=== PATIENT | male | born 1965 | race Caucasian/White ===

== ENCOUNTER 2016-09-14 13:31 | Observation (INO) | payer MEDICARE ==
[2016-09-14] MEDS ORDERED: Nitrostat 0.4 MG (ED) SL ONE ×2 (13:40→13:49)
[2016-09-14] MEDS ORDERED: Sodium Chloride 0.9% 1000 ML 1,000 ML ONE (13:49)
--- NOTE | 2016-09-14 13:57 | ERPHSYRPT ---
- History of Present Illness Historian: patient Exam Limitations: no limitations Patient Subjective Stated Complaint: PT REPORTS CHEST PAIN RADIATING TO LEFT SIDE ET ARM BEGINNING 3 DAYS AGO-DENIES INCREASED WORK OF BREATHING BUT REPORTS PAIN INCREASES WITH DEEP BREATHING-INTERMITTANT COUGH-DENIES N/V/D Triage Nursing Assessment: PT FLUSHED PALE ET DRY UPON ARRIVAL-RESP NONLABORED- RIGHT RADIAL PULSE REGULAR ET STRONG-LUNGS DIMINISHED-REPORTS NUMBNESS TO LEFT FACE-LIGHTHEADEDNESS Physician History: Patient with history of cardiac stent 2 years ago for apparent myocardial infarction with chest pain left-sided for the past 3 days worse today. Also feels a little lightheaded today with some pain in the left upper chest left arm and neck and also some pain in the left lateral chest area. No nausea or vomiting. No fever or chills. Patient did take a full aspirin and Plavix at home already today. Patient does not have nitroglycerin at home. 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 Timing/Duration: today, day(s) (3), worse Activities at Onset: none Quality: aching, cramping, fullness, pressure, throbbing, tightness Location: other (left) Chest Pain Radiation: jaw, neck, arm Severity of Pain-Max: severe Severity of Pain-Current: severe Modifying Factors: Improves With: nothing Associated Symptoms: shortness of breath, dizziness, No nausea, No vomiting, No heartburn, No hurts to breathe Prior Chest Pain/Cardiac Workup: cardiac cath Nitro Today/Relief: 0.4 mg x 1, provided by ED Aspirin Treatment Today: 325 mg x 1, provided at home (and plavix) Allergies/Adverse Reactions: No Known Drug Allergies Allergy (Verified 09/14/16 17:50) Home Medications: Aspirin 81 gm Chew [Baby Aspirin 81 mg Chew] 80 tab PO DAILY 12/16/15 [ History] Clopidogrel Bisulfate 75 mg [PLAVIX 75 MG Tablet] 75 tab PO DAILY [History] Hx Tetanus, Diphtheria Vaccination/Date Given: Yes Hx Influenza Vaccination/Date Given: No Hx Pneumococcal Vaccination/Date Given: No Immunizations Up to Date: Yes - Review of Systems Constitutional: No Symptoms Eyes: No Symptoms Ears, Nose, & Throat: No Symptoms Respiratory: No Symptoms Cardiac: Chest Pain Abdominal/Gastrointestinal: No Symptoms Genitourinary Symptoms: No Symptoms Musculoskeletal: No Symptoms Skin: No Symptoms Neurological: No Symptoms Psychological: No Symptoms Endocrine: No Symptoms Hematologic/Lymphatic: No Symptoms, Easy Bruising - Past Medical History Pertinent Past Medical History: Yes Neurological History: No Pertinent History ENT History: No Pertinent History Cardiac History: Coronary Artery Disease, Hypertension Respiratory History: No Pertinent History Endocrine Medical History: No Pertinent History Musculoskeletal History: No Pertinent History GI Medical History: No Pertinent History History: No Pertinent History Psycho-Social History: No Pertinent History Male Reproductive Disorders: No Pertinent History Other Medical History: BLOOD CLOT LEFT LEG, stent placed in past - Past Surgical History Past Surgical History: Yes Neuro Surgical History: No Pertinent History Cardiac: Cardiac Catheterization, Cardiac Stent Respiratory: No Pertinent History Gastrointestinal: No Pertinent History Genitourinary: No Pertinent History Musculoskeletal: No Pertinent History Male Surgical History: No Pertinent History Other Surgical History: stent in left leg - Social History Smoking Status: Current every day smoker How long have you smoked: 40 Exposure to second hand smoke: Yes Drug Use: none Patient Lives Alone: No - Nursing Vital Signs Temperature: 98.4 F Temperature Source: Oral Pulse Rate: 76 Respiratory Rate: 22 Pain Intensity: 7 - Physical Exam General Appearance: moderate distress, alert, anxiety Eye Exam: PERRL/EOMI Ears, Nose, Throat Exam: normal ENT inspection Neck Exam: normal inspection, non-tender, supple, full range of motion Respiratory Exam: normal breath sounds, lungs clear Cardiovascular Exam: regular rate/rhythm, normal heart sounds, normal peripheral pulses Gastrointestinal/Abdomen Exam: soft, normal bowel sounds, No tenderness, No distention, No mass, No guarding, No rebound Rectal Exam: deferred Back Exam: normal inspection, normal range of motion, No CVA tenderness Extremity Exam: normal inspection, normal range of motion, No calf tenderness, No sonia's sign Neurologic Exam: alert, oriented x 3, cooperative Skin Exam: normal color, warm, dry, No rash Lymphatic Exam: No adenopathy SpO2 Interpretation: normal SpO2: 100 Oxygen Delivery: Room Air - Course Nursing assessment & vital signs reviewed: Yes EKG Interpreted by Me: RATE (75), Sinus Rhythm, NORMAL AXIS, NORMAL INTERVALS, NORMAL QRS, Non-specific ST Changes, Other (no acute changes and no previous EKG available for comparison) - Radiology Exams Chest X-ray Interpretation: Reviewed by me, Discussed w/ radiologist, Negative Ordered Tests: Active Orders 24 hr Category Date Time Status Bedrest with BRP/BSC ROUTINE Activity 09/14/16 17:07 Active Admission/Status Order ROUTINE Care 09/14/16 17:07 Active Code Status Order ROUTINE Care 09/14/16 17:07 Active IV Care Q6H Care 09/14/16 17:07 Active Implement Chest Pain Pathway ROUTINE Care 09/14/16 17:07 Active Miscellaneous Nursing Order ROUTINE Care 09/14/16 17:07 Active Lopez Bertrand, Apply ROUTINE Care 09/14/16 17:07 Active Telemetry ROUTINE Care 09/14/16 17:07 Active Weight,Daily 0600 Care 09/14/16 17:07 Active Cardiac Diet Diet 09/14/16 Dinner Completed LIPID PROFILE AM.LAB Lab 09/15/16 05:08 Completed TROPONIN Q3H Lab 09/14/16 16:45 Completed TROPONIN Q3H Lab 09/14/16 19:50 Completed TROPONIN Q3H Lab 09/14/16 23:00 Completed TROPONIN Q3H Lab 09/15/16 02:00 Completed EKG Q8HX2,QAMX3,PRN RT 09/14/16 17:07 Completed Transfer Order Routine Transfer 09/14/16 16:39 Completed Medication Summary Discontinued Medications Generic Name Dose Route Start Last Admin Trade Name Freq PRN Reason Stop Dose Admin Acetaminophen 650 mg 09/14/16 17:07 09/15/16 05:36 Tylenol 325 Mg PO 10/14/16 17:06 650 mg Q4H PRN PRN Administration PAIN AND/OR FEVER Al Hydrox/Mg Hydrox/Simethicone 30 ml 09/14/16 17:07 Maalox Es 30 Ml Unit Dose PO 10/14/16 17:06 Q4H PRN PRN INDIGESTION Aspirin 325 mg 09/15/16 10:00 Ecotrin 325 Mg PO 10/15/16 09:59 DAILY LESLI Aspirin 81 mg 09/15/16 10:00 09/15/16 09:58 Ecotrin 81 Mg PO 10/15/16 09:59 81 mg DAILY LESLI Administration Clopidogrel Bisulfate 75 mg 09/15/16 10:00 09/15/16 09:58 Plavix 75 Mg Tablet PO 10/15/16 09:59 75 mg DAILY LESLI Administration Sodium Chloride 1,000 mls @ 100 mls/hr 09/14/16 13:45 09/14/16 22:59 Sodium Chloride 0.9% 1000 Ml IV 10/14/16 13:44 100 mls/hr .Q10H LESLI Administration Sodium Chloride Confirm 09/14/16 13:49 Sodium Chloride 0.9% 1000 Ml Administered 09/14/16 13:50 Dose 1,000 mls @ ud .ROUTE .STK-MED ONE Nicotine 21 mg 09/15/16 01:30 09/15/16 01:39 Nicoderm Cq 21 Mg TOP 10/15/16 01:29 21 mg Q24H LESLI Administration Nicotine 21 mg 09/15/16 22:00 Nicoderm Cq 21 Mg TOP 10/15/16 01:29 QPM LESLI Nicotine Confirm 09/15/16 01:32 Nicoderm Cq 21 Mg Administered 09/15/16 01:33 Dose 21 mg .ROUTE .STK-MED ONE Nitroglycerin 0.4 mg 09/14/16 13:40 09/14/16 14:07 Nitrostat 0.4 Mg (Ed) SL 09/14/16 13:41 0.4 mg STAT ONE Administration Nitroglycerin Confirm 09/14/16 13:49 Nitrostat 0.4 Mg (Ed) Administered 09/14/16 13:50 Dose 0.4 mg SL .STK-MED ONE Nitroglycerin 1 gm 09/14/16 14:37 09/14/16 14:42 Nitro-Bid 2% Ud Packets TOP 09/14/16 14:38 1 gm STAT ONE Administration Nitroglycerin Confirm 09/14/16 14:41 Nitro-Bid 2% Ud Packets Administered 09/14/16 14:42 Dose 1 gm .ROUTE .STK-MED ONE Nitroglycerin 1 gm 09/14/16 22:00 09/15/16 05:36 Nitro-Bid 2% Ud Packets TOP 10/14/16 21:59 1 gm Q8HT LESLI Administration Ondansetron HCl 4 mg 09/14/16 17:07 Zofran 4 Mg/2 Ml Vial IV 10/14/16 17:06 Q4H PRN PRN NAUSEA/VOMITING Lab/Rad Data: Laboratory Result Diagrams 09/14/16 14:26 09/14/16 14:26 Laboratory Results 09/14/16 09/14/16 09/14/16 Range/Units 16:45 14:26 14:26 WBC (4.0-10.5) K/mm3 RBC (4.1-5.6) M/mm3 Hgb (12.5-18.0) gm/dl Hct (42-50) % MCV (78-100) fl MCH (26-32) pg MCHC (32-36) g/dl RDW (11.5-14.0) % Plt Count (150-450) K/mm3 MPV (6-9.5) fl Gran % (36.0-66.0) % Lymphocytes % (24.0-44.0) % Monocytes % (0.0-12.0) % Eosinophils % (0.00-5.0) % Basophils % (0.0-0.4) % Basophils # (0-0.4) INR 0.94 (0.8-3.0) PTT 28.8 (24.1-36.1) SECONDS Sodium 141 (136-145) mEq/L Potassium 3.6 (3.5-5.1) mEq/L Chloride 107 (98-107) mEq/L Carbon Dioxide 23.7 (21-32) mEq/L Anion Gap 14.3 (5-15) MEQ/L BUN 9 (9-20) mg/dL Creatinine 0.85 (0.55-1.30) mg/dl Estimated GFR > 60 ML/MIN Glucose 101 (70-110) MG/DL Calcium 8.8 (8.5-10.1) mg/dL Total Bilirubin 0.3 (0.2-1.0) mg/dL AST 21 (15-37) U/L ALT 26 (12-78) U/L Alkaline Phosphatase 71 (46-116) U/L Troponin I < 0.017 (0.000-0.056) ng/ml Serum Total Protein 7.3 (6.4-8.2) gm/dL Albumin 3.8 (3.4-5.0) g/dL 09/14/16 09/14/16 Range/Units 14:26 13:45 WBC 5.5 (4.0-10.5) K/mm3 RBC 4.78 (4.1-5.6) M/mm3 Hgb 14.6 (12.5-18.0) gm/dl Hct 43.5 (42-50) % MCV 91.0 (78-100) fl MCH 30.5 (26-32) pg MCHC 33.6 (32-36) g/dl RDW 13.6 (11.5-14.0) % Plt Count 250 (150-450) K/mm3 MPV 9.9 H (6-9.5) fl Gran % 46.8 (36.0-66.0) % Lymphocytes % 38.8 (24.0-44.0) % Monocytes % 8.9 (0.0-12.0) % Eosinophils % 5.1 H (0.00-5.0) % Basophils % 0.4 (0.0-0.4) % Basophils # 0.02 (0-0.4) INR (0.8-3.0) PTT (24.1-36.1) SECONDS Sodium (136-145) mEq/L Potassium (3.5-5.1) mEq/L Chloride (98-107) mEq/L Carbon Dioxide (21-32) mEq/L Anion Gap (5-15) MEQ/L BUN (9-20) mg/dL Creatinine (0.55-1.30) mg/dl Estimated GFR ML/MIN Glucose (70-110) MG/DL Calcium (8.5-10.1) mg/dL Total Bilirubin (0.2-1.0) mg/dL AST (15-37) U/L ALT (12-78) U/L Alkaline Phosphatase (46-116) U/L Troponin I < 0.017 (0.000-0.056) ng/ml Serum Total Protein (6.4-8.2) gm/dL Albumin (3.4-5.0) g/dL - Progress Progress: improved Air Movement: good Progress Note: 09/14/16 16:38Patient markedly improved after administration of subungual nitroglycerin then then placed on nitroglycerin paste has had no further pain since that time. Troponin is negative EKG with no acute changes and chest x- ray normal. Case discussed with Dr. Cabello patient will be placed in observation [facility] for further evaluation treatment which is in agreement to the patient at this time. Blood Culture(s) Obtained: No Antibiotics given: No Discussed with : Akbar Will see patient in: hospital (observation) Counseled pt/family regarding: lab results, diagnosis - Departure Time of Disposition: 16:39 Departure Disposition: Observation Clinical Impression: Acute coronary insufficiency syndrome Condition: Fair Critical Care Time: No
[2016-09-14] MEDS: Sodium Chloride 0.9% 1000 ML 1,000 ML IV SCH ×2 (14:07→22:59)
--- NOTE | 2016-09-14 14:35 | XRAY ---
Indication: Chest pain. Comparison: March 20, 2016. Portable chest again demonstrates normal heart, lungs, and bony thorax.
[2016-09-14] MEDS ORDERED: NITRO-BID 2% UD PACKETS TOP ONE (14:37)
[2016-09-14] MEDS ORDERED: NITRO-BID 2% UD PACKETS ONE (14:41)
[2016-09-14 14:44] LABS: BASOPHIL % 0.4 % (0.0-0.4); Eosinophil % 5.1 % (0.00-5.0); Granulocytes % 46.8 % (36.0-66.0); Lymphocytes % 38.8 % (24.0-44.0); Mean Corpuscular Hemoglobin 30.5 pg (26-32); Mean Platelet Volume 9.9 fl (6-9.5); Monocytes % 8.9 % (0.0-12.0); Platelet Count 250 K/mm3 (150-450); Red Blood Count 4.78 M/mm3 (4.1-5.6); Red Cell Distribution Width 13.6 % (11.5-14.0); White Blood Count 5.5 K/mm3 (4.0-10.5)
[2016-09-14 14:50] LABS: INR 0.94 (0.8-3.0); PROTIME 10.5 SECONDS (8.83-12.87)
[2016-09-14 14:53] LABS: PTT 28.8 SECONDS (24.1-36.1)
[2016-09-14 14:58] LABS: ALBUMIN 3.8 g/dL (3.4-5.0); ALKALINE PHOSPHATASE 71 U/L (46-116); ANION GAP 14.3 MEQ/L (5-15); BILIRUBIN,TOTAL 0.3 mg/dL (0.2-1.0); BLOOD UREA NITROGEN 9 mg/dL (9-20); CHLORIDE 107 mEq/L (98-107); Carbon Dioxide 23.7 mEq/L (21-32); Glucose 101 MG/DL (70-110); Potassium 3.6 mEq/L (3.5-5.1); SGOT/AST 21 U/L (15-37); SGPT/ALT 26 U/L (12-78); SODIUM 141 mEq/L (136-145); Total Protein 7.3 gm/dL (6.4-8.2)
[2016-09-14] MEDS ORDERED: MAALOX ES 30 ML UNIT DOSE PO PRN (17:07)
[2016-09-14] MEDS ORDERED: TYLENOL 325 MG PO PRN (17:07)
[2016-09-14] MEDS ORDERED: Zofran 4 MG/2 ML VIAL IV PRN (17:07)
[2016-09-14] MEDS: NITRO-BID 2% UD PACKETS TOP SCH (22:01)
[2016-09-15] MEDS ORDERED: Nicoderm CQ 21 MG TOP SCH ×2 (01:30→22:00)
[2016-09-15] MEDS ORDERED: Nicoderm CQ 21 MG ONE (01:32)
[2016-09-15] MEDS: NITRO-BID 2% UD PACKETS TOP SCH (05:36)
--- NOTE | 2016-09-15 07:58 | PCM.HP ---
History of Present Illness - Chief Complaint Chief Complaint: Chest pain for 1-2 days History of Present Illness: is a 51 year old male.Patient with history of cardiac stent 2 years ago for apparent myocardial infarction with chest pain left-sided for the past 3 days worse today. Also feels a little lightheaded today with some pain in the left upper chest left arm and neck and also some pain in the left lateral chest area. No nausea or vomiting. No fever or chills. Patient did take a full aspirin and Plavix at home already today. Patient does not have nitroglycerin at home. 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 Timing/Duration: today, day(s) (3), worse Activities at Onset: none Quality: aching, cramping, fullness, pressure, throbbing, tightness Location: other (left) Chest Pain Radiation: jaw, neck, arm Severity of Pain-Max: severe Severity of Pain-Current: severe Modifying Factors: Improves With: nothing Associated Symptoms: shortness of breath, dizziness, No nausea, No vomiting, No heartburn, No hurts to breathe Prior Chest Pain/Cardiac Workup: cardiac cath Nitro Today/Relief: 0.4 mg x 1, provided by ED Aspirin Treatment Today: 325 mg x 1, provided at home (and plavix) - Review of Systems Constitutional: No Fever, No Chills Eyes: No Symptoms Ears, Nose, & Throat: No Symptoms Respiratory: No Cough, No Short Of Breath Cardiac: Chest Pain, No Edema, No Syncope Abdominal/Gastrointestinal: No Abdominal Pain, No Nausea, No Vomiting, No Diarrhea Genitourinary Symptoms: No Dysuria Musculoskeletal: No Back Pain, No Neck Pain Skin: No Rash Neurological: No Dizziness, No Focal Weakness, No Sensory Changes Psychological: No Symptoms Endocrine: No Symptoms Hematologic/Lymphatic: No Symptoms Immunological/Allergic: No Symptoms Medications & Allergies Home Medications: Home Medication List Aspirin 81 gm Chew [Baby Aspirin 81 mg Chew] 80 tab PO DAILY 12/16/15 [ History Confirmed 09/14/16] Clopidogrel Bisulfate 75 mg [PLAVIX 75 MG Tablet] 75 tab PO DAILY [History Confirmed 09/14/16] Allergies/Adverse Reactions: Allergies Allergy/AdvReac Type Severity Reaction Status Date / Time No Known Drug Allergies Allergy Verified 09/14/16 17:50 - Past Medical History Past Medical History: Yes Neurological History: No Pertinent History ENT History: No Pertinent History Cardiac History: Other Respiratory History: No Pertinent History Endocrine Medical History: No Pertinent History Musculoskelatal History: No Pertinent History GI Medical History: No Pertinent History History: No Pertinent History Pyscho-Social History: No Pertinent History Male Reproductive Disorders: No Pertinent History Comment: BLOOD CLOT LEFT LEG, stent placed in past - Past Surgical History Past Surgical History: Yes Neuro Surgical History: No Pertinent History Cardiac History: Cardiac Stent Respiratory Surgery: No Pertinent History GI Surgical History: No Pertinent History Genitourinary Surgical Hx: No Pertinent History Musculskeletal Surgical Hx: No Pertinent History Male Surgical History: No Pertinent History Other Surgical History: stent in left leg - Social History Smoking Status: Heavy tobacco smoker How long have you smoked: 20 years Exposure to second hand smoke: Yes Alcohol: None Drug Use: none - Physical Exam Vital Signs: Vital Signs - 24 hr Temp Pulse Pulse Resp BP Pulse Ox 09/15/16 07:32 98.2 F 64 18 115/65 98 09/15/16 04:00 98.4 F 68 17 103/50 95 09/14/16 23:59 97.9 F 62 18 107/57 97 09/14/16 20:00 98.2 F 68 20 104/55 96 09/14/16 17:28 98.2 F 59 L 20 118/60 96 09/14/16 17:11 98.2 F 59 L 20 118/60 96 09/14/16 17:09 98.2 F 59 L 20 118/60 96 09/14/16 16:47 98.4 F 76 22 100 09/14/16 16:05 60 16 90/38 100 09/14/16 15:15 67 18 113/61 98 09/14/16 14:44 70 18 108/52 95 09/14/16 13:50 100 09/14/16 13:33 98.4 F 76 80 22 150/87 100 General Appearance: no apparent distress, alert Neurologic Exam: alert, oriented x 3, cooperative, normal mood/affect, nml cerebellar function, nml station & gait, sensation nml, No motor deficits Eye Exam: PERRL/EOMI, eyes nml inspection Ears, Nose, Throat Exam: normal ENT inspection, TMs normal, pharynx normal, moist mucous membranes Neck Exam: normal inspection, non-tender, supple, full range of motion Respiratory Exam: normal breath sounds, lungs clear, No respiratory distress Cardiovascular Exam: regular rate/rhythm, normal heart sounds, normal peripheral pulses Gastrointestinal/Abdomen Exam: soft, normal bowel sounds, No tenderness, No mass Back Exam: normal inspection, normal range of motion, No CVA tenderness, No vertebral tenderness Extremity Exam: normal inspection, normal range of motion, pelvis stable Skin Exam: normal color, warm, dry, No rash Lymphatic Exam: No adenopathy Results - Labs Lab/Micro Results: Lab Results-Last 24 Hours 09/14/16 09/14/16 09/15/16 Range/Units 19:50 23:00 02:00 Troponin I < 0.017 < 0.017 < 0.017 (0.000-0.056) ng/ml Triglycerides (30-200) mg/dL Cholesterol (100-200) mg/dL LDL Cholesterol (5-99) mg/dL HDL Cholesterol (35-60) mg/dL Heart Disease Risk Ratio 09/15/16 Range/Units 05:08 Troponin I (0.000-0.056) ng/ml Triglycerides 93 (30-200) mg/dL Cholesterol 140 (100-200) mg/dL LDL Cholesterol 95 (5-99) mg/dL HDL Cholesterol 31 L (35-60) mg/dL Heart Disease Risk Ratio 4.5 - Other Procedures and Tests Respiratory Therapy 09/16/16 05:00 EKG ONCE 09/17/16 05:00 EKG ONCE Assessment/Plan (1) Acute coronary insufficiency syndrome Status: Acute Assessment & Plan: Chief Complaint Diagnosis Chest pain for 1-2 days Allergies Allergy/AdvReac Type Severity Reaction Status Date / Time No Known Drug Allergies Allergy Verified 09/14/16 17:50 Vital Signs (Last 24 hours) Temp Pulse Resp BP Pulse Ox 09/15/16 16:18 98.4 F 76 22 100 09/15/16 10:01 97.8 F 80 20 126/68 97 09/15/16 07:32 98.2 F 64 18 115/65 98 09/15/16 04:00 98.4 F 68 17 103/50 95 09/14/16 23:59 97.9 F 62 18 107/57 97 09/14/16 20:00 98.2 F 68 20 104/55 96 Current Medications Discontinued Medications Generic Name Dose Route Start Last Admin Trade Name Freq PRN Reason Stop Dose Admin Acetaminophen 650 mg 09/14/16 17:07 09/15/16 05:36 Tylenol 325 Mg PO 10/14/16 17:06 650 mg Q4H PRN PRN Administration PAIN AND/OR FEVER Al Hydrox/Mg Hydrox/Simethicone 30 ml 09/14/16 17:07 Maalox Es 30 Ml Unit Dose PO 10/14/16 17:06 Q4H PRN PRN INDIGESTION Aspirin 325 mg 09/15/16 10:00 Ecotrin 325 Mg PO 10/15/16 09:59 DAILY LESLI Aspirin 81 mg 09/15/16 10:00 09/15/16 09:58 Ecotrin 81 Mg PO 10/15/16 09:59 81 mg DAILY LESLI Administration Clopidogrel Bisulfate 75 mg 09/15/16 10:00 09/15/16 09:58 Plavix 75 Mg Tablet PO 10/15/16 09:59 75 mg DAILY LESLI Administration Sodium Chloride 1,000 mls @ 100 mls/hr 09/14/16 13:45 09/14/16 22:59 Sodium Chloride 0.9% 1000 Ml IV 10/14/16 13:44 100 mls/hr .Q10H LESLI Administration Sodium Chloride Confirm 09/14/16 13:49 Sodium Chloride 0.9% 1000 Ml Administered 09/14/16 13:50 Dose 1,000 mls @ ud .ROUTE .STK-MED ONE Nicotine 21 mg 09/15/16 01:30 09/15/16 01:39 Nicoderm Cq 21 Mg TOP 10/15/16 01:29 21 mg Q24H LESLI Administration Nicotine 21 mg 09/15/16 22:00 Nicoderm Cq 21 Mg TOP 10/15/16 01:29 QPM LESLI Nicotine Confirm 09/15/16 01:32 Nicoderm Cq 21 Mg Administered 09/15/16 01:33 Dose 21 mg .ROUTE .STK-MED ONE Nitroglycerin 0.4 mg 09/14/16 13:40 09/14/16 14:07 Nitrostat 0.4 Mg (Ed) SL 09/14/16 13:41 0.4 mg STAT ONE Administration Nitroglycerin Confirm 09/14/16 13:49 Nitrostat 0.4 Mg (Ed) Administered 09/14/16 13:50 Dose 0.4 mg SL .STK-MED ONE Nitroglycerin 1 gm 09/14/16 14:37 09/14/16 14:42 Nitro-Bid 2% Ud Packets TOP 09/14/16 14:38 1 gm STAT ONE Administration Nitroglycerin Confirm 09/14/16 14:41 Nitro-Bid 2% Ud Packets Administered 09/14/16 14:42 Dose 1 gm .ROUTE .STK-MED ONE Nitroglycerin 1 gm 09/14/16 22:00 09/15/16 05:36 Nitro-Bid 2% Ud Packets TOP 10/14/16 21:59 1 gm Q8HT LESLI Administration Ondansetron HCl 4 mg 09/14/16 17:07 Zofran 4 Mg/2 Ml Vial IV 10/14/16 17:06 Q4H PRN PRN NAUSEA/VOMITING Intake & Output (Last 24 hours) 09/13/16 09/14/16 09/15/16 09/16/16 11:59 11:59 11:59 11:59 Intake Total 2886 Output Total 1600 Balance 1286 Weight 74.843 kg Laboratory Results (Last 24 hours) 09/15/16 09/15/16 09/14/16 05:08 02:00 23:00 Troponin I < 0.017 < 0.017 Triglycerides 93 Cholesterol 140 LDL Cholesterol 95 HDL Cholesterol 31 L Heart Disease Risk Ratio 4.5 09/14/16 19:50 Troponin I < 0.017 Triglycerides Cholesterol LDL Cholesterol HDL Cholesterol Heart Disease Risk Ratio Orders (Last 24 hours) Category Date Time Status Bedrest with BRP/BSC ROUTINE Activity 09/14/16 17:07 Active Admission/Status Order ROUTINE Care 09/14/16 17:07 Active Code Status Order ROUTINE Care 09/14/16 17:07 Active IV Care Q6H Care 09/14/16 17:07 Active Implement Chest Pain Pathway ROUTINE Care 09/14/16 17:07 Active Miscellaneous Nursing Order ROUTINE Care 09/14/16 17:07 Active Lopez Bertrand, Apply ROUTINE Care 09/14/16 17:07 Active Telemetry ROUTINE Care 09/14/16 17:07 Active Weight,Daily 0600 Care 09/14/16 17:07 Active Rehabilitation Team Lead/Discharge Plan ROUTINE Cons 09/14/16 17:48 Active Discharge Routine Discharge 09/15/16 09:22 Ordered Discharge/Telephone Order Routine Discharge 09/15/16 09:22 Active LIPID PROFILE AM.LAB Lab 09/15/16 05:08 Completed TROPONIN Q3H Lab 09/14/16 16:45 Completed TROPONIN Q3H Lab 09/14/16 19:50 Completed TROPONIN Q3H Lab 09/14/16 23:00 Completed TROPONIN Q3H Lab 09/15/16 02:00 Completed Acetaminophen 325 mg [Tylenol 325 mg] Med 09/14/16 17:07 Discontinued 650 mg PO Q4H PRN PRN Aspirin EC 325 mg [Ecotrin 325 MG] Med 09/15/16 10:00 Discontinued 325 mg PO DAILY Aspirin EC 81 mg [Ecotrin 81 mg] Med 09/15/16 10:00 Discontinued 81 mg PO DAILY Clopidogrel Bisulfate 75 mg [PLAVIX 75 MG Tablet] Med 09/15/16 10:00 Discontinued 75 mg PO DAILY Mag Hydrox/Al Hydrox/Simeth [Maalox Es 30 ml Unit Med 09/14/16 17:07 Discontinued Dose] 30 ml PO Q4H PRN PRN Nicotine 21 mg [Nicoderm CQ 21 MG] Med 09/15/16 01:32 Discontinued 21 mg .ROUTE .STK-MED ONE Nicotine 21 mg [Nicoderm CQ 21 MG] Med 09/15/16 01:30 Discontinued 21 mg TOP Q24H Nicotine 21 mg [Nicoderm CQ 21 MG] Med 09/15/16 22:00 Discontinued 21 mg TOP QPM Nitroglycerin 2 %Ointment [Nitro-Bid 2% Ud Packets Med 09/14/16 22:00 Discontinued *] 1 gm TOP Q8HT Ondansetron HCl 4 mg/2 ml [Zofran 4 MG/2 ML VIAL] Med 09/14/16 17:07 Discontinued 4 mg IV Q4H PRN PRN Cardiolite Stress Test-RT ONCE RT 09/15/16 09:12 Active EKG ONCE RT 09/14/16 21:30 Completed EKG ONCE RT 09/15/16 05:00 Completed EKG ONCE RT 09/16/16 05:00 Active EKG ONCE RT 09/17/16 05:00 Active EKG Q8HX2,QAMX3,PRN RT 09/14/16 17:07 Completed Smoking Cessation Education ONCE RT 09/14/16 17:48 Completed Transfer Order Routine Transfer 09/14/16 16:39 Completed Patient Care Notes (Last 24 hours) 09/15/16 10:51 Respiratory Note by Rupal Carey CARDIOLITE STRESS TEST SCHEDULED FOR MondaySeptember AT 6AM ORDERED BY DR. MARTINEZ. NURSE NOTIFIED. Initialized on 09/15/16 10:51 - END OF NOTE Code(s): I20.0 - UNSTABLE ANGINA (2) Chest pain Status: Acute Qualifiers: Chest pain type: precordial pain Qualified Code(s): R07.2 - Precordial pain Code(s): R07.9 - CHEST PAIN, UNSPECIFIED
[2016-09-15] MEDS ORDERED: PLAVIX 75 MG Tablet PO SCH (10:00)
[2016-09-15] MEDS ORDERED: BABY ASPIRIN 81 MG CHEW PO SCH (10:00)
[2016-09-15] MEDS ORDERED: Ecotrin 325 MG PO SCH (10:00)
[2016-09-15] MEDS ORDERED: ECOTRIN 81 MG PO SCH (10:00)
[2016-09-15 10:04] VITALS: BP 126/68
[2016-09-15 16:18] VITALS: PULSE 76; O2SAT 100
--- NOTE | 2016-09-15 17:33 | PCM.DCORD ---
- Discharge Discharge Date: 09/15/16 Disposition: Home, Self-Care Condition: Stable Prescriptions: Continue Aspirin 81 gm Chew [Baby Aspirin 81 mg Chew] 80 tab PO DAILY Clopidogrel Bisulfate 75 mg [PLAVIX 75 MG Tablet] 75 tab PO DAILY Instructions: Heart-Healthy Diet, Atypical Chest Pain, Quit Smoking Additional Instructions: Follow up with at [facility] on 09/22/16 @ 1045a.m. COME TO HOSPITAL DIRECTED BY RESPIRATORY DEPARTMENT FOR YOUR STRESS TEST @ 6 a.m. Follow up with: TA MARTINEZ MD [Primary Care Provider] - 09/22/16 10:45 am Forms: Discharge Instructions
== END 2016-09-15 10:20 | disposition home or self-care (01) ==
LOC: ED 13:31 → MED SURG 17:05
PROVIDERS: ADMIT General Practice; ATTEND General Practice
DX: I20.0 Unstable angina (principal); Z72.0 Tobacco use; R07.89 Other chest pain; Z79.899 Other long term (current) drug therapy; Z79.82 Long term (current) use of aspirin
CPT/HCPCS: 36000; 36415; 71010; 80053; 80061; 83721; 84484; 85025; 85610; 85730; 93005; 93041; 93268; 96360; 96361; 99284; 99285; G0378

== ENCOUNTER 2016-09-20 06:44 | Emergency (ER) | payer MEDICARE ==
[2016-09-20] MEDS ORDERED: Sodium Chloride 0.9% 1000 ML 1,000 ML IV SCH (07:15)
[2016-09-20] MEDS ORDERED: NITRO-BID 2% UD PACKETS TOP ONE (07:15)
[2016-09-20] MEDS ORDERED: NITRO-BID 2% UD PACKETS ONE (07:26)
[2016-09-20] MEDS ORDERED: Sodium Chloride 0.9% 1000 ML 1,000 ML ONE (07:26)
[2016-09-20 07:35] VITALS: O2SAT 95
[2016-09-20 07:48] LABS: BASOPHIL % 0.4 % (0.0-0.4); Eosinophil % 4.7 % (0.00-5.0); Granulocytes % 43.7 % (36.0-66.0); Lymphocytes % 42.5 % (24.0-44.0); Mean Cell Volume 92.2 fl (78-100); Mean Corpuscular Hemoglobin 30.7 pg (26-32); Mean Platelet Volume 9.7 fl (6-9.5); Monocytes % 8.7 % (0.0-12.0); Platelet Count 234 K/mm3 (150-450); Red Blood Count 4.73 M/mm3 (4.1-5.6); Red Cell Distribution Width 13.5 % (11.5-14.0); White Blood Count 5.5 K/mm3 (4.0-10.5)
[2016-09-20 07:49] LABS: COMPLETE URINE MICROSCOPIC? NO; Collection Type VOID
--- NOTE | 2016-09-20 07:51 | ERPHSYRPT ---
- History of Present Illness Time Seen by Provider: 09/20/16 07:07 Historian: patient Patient Subjective Stated Complaint: "my chest hurts and my back on the left side. my face feels funny too. i have been having this off and on for about a week now. i was released a couple days ago for the same thing. i am suppose to have a stress test on the 2nd." Triage Nursing Assessment: aox3, breathign easy unlabored, skin pink warm dry, moving all extrmities, no facial droop noted, perrla, no drift noted to bilat upper and lower extrimities Physician History: CC: chest pain hx: 51 y/o patient of Dr Webber. He has hx of prior stenting procedure at [facility] 2 years when his leg turned black. 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 He reports some chest pain since that time. He has more chest pain this week and was seen earlier and admitted to chest pain observation. He has heart stress test scheduled later this week. He called EMS for worsened chest pain over past 4 days, some dyspnea, some dizziness when up. He used NTG while in the hospital and it helped the pain. 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 ALL: None Meds: Plavix, ASA ILL: Vascular disease Surg: leg stenting Social: Continues to smoke Timing/Duration: day(s) (4) Severity of Pain-Max: moderate Severity of Pain-Current: mild Nitro Today/Relief: no nitro taken today Aspirin Treatment Today: 81 mg x 1, provided at home Allergies/Adverse Reactions: No Known Drug Allergies Allergy (Verified 09/20/16 06:47) Home Medications: Aspirin 81 gm Chew [Baby Aspirin 81 mg Chew] 80 tab PO DAILY 12/16/15 [ History] Clopidogrel Bisulfate 75 mg [PLAVIX 75 MG Tablet] 75 tab PO DAILY [History] Hx Tetanus, Diphtheria Vaccination/Date Given: Yes Hx Influenza Vaccination/Date Given: No Hx Pneumococcal Vaccination/Date Given: No - Review of Systems Constitutional: No Fever, No Chills Eyes: No Symptoms Ears, Nose, & Throat: No Symptoms Respiratory: Dyspnea, No Cough Cardiac: Chest Pain Abdominal/Gastrointestinal: No Abdominal Pain, No Nausea, No Vomiting Musculoskeletal: No Back Pain Skin: No Rash Neurological: No Headache All Other Systems: Reviewed and Negative - Past Medical History Pertinent Past Medical History: Yes Neurological History: No Pertinent History ENT History: No Pertinent History Cardiac History: Other Respiratory History: No Pertinent History Endocrine Medical History: No Pertinent History Musculoskeletal History: No Pertinent History GI Medical History: No Pertinent History History: No Pertinent History Psycho-Social History: No Pertinent History Male Reproductive Disorders: No Pertinent History Other Medical History: BLOOD CLOT LEFT LEG, stent placed in past - Past Surgical History Past Surgical History: Yes Neuro Surgical History: No Pertinent History Cardiac: Cardiac Stent Respiratory: No Pertinent History Gastrointestinal: No Pertinent History Genitourinary: No Pertinent History Musculoskeletal: No Pertinent History Male Surgical History: No Pertinent History Other Surgical History: stent in left leg - Social History Smoking Status: Heavy tobacco smoker How long have you smoked: 20 years Exposure to second hand smoke: Yes Drug Use: none Patient Lives Alone: Yes - Nursing Vital Signs Temperature: 98.0 F Temperature Source: Oral Pulse Rate: 58 Respiratory Rate: 18 Pain Intensity: 7 - Physical Exam General Appearance: alert Eye Exam: PERRL/EOMI Ears, Nose, Throat Exam: normal ENT inspection, moist mucous membranes Neck Exam: normal inspection, non-tender, supple Respiratory Exam: normal breath sounds, lungs clear Cardiovascular Exam: regular rate/rhythm, other (2+ DP pulses bilateral, 2+ femoral pulses), No murmur, No edema Gastrointestinal/Abdomen Exam: soft, No tenderness, No distention Male Genitalia Exam: normal genitalia Back Exam: normal inspection Extremity Exam: normal inspection, normal range of motion Neurologic Exam: alert, oriented x 3, cooperative Skin Exam: warm, dry, No rash SpO2 Interpretation: normal SpO2: 95 Oxygen Delivery: Room Air - Course Nursing assessment & vital signs reviewed: Yes EKG Interpreted by Me: RATE (65), Sinus Rhythm, NORMAL AXIS, NORMAL INTERVALS ( QTc 428), NORMAL QRS, NORMAL ST-T - Radiology Exams cxr X-ray Interpretation: Reviewed by me (copd, no acute) Ordered Tests: Active Orders 24 hr Category Date Time Status Director Imaging STAT Care 09/20/16 07:07 Active Clean Catch Urine Specimen STAT Care 09/20/16 07:15 Active EKG-ER Only STAT Care 09/20/16 07:07 Active IV Insertion STAT Care 09/20/16 07:07 Active Pulse Oximetry (ED) STAT Care 09/20/16 07:07 Active CHEST 1 VIEW (PORTABLE) Stat Exams 09/20/16 07:07 Taken CBC W DIFF Stat Lab 09/20/16 07:42 Completed CMP Stat Lab 09/20/16 07:42 Completed TROPONIN Q3H Lab 09/20/16 07:42 Completed TROPONIN Q3H Lab 09/20/16 10:15 Ordered TROPONIN Q3H Lab 09/20/16 13:15 Ordered TROPONIN Q3H Lab 09/20/16 16:15 Ordered TROPONIN Q3H Lab 09/20/16 19:15 Ordered UA Stat Lab 09/20/16 07:44 Completed Urine Triage Profile Stat Lab 09/20/16 07:44 Completed Medication Summary Generic Name Dose Route Start Last Admin Trade Name Freq PRN Reason Stop Dose Admin Sodium Chloride 1,000 mls @ 100 mls/hr 09/20/16 07:15 09/20/16 07:28 Sodium Chloride 0.9% 1000 Ml IV 10/20/16 07:14 100 mls/hr .Q10H LESLI Administration Discontinued Medications Generic Name Dose Route Start Last Admin Trade Name Freq PRN Reason Stop Dose Admin Sodium Chloride Confirm 09/20/16 07:26 Sodium Chloride 0.9% 1000 Ml Administered 09/20/16 07:27 Dose 1,000 mls @ ud .ROUTE .STK-MED ONE Nitroglycerin 1 gm 09/20/16 07:15 09/20/16 07:28 Nitro-Bid 2% Ud Packets TOP 09/20/16 07:16 1 gm STAT ONE Administration Nitroglycerin Confirm 09/20/16 07:26 Nitro-Bid 2% Ud Packets Administered 09/20/16 07:27 Dose 1 gm .ROUTE .STK-MED ONE Lab/Rad Data: Laboratory Result Diagrams 09/20/16 07:42 09/20/16 07:42 Laboratory Results 09/20/16 09/20/16 09/20/16 Range/Units 07:44 07:44 07:42 WBC (4.0-10.5) K/mm3 RBC (4.1-5.6) M/mm3 Hgb (12.5-18.0) gm/dl Hct (42-50) % MCV (78-100) fl MCH (26-32) pg MCHC (32-36) g/dl RDW (11.5-14.0) % Plt Count (150-450) K/mm3 MPV (6-9.5) fl Gran % (36.0-66.0) % Lymphocytes % (24.0-44.0) % Monocytes % (0.0-12.0) % Eosinophils % (0.00-5.0) % Basophils % (0.0-0.4) % Basophils # (0-0.4) Sodium (136-145) mEq/L Potassium (3.5-5.1) mEq/L Chloride (98-107) mEq/L Carbon Dioxide (21-32) mEq/L Anion Gap (5-15) MEQ/L BUN (9-20) mg/dL Creatinine (0.55-1.30) mg/dl Estimated GFR ML/MIN Glucose (70-110) MG/DL Calcium (8.5-10.1) mg/dL Total Bilirubin (0.2-1.0) mg/dL AST (15-37) U/L ALT (12-78) U/L Alkaline Phosphatase (46-116) U/L Troponin I < 0.017 (0.000-0.056) ng/ml Serum Total Protein (6.4-8.2) gm/dL Albumin (3.4-5.0) g/dL Ur Collection Type VOID Urine Color YELLOW (YELLOW) Urine Appearance CLEAR (CLEAR) Urine pH 5.0 (5-6) Ur Specific [place] 1.015 (1.005-1.025) Urine Protein NEGATIVE (Negative) Urine Glucose (UA) NEGATIVE (NEGATIVE) mg/dL Urine Ketones NEGATIVE (NEGATIVE) Urine Nitrite NEGATIVE (NEGATIVE) Urine Bilirubin NEGATIVE (NEGATIVE) Urine Urobilinogen 0.2 (0-1) mg/dL Urine WBC (Auto) NEGATIVE (NEGATIVE) Urine RBC (Auto) NEGATIVE (0-5) Freddie/ul Urine Opiates Level NEG. (NEGATIVE) Ur Methadone NEG. (NEGATIVE) Urine Barbiturates NEG. (NEGATIVE) Ur Phencyclidine (PCP) NEG. (NEGATIVE) Urine Amphetamine NEG. (NEGATIVE) U Benzodiazepine Level NEG. (NEGATIVE) Urine Cocaine NEG. (NEGATIVE) Urine Marijuana (THC) NEG. (NEGATIVE) Specimen Received 09/20/16 0720 09/20/16 09/20/16 Range/Units 07:42 07:42 WBC 5.5 (4.0-10.5) K/mm3 RBC 4.73 (4.1-5.6) M/mm3 Hgb 14.5 (12.5-18.0) gm/dl Hct 43.6 (42-50) % MCV 92.2 (78-100) fl MCH 30.7 (26-32) pg MCHC 33.3 (32-36) g/dl RDW 13.5 (11.5-14.0) % Plt Count 234 (150-450) K/mm3 MPV 9.7 H (6-9.5) fl Gran % 43.7 (36.0-66.0) % Lymphocytes % 42.5 (24.0-44.0) % Monocytes % 8.7 (0.0-12.0) % Eosinophils % 4.7 (0.00-5.0) % Basophils % 0.4 (0.0-0.4) % Basophils # 0.02 (0-0.4) Sodium 144 (136-145) mEq/L Potassium 4.2 (3.5-5.1) mEq/L Chloride 108 H (98-107) mEq/L Carbon Dioxide 25.5 (21-32) mEq/L Anion Gap 14.6 (5-15) MEQ/L BUN 9 (9-20) mg/dL Creatinine 0.87 (0.55-1.30) mg/dl Estimated GFR > 60 ML/MIN Glucose 90 (70-110) MG/DL Calcium 9.0 (8.5-10.1) mg/dL Total Bilirubin 0.1 L (0.2-1.0) mg/dL AST 20 (15-37) U/L ALT 20 (12-78) U/L Alkaline Phosphatase 69 (46-116) U/L Troponin I (0.000-0.056) ng/ml Serum Total Protein 7.0 (6.4-8.2) gm/dL Albumin 3.6 (3.4-5.0) g/dL Ur Collection Type Urine Color (YELLOW) Urine Appearance (CLEAR) Urine pH (5-6) Ur Specific [place] (1.005-1.025) Urine Protein (Negative) Urine Glucose (UA) (NEGATIVE) mg/dL Urine Ketones (NEGATIVE) Urine Nitrite (NEGATIVE) Urine Bilirubin (NEGATIVE) Urine Urobilinogen (0-1) mg/dL Urine WBC (Auto) (NEGATIVE) Urine RBC (Auto) (0-5) Freddie/ul Urine Opiates Level (NEGATIVE) Ur Methadone (NEGATIVE) Urine Barbiturates (NEGATIVE) Ur Phencyclidine (PCP) (NEGATIVE) Urine Amphetamine (NEGATIVE) U Benzodiazepine Level (NEGATIVE) Urine Cocaine (NEGATIVE) Urine Marijuana (THC) (NEGATIVE) Specimen Received - Progress Progress Note: 09/20/16 08:42 PAin better with NTG paste. Discussed smoking cessation with pt. He needs cardiology consultation. CAlled Dr Ray Pérez for [facility] and she advised transfer to [facility] for chest pain obs and cardiology consultation. Pt may need heart cath. Pt agreeeable. Discussed with .: Jeannette Pérez Will see patient in: hospital (observation) Counseled pt/family regarding: lab results, diagnosis, need for follow-up - Departure Time of Disposition: 08:43 Departure Disposition: Transfer Clinical Impression: Chest pain, rule out acute myocardial infarction, Peripheral vascular disease Condition: Fair Critical Care Time: No
[2016-09-20 08:20] LABS: ALBUMIN 3.6 g/dL (3.4-5.0); ALKALINE PHOSPHATASE 69 U/L (46-116); ANION GAP 14.6 MEQ/L (5-15); BILIRUBIN,TOTAL 0.1 mg/dL (0.2-1.0); BLOOD UREA NITROGEN 9 mg/dL (9-20); CHLORIDE 108 mEq/L (98-107); Carbon Dioxide 25.5 mEq/L (21-32); Glucose 90 MG/DL (70-110); Potassium 4.2 mEq/L (3.5-5.1); SGOT/AST 20 U/L (15-37); SGPT/ALT 20 U/L (12-78); SODIUM 144 mEq/L (136-145)
[2016-09-20 08:55] VITALS: BP 144/79; PULSE 55
--- NOTE | 2016-09-20 09:05 | XRAY ---
Indication: Chest pain. Comparison: September 14, 2016. Portable chest remains clear. Heart is not enlarged. Vascularity normal. Bony thorax intact. Impression: Stable nonacute chest.
== END 2016-09-20 10:30 | disposition short-term general hospital (02) ==
LOC: ED 06:44
DX: R07.89 Other chest pain (principal); I73.9 Peripheral vascular disease, unspecified
CPT/HCPCS: 93041; 99285; 96360; 96361; 93005; 81002; 36415; 80307; 85025; 80053; 84484; 71010; A9270

== ENCOUNTER 2016-09-26 02:04 | Emergency (ER) | payer MEDICARE ==
[2016-09-26] MEDS ORDERED: Vistaril 50 MG/ML IM ONE ×2 (02:22→02:36)
[2016-09-26 02:40] LABS: BASOPHIL % 0.3 % (0.0-0.4); Eosinophil % 3.1 % (0.00-5.0); Granulocytes % 51.3 % (36.0-66.0); Lymphocytes % 35.8 % (24.0-44.0); Mean Cell Volume 91.3 fl (78-100); Mean Corpuscular Hemoglobin 30.6 pg (26-32); Mean Platelet Volume 9.4 fl (6-9.5); Monocytes % 9.5 % (0.0-12.0); Platelet Count 219 K/mm3 (150-450); Red Blood Count 4.61 M/mm3 (4.1-5.6); White Blood Count 6.7 K/mm3 (4.0-10.5)
--- NOTE | 2016-09-26 02:46 | ERPHSYRPT ---
- History of Present Illness Time Seen by Provider: 09/26/16 02:13 Source: patient, EMS Patient Subjective Stated Complaint: "i started feeling off after taking my protonix tonight. the left side of my face feels tight. i have had this on and off since before i went to [facility]. i was looking on the internet about stuff and got myself all worked up when this started. 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 He has hx of PVD s/o iliac stenting. He was seen last week in ER with chest pain and transferred to [facility] for cardiology consultation. He went home 2 days ago on plavix and PPI. He reports left face numbness since midnight tonite. No focal weakness. No rashs but face feels hot. In the past he had some associated with left hand and leg numbness as well but does not have that today. He states he felt anxious. He thinks he had panic attack. He came to ER per EMS. No headache. Timing/Duration: today Severity: mild Allergies/Adverse Reactions: No Known Drug Allergies Allergy (Verified 09/26/16 02:10) Home Medications: Aspirin 81 gm Chew [Baby Aspirin 81 mg Chew] 80 tab PO DAILY 12/16/15 [ History] Clopidogrel Bisulfate 75 mg [PLAVIX 75 MG Tablet] 75 tab PO DAILY [History] PANTOPRAZOLE 40 mg Tablet [Protonix 40MG Tablet] 40 mg PO QPM 09/26/16 [ History] Hx Tetanus, Diphtheria Vaccination/Date Given: Yes Hx Influenza Vaccination/Date Given: No Hx Pneumococcal Vaccination/Date Given: No - Review of Systems Constitutional: No Fever, No Chills Eyes: No Vision Changes, No Double Vision Ears, Nose, & Throat: No Symptoms Respiratory: No Symptoms Cardiac: No Symptoms, No Chest Pain Abdominal/Gastrointestinal: No Abdominal Pain, No Nausea, No Vomiting Genitourinary Symptoms: No Symptoms Musculoskeletal: No Symptoms Skin: No Symptoms, No Rash Neurological: Parasthesia, No Dizziness, No Focal Weakness, No Headache Psychological: Anxiety All Other Systems: Reviewed and Negative - Past Medical History Pertinent Past Medical History: Yes Neurological History: No Pertinent History ENT History: No Pertinent History Cardiac History: Other Respiratory History: No Pertinent History Endocrine Medical History: No Pertinent History Musculoskeletal History: No Pertinent History GI Medical History: Ulcer History: No Pertinent History Psycho-Social History: No Pertinent History Male Reproductive Disorders: No Pertinent History Other Medical History: Arterial occlusion leg - Past Surgical History Past Surgical History: Yes Neuro Surgical History: No Pertinent History Cardiac: Cardiac Stent Respiratory: No Pertinent History Gastrointestinal: No Pertinent History Genitourinary: No Pertinent History Musculoskeletal: No Pertinent History Male Surgical History: No Pertinent History Other Surgical History: stent in left leg - Social History Smoking Status: Heavy tobacco smoker How long have you smoked: 20 years Exposure to second hand smoke: Yes Drug Use: none Patient Lives Alone: Yes - Nursing Vital Signs Nursing Vital Signs: Initial Vital Signs Temperature 97.6 F Temperature Source Oral Pulse Rate 72 Respiratory Rate 12 Blood Pressure [] 113/50 Pain Intensity 0 - Qiana Coma Scale Best Eye Response (Solomon): (4) open spontaneously Best Verbal Response (Qiana): (5) oriented Best Motor Response (Qiana): (6) obeys commands Qiana Total: 15 - Physical Exam General Appearance: alert Eye Exam: bilateral eye: PERRL, EOMI Ears, Nose, Throat Exam: normal ENT inspection, moist mucous membranes Neck Exam: normal inspection, non-tender, supple Respiratory: normal breath sounds, lungs clear Cardiovascular: regular rate/rhythm, other (2+ femoral pulses), No murmur, No pulse deficit Gastrointestinal: soft, No tenderness, No distention Male Genitalia: normal genitalia Back Exam: normal inspection, normal range of motion Extremity Exam: normal inspection, normal range of motion Peripheral Pulses: femoral (R): 2+, femoral (L): 2+ Mental Status: alert, oriented x 3, 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 Exam: normal hearing, normal speech, PERRL Motor/Sensory: no motor deficit, no sensory deficit, no pronator drift DTR: knee (R): 2+, knee (L): 2+ Skin Exam: normal color, warm, dry, No rash SpO2 Interpretation: normal SpO2: 96 Oxygen Delivery: Room Air - Course Nursing assessment & vital signs reviewed: Yes EKG Interpreted by Me: RATE (74), Sinus Rhythm, NORMAL AXIS, NORMAL INTERVALS ( QTc 455), NORMAL QRS, NORMAL ST-T - Radiology Exams cxr X-ray Interpretation: Reviewed by me, Negative - CT Exams head CT Interpretation: Tele-radiologist Report (0304AM: negative), No/Intracranial Hemorrhag Ordered Tests: Active Orders 24 hr Category Date Time Status Side Splitter STAT Care 09/26/16 02:21 Active EKG-ER Only STAT Care 09/26/16 02:21 Active IV Insertion STAT Care 09/26/16 02:21 Active NPO (ED) STAT Care 09/26/16 02:21 Active Pulse Oximetry (ED) STAT Care 09/26/16 02:21 Active CHEST 1 VIEW (PORTABLE) Stat Exams 09/26/16 02:22 Taken HEAD WITHOUT CONTRAST [CT] Stat Exams 09/26/16 02:22 Taken CBC W DIFF Stat Lab 09/26/16 02:33 Completed CMP Stat Lab 09/26/16 02:33 Completed PROTIME WITH INR Stat Lab 09/26/16 02:33 Completed PTT Stat Lab 09/26/16 02:33 Completed UA W/ MICROSCOPIC Stat Lab 09/26/16 03:13 Completed Urine Triage Profile Stat Lab 09/26/16 03:13 Completed Medication Summary Discontinued Medications Generic Name Dose Route Start Last Admin Trade Name Freq PRN Reason Stop Dose Admin Hydroxyzine HCl 50 mg 09/26/16 02:22 09/26/16 02:54 Vistaril 50 Mg/Ml IM 09/26/16 02:23 50 mg STAT ONE Administration Hydroxyzine HCl Confirm 09/26/16 02:36 Vistaril 50 Mg/Ml Administered 09/26/16 02:37 Dose 50 mg IM .STK-MED ONE Lab/Rad Data: Laboratory Result Diagrams 09/26/16 02:33 09/26/16 02:33 Laboratory Results 09/26/16 09/26/16 09/26/16 Range/Units 03:13 03:13 02:33 WBC (4.0-10.5) K/mm3 RBC (4.1-5.6) M/mm3 Hgb (12.5-18.0) gm/dl Hct (42-50) % MCV (78-100) fl MCH (26-32) pg MCHC (32-36) g/dl RDW (11.5-14.0) % Plt Count (150-450) K/mm3 MPV (6-9.5) fl Gran % (36.0-66.0) % Lymphocytes % (24.0-44.0) % Monocytes % (0.0-12.0) % Eosinophils % (0.00-5.0) % Basophils % (0.0-0.4) % Basophils # (0-0.4) INR 0.97 (0.8-3.0) PTT 27.4 (24.1-36.1) SECONDS Sodium (136-145) mEq/L Potassium (3.5-5.1) mEq/L Chloride (98-107) mEq/L Carbon Dioxide (21-32) mEq/L Anion Gap (5-15) MEQ/L BUN (9-20) mg/dL Creatinine (0.55-1.30) mg/dl Estimated GFR ML/MIN Glucose (70-110) MG/DL Calcium (8.5-10.1) mg/dL Total Bilirubin (0.2-1.0) mg/dL AST (15-37) U/L ALT (12-78) U/L Alkaline Phosphatase (46-116) U/L Serum Total Protein (6.4-8.2) gm/dL Albumin (3.4-5.0) g/dL Ur Collection Type CLEAN CATCH Urine Color YELLOW (YELLOW) Urine Appearance CLEAR (CLEAR) Urine pH 8.5 (5-6) Ur Specific [place] 1.015 (1.005-1.025) Urine Protein 30 (Negative) Urine Glucose (UA) NEGATIVE (NEGATIVE) mg/dL Urine Ketones NEGATIVE (NEGATIVE) Urine Nitrite NEGATIVE (NEGATIVE) Urine Bilirubin NEGATIVE (NEGATIVE) Urine Urobilinogen 0.2 (0-1) mg/dL Urine WBC (Auto) NEGATIVE (NEGATIVE) Urine RBC (Auto) NEGATIVE (0-5) Freddie/ul Urine Microscopic RBC 0-2 (0-2) /HPF Urine Microscopic WBC 0-2 (0-5) /HPF Urine Bacteria FEW (NEGATIVE) /HPF Urine Mucus SLIGHT (NEGATIVE) /HPF Urine Opiates Level NEG. (NEGATIVE) Ur Methadone NEG. (NEGATIVE) Urine Barbiturates NEG. (NEGATIVE) Ur Phencyclidine (PCP) NEG. (NEGATIVE) Urine Amphetamine NEG. (NEGATIVE) U Benzodiazepine Level NEG. (NEGATIVE) Urine Cocaine NEG. (NEGATIVE) Urine Marijuana (THC) NEG. (NEGATIVE) Specimen Received 09/26/16 0310 09/26/16 09/26/16 Range/Units 02:33 02:33 WBC 6.7 (4.0-10.5) K/mm3 RBC 4.61 (4.1-5.6) M/mm3 Hgb 14.1 (12.5-18.0) gm/dl Hct 42.1 (42-50) % MCV 91.3 (78-100) fl MCH 30.6 (26-32) pg MCHC 33.5 (32-36) g/dl RDW 13.0 (11.5-14.0) % Plt Count 219 (150-450) K/mm3 MPV 9.4 (6-9.5) fl Gran % 51.3 (36.0-66.0) % Lymphocytes % 35.8 (24.0-44.0) % Monocytes % 9.5 (0.0-12.0) % Eosinophils % 3.1 (0.00-5.0) % Basophils % 0.3 (0.0-0.4) % Basophils # 0.02 (0-0.4) INR (0.8-3.0) PTT (24.1-36.1) SECONDS Sodium 143 (136-145) mEq/L Potassium 3.0 L* (3.5-5.1) mEq/L Chloride 103 (98-107) mEq/L Carbon Dioxide 31.7 (21-32) mEq/L Anion Gap 11.4 (5-15) MEQ/L BUN 17 (9-20) mg/dL Creatinine 0.98 (0.55-1.30) mg/dl Estimated GFR > 60 ML/MIN Glucose 101 (70-110) MG/DL Calcium 8.2 L (8.5-10.1) mg/dL Total Bilirubin 0.2 (0.2-1.0) mg/dL AST 22 (15-37) U/L ALT 33 (12-78) U/L Alkaline Phosphatase 79 (46-116) U/L Serum Total Protein 7.0 (6.4-8.2) gm/dL Albumin 3.7 (3.4-5.0) g/dL Ur Collection Type Urine Color (YELLOW) Urine Appearance (CLEAR) Urine pH (5-6) Ur Specific [place] (1.005-1.025) Urine Protein (Negative) Urine Glucose (UA) (NEGATIVE) mg/dL Urine Ketones (NEGATIVE) Urine Nitrite (NEGATIVE) Urine Bilirubin (NEGATIVE) Urine Urobilinogen (0-1) mg/dL Urine WBC (Auto) (NEGATIVE) Urine RBC (Auto) (0-5) Freddie/ul Urine Microscopic RBC (0-2) /HPF Urine Microscopic WBC (0-5) /HPF Urine Bacteria (NEGATIVE) /HPF Urine Mucus (NEGATIVE) /HPF Urine Opiates Level (NEGATIVE) Ur Methadone (NEGATIVE) Urine Barbiturates (NEGATIVE) Ur Phencyclidine (PCP) (NEGATIVE) Urine Amphetamine (NEGATIVE) U Benzodiazepine Level (NEGATIVE) Urine Cocaine (NEGATIVE) Urine Marijuana (THC) (NEGATIVE) Specimen Received - Progress Progress Note: 09/26/16 02:47 Liikely anxiety. Nothing to suggest TAD. Will get head CT and TIA workup. NIH scale 0 per RN so TPA not indicated. 09/26/16 02:50 Records from [facility]: Echo 09-21-16: EF 60%, no regional wall motion abnormalities, mild MR, trace TR, RVSP 31 09/26/16 03:40 No further symptoms. He feels anxiety/stress is causing him problems. Will Rx vistrail until he can see Dr Martinez. Counseled pt/family regarding: lab results, diagnosis, need for follow-up, rad results - Departure Time of Disposition: 03:41 Departure Disposition: Home Clinical Impression: Facial paresthesia, Anxiety Condition: Stable Critical Care Time: No Referrals: TA MARTINEZ MD [Primary Care Provider] - Instructions: Anxiety -- Adult, Numbness/tingling Additional Instructions: No driving. Followup this week with dr Martinez. Prescriptions: Hydroxyzine HCl 1 tab PO Q6H PRN PRN #24 tablet PRN Reason: rash,rest
[2016-09-26 02:57] LABS: ALBUMIN 3.7 g/dL (3.4-5.0); ALKALINE PHOSPHATASE 79 U/L (46-116); ANION GAP 11.4 MEQ/L (5-15); BILIRUBIN,TOTAL 0.2 mg/dL (0.2-1.0); BLOOD UREA NITROGEN 17 mg/dL (9-20); CHLORIDE 103 mEq/L (98-107); Carbon Dioxide 31.7 mEq/L (21-32); Glucose 101 MG/DL (70-110); SGOT/AST 22 U/L (15-37); SGPT/ALT 33 U/L (12-78); SODIUM 143 mEq/L (136-145)
[2016-09-26 03:00] LABS: INR 0.97 (0.8-3.0); PROTIME 10.9 SECONDS (8.83-12.87)
[2016-09-26 03:02] LABS: PTT 27.4 SECONDS (24.1-36.1)
[2016-09-26 03:31] LABS: COMPLETE URINE MICROSCOPIC? YES; Collection Type CLEAN CATCH; Ph 8.5 (5-6)
[2016-09-26 03:32] LABS: Bacteria FEW /HPF (NEGATIVE); Mucus SLIGHT /HPF (NEGATIVE); WBC 0-2 /HPF (0-5)
[2016-09-26 05:12] VITALS: PULSE 68
[2016-09-26 06:31] VITALS: BP 120/76
--- NOTE | 2016-09-26 08:54 | XRAY ---
Indication: Left facial numbness and tingling. Anxiety. Multiple contiguous axial images obtained through the head without contrast. Comparison: February 03, 2016. Stable remote left basal ganglia lacunar infarct. No acute intracranial hemorrhage, abnormal extra-axial fluid collection, or mass effect. Fourth ventricle is midline without hydrocephalus. Sanders-white matter differentiation preserved. Bony calvarium intact. Visualized paranasal sinuses and mastoid air cells are pneumatized and clear. Impression: Stable remote left basal ganglia lacunar infarct. No new or acute intracranial abnormalities. Comment: Preliminary interpretation was made by [facility]. No discrepancy. CT DI 71.08
--- NOTE | 2016-09-26 08:56 | XRAY ---
Indication: Left facial and extremity numbness. Comparison: September 20, 2016. Portable chest again demonstrates normal heart and lungs. Bony thorax intact. No new/acute findings.
[2016-09-26 09:18] VITALS: O2SAT 96
== END 2016-09-26 09:18 | disposition home or self-care (01) ==
LOC: ED 02:04
DX: R20.9 Unspecified disturbances of skin sensation (principal); F41.9 Anxiety disorder, unspecified
CPT/HCPCS: 36000; 36415; 70450; 71010; 80053; 80307; 81000; 85025; 85610; 85730; 93005; 93041; 96372; 99284; J3410

== ENCOUNTER 2016-12-03 07:22 | Emergency (ER) | payer MEDICARE ==
[2016-12-03] MEDS ORDERED: Pepcid 20 MG VIAL IV ONE ×2 (07:25→07:38)
[2016-12-03] MEDS ORDERED: Sodium Chloride 0.9% 1000 ML 1,000 ML IV SCH (07:30)
[2016-12-03] MEDS ORDERED: Sodium Chloride 0.9% 1000 ML 1,000 ML IV STA (07:34)
[2016-12-03] MEDS ORDERED: Vistaril 50 MG/ML IM ONE ×2 (07:34→07:38)
[2016-12-03] MEDS ORDERED: Sodium Chloride 0.9% 1000 ML 1,000 ML ONE (07:38)
--- NOTE | 2016-12-03 07:40 | ERPHSYRPT ---
- History of Present Illness Time Seen by Provider: 12/03/16 07:23 Historian: patient, EMS Patient Subjective Stated Complaint: PT REPORTS ALL OVER ABD PAIN-STATES THAT HE WAS DX WITH A PARTIALY BLOCKED STENT-REPORTS DECREASED BOWEL MOVEMENTS- NAUSEA BUT NO VOMITING-STATES THAT HE HAS HAD PROBLEMS FOR 3 MONTHS BUT INCREASING WORSE Triage Nursing Assessment: PT PINK WARM ET [id number] IS [id number] NONLABORED ET EASY-PT REPORTS HE IS HAVING BLACK STOOLS Physician History: CC: abd pain Hx: 51 y/o patient of Dr Martinez/Maximo. He reports hx of PUD with EGD one month ago. Has known PVD post stenting of legs. He has lower abd pain. Some constipation. Went to [facility] ER [address] and labs. Went home with mag citrate. Had large BM that was black. Dr Marsh considering pancreas problem. Abnl cardiac stress in September but no subsequent cath. No fever or chills. Pain worse with eating. Still smoking but has cut down significantly. Taking PPI. Taking plavix and ASA. The abd pain is worse and persists so he came to ER. Aching, lower, radiates to groin. Allergies/Adverse Reactions: No Known Drug Allergies Allergy (Verified 12/03/16 07:30) Home Medications: Aspirin 81 gm Chew [Baby Aspirin 81 mg Chew] 80 tab PO DAILY 12/16/15 [ History] Clopidogrel Bisulfate 75 mg [PLAVIX 75 MG Tablet] 75 tab PO DAILY [History] PANTOPRAZOLE 40 mg Tablet [Protonix 40MG Tablet] 40 mg PO QPM 09/26/16 [ History] Acetaminophen with Codeine [Acetaminophen-Cod #2 Tablet] 1 each PO UD 12/03/16 [ History] Lipase/Protease/Amylase [Jb Mccall 24,000 Units Capsule] 1 each PO TID 12/03/16 [ History] Montelukast Sodium [Singulair] 10 mg PO DAILY 12/03/16 [History] Hx Tetanus, Diphtheria Vaccination/Date Given: Yes Hx Influenza Vaccination/Date Given: No Hx Pneumococcal Vaccination/Date Given: No Immunizations Up to Date: Yes - Review of Systems Constitutional: Malaise, Weakness, No Fever, No Chills Eyes: No Symptoms Ears, Nose, & Throat: No Symptoms Respiratory: No Cough, No Dyspnea Cardiac: No Chest Pain Abdominal/Gastrointestinal: Abdominal Pain, Nausea, Constipation, Melena, No Vomiting Genitourinary Symptoms: No Dysuria, No Hematuria, No Flank Pain, No Testicle Pain Musculoskeletal: No Back Pain Skin: No Rash Neurological: No Headache All Other Systems: Reviewed and Negative - Past Medical History Pertinent Past Medical History: Yes Neurological History: No Pertinent History ENT History: No Pertinent History Cardiac History: Other Respiratory History: No Pertinent History Endocrine Medical History: No Pertinent History Musculoskeletal History: No Pertinent History GI Medical History: Ulcer History: No Pertinent History Psycho-Social History: No Pertinent History Male Reproductive Disorders: No Pertinent History Other Medical History: Arterial occlusion leg - Past Surgical History Past Surgical History: Yes Neuro Surgical History: No Pertinent History Cardiac: Cardiac Stent Respiratory: No Pertinent History Gastrointestinal: Other (EGD) Genitourinary: No Pertinent History Musculoskeletal: No Pertinent History Male Surgical History: No Pertinent History Other Surgical History: stent in left leg - Social History Smoking Status: Current some day smoker How long have you smoked: 20 years Exposure to second hand smoke: No Drug Use: none Patient Lives Alone: Yes - Nursing Vital Signs Nursing Vital Signs: Initial Vital Signs Temperature 98.6 F Temperature Source Oral Pulse Rate 78 Respiratory Rate 18 Blood Pressure [] 161/89 Pain Intensity 6 - Physical Exam General Appearance: alert Eye Exam: PERRL/EOMI Ears, Nose, Throat Exam: normal ENT inspection, moist mucous membranes Neck Exam: normal inspection, non-tender, supple Respiratory Exam: normal breath sounds, lungs clear Cardiovascular Exam: regular rate/rhythm, No murmur Gastrointestinal/Abdomen Exam: soft, tenderness (diffuse lower discomfort, no rebound or guarding. No hernia. 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, sensation nml, No motor deficits Skin Exam: warm, dry, No rash SpO2 Interpretation: normal SpO2: 99 Oxygen Delivery: Room Air - Course Nursing assessment & vital signs reviewed: Yes EKG Interpreted by Me: RATE (70), Sinus Rhythm, NORMAL AXIS, NORMAL INTERVALS ( 430), NORMAL QRS, NORMAL ST-T - Radiology Exams AAS X-ray Interpretation: Interpreted by me (negative, no free air, no obstr, left iliac stent present) Ordered Tests: Active Orders 24 hr Category Date Time Status Clean Catch Urine Specimen STAT Care 12/03/16 07:25 Active EKG-ER Only STAT Care 12/03/16 07:34 Active IV Insertion STAT Care 12/03/16 07:25 Active NPO (ED) STAT Care 12/03/16 07:25 Active OBSTR/ACUTE ABDOMEN SERIES Stat Exams 12/03/16 07:25 Taken CBC W DIFF Stat Lab 12/03/16 07:57 Completed CMP Stat Lab 12/03/16 07:57 Completed LIPASE Stat Lab 12/03/16 07:57 Completed Lactic Acid Stat Lab 12/03/16 07:25 Completed Occult Blood,Stool Other Stat Lab 12/03/16 08:20 Completed UA Stat Lab 12/03/16 08:23 Completed Urine Triage Profile Stat Lab 12/03/16 08:20 Completed Medication Summary Generic Name Dose Route Start Last Admin Trade Name Freq PRN Reason Stop Dose Admin Sodium Chloride 1,000 mls @ 100 mls/hr 12/03/16 07:30 12/03/16 07:49 Sodium Chloride 0.9% 1000 Ml IV 01/02/17 07:29 Not Given .Q10H LESLI Discontinued Medications Generic Name Dose Route Start Last Admin Trade Name Freq PRN Reason Stop Dose Admin Famotidine 20 mg 12/03/16 07:25 12/03/16 07:48 Pepcid 20 Mg Vial IV 12/03/16 07:26 20 mg STAT ONE Administration Famotidine Confirm 12/03/16 07:38 Pepcid 20 Mg Vial Administered 12/03/16 07:39 Dose 20 mg IV .STK-MED ONE Hydroxyzine HCl 50 mg 12/03/16 07:34 12/03/16 07:49 Vistaril 50 Mg/Ml IM 12/03/16 07:35 50 mg STAT ONE Administration Hydroxyzine HCl Confirm 12/03/16 07:38 Vistaril 50 Mg/Ml Administered 12/03/16 07:39 Dose 50 mg IM .STK-MED ONE Sodium Chloride 1,000 mls @ 999 mls/hr 12/03/16 07:34 12/03/16 07:49 Sodium Chloride 0.9% 1000 Ml IV 12/03/16 08:34 999 mls/hr .Q1H1M STA Administration Lab/Rad Data: Laboratory Result Diagrams 12/03/16 07:57 12/03/16 07:57 Laboratory Results 12/03/16 12/03/16 12/03/16 Range/Units 08:23 08:20 08:20 WBC (4.0-10.5) K/mm3 RBC (4.1-5.6) M/mm3 Hgb (12.5-18.0) gm/dl Hct (42-50) % MCV (78-100) fl MCH (26-32) pg MCHC (32-36) g/dl RDW (11.5-14.0) % Plt Count (150-450) K/mm3 MPV (6-9.5) fl Gran % (36.0-66.0) % Lymphocytes % (24.0-44.0) % Monocytes % (0.0-12.0) % Eosinophils % (0.00-5.0) % Basophils % (0.0-0.4) % Basophils # (0-0.4) Sodium (136-145) mEq/L Potassium (3.5-5.1) mEq/L Chloride (98-107) mEq/L Carbon Dioxide (21-32) mEq/L Anion Gap (5-15) MEQ/L BUN (9-20) mg/dL Creatinine (0.55-1.30) mg/dl Estimated GFR ML/MIN Glucose (70-110) MG/DL Lactic Acid (0.4-2.0) Calcium (8.5-10.1) mg/dL Total Bilirubin (0.2-1.0) mg/dL AST (15-37) U/L ALT (12-78) U/L Alkaline Phosphatase (46-116) U/L Serum Total Protein (6.4-8.2) gm/dL Albumin (3.4-5.0) g/dL Lipase (73-393) U/L Ur Collection Type CCMS Urine Color YELLOW (YELLOW) Urine Appearance CLEAR (CLEAR) Urine pH 6.0 (5-6) Ur Specific [place] 1.020 (1.005-1.025) Urine Protein NEGATIVE (Negative) Urine Glucose (UA) NEGATIVE (NEGATIVE) mg/dL Urine Ketones TRACE (NEGATIVE) Urine Nitrite NEGATIVE (NEGATIVE) Urine Bilirubin NEGATIVE (NEGATIVE) Urine Urobilinogen NORMAL (0-1) mg/dL Urine WBC (Auto) NEGATIVE (NEGATIVE) Urine RBC (Auto) NEGATIVE (0-5) Freddie/ul Stool Occult Blood NEGATIVE (Negative) Urine Opiates Level POS. (NEGATIVE) Ur Methadone NEG. (NEGATIVE) Urine Barbiturates NEG. (NEGATIVE) Ur Phencyclidine (PCP) NEG. (NEGATIVE) Urine Amphetamine NEG. (NEGATIVE) U Benzodiazepine Level NEG. (NEGATIVE) Urine Cocaine NEG. (NEGATIVE) Urine Marijuana (THC) NEG. (NEGATIVE) Specimen Received 12/03/2016 0812/03/16 12/03/16 12/03/16 Range/Units 07:57 07:57 07:25 WBC 6.3 (4.0-10.5) K/mm3 RBC 4.97 (4.1-5.6) M/mm3 Hgb 15.0 (12.5-18.0) gm/dl Hct 44.9 (42-50) % MCV 90.3 (78-100) fl MCH 30.2 (26-32) pg MCHC 33.4 (32-36) g/dl RDW 13.0 (11.5-14.0) % Plt Count 226 (150-450) K/mm3 MPV 9.4 (6-9.5) fl Gran % 49.7 (36.0-66.0) % Lymphocytes % 37.3 (24.0-44.0) % Monocytes % 7.8 (0.0-12.0) % Eosinophils % 4.9 (0.00-5.0) % Basophils % 0.3 (0.0-0.4) % Basophils # 0.02 (0-0.4) Sodium 143 (136-145) mEq/L Potassium 3.6 (3.5-5.1) mEq/L Chloride 106 (98-107) mEq/L Carbon Dioxide 29.2 (21-32) mEq/L Anion Gap 11.0 (5-15) MEQ/L BUN 15 (9-20) mg/dL Creatinine 1.00 (0.55-1.30) mg/dl Estimated GFR > 60 ML/MIN Glucose 107 (70-110) MG/DL Lactic Acid 1.2 (0.4-2.0) Calcium 9.1 (8.5-10.1) mg/dL Total Bilirubin 0.3 (0.2-1.0) mg/dL AST 22 (15-37) U/L ALT 28 (12-78) U/L Alkaline Phosphatase 63 (46-116) U/L Serum Total Protein 7.4 (6.4-8.2) gm/dL Albumin 3.8 (3.4-5.0) g/dL Lipase 111 (73-393) U/L Ur Collection Type Urine Color (YELLOW) Urine Appearance (CLEAR) Urine pH (5-6) Ur Specific [place] (1.005-1.025) Urine Protein (Negative) Urine Glucose (UA) (NEGATIVE) mg/dL Urine Ketones (NEGATIVE) Urine Nitrite (NEGATIVE) Urine Bilirubin (NEGATIVE) Urine Urobilinogen (0-1) mg/dL Urine WBC (Auto) (NEGATIVE) Urine RBC (Auto) (0-5) Freddie/ul Stool Occult Blood (Negative) Urine Opiates Level (NEGATIVE) Ur Methadone (NEGATIVE) Urine Barbiturates (NEGATIVE) Ur Phencyclidine (PCP) (NEGATIVE) Urine Amphetamine (NEGATIVE) U Benzodiazepine Level (NEGATIVE) Urine Cocaine (NEGATIVE) Urine Marijuana (THC) (NEGATIVE) Specimen Received - Progress Progress Note: 12/03/16 08:35 CT THRH 5-11: mild ileus with increased stool in ascending colon, atherosclerotic disease. 12/03/16 08:43 Pt has black stool, but heme negative and stable normal hg. Reviewed CT from earlier this week which was negative. Labs here negative. He sees GI Dr Marsh. Will release and follow up advised. Etiology of his pain uncertain but apparently has been ongoing for quite some time and has had specialist evaluation. Advised he continue his PUD medications and call Dr Marsh/Akbar Monday. Counseled pt/family regarding: lab results, diagnosis, need for follow-up, rad results - Departure Time of Disposition: 08:44 Departure Disposition: Home Clinical Impression: Chronic abdominal pain, Smoker, chronic vascular disease Condition: Stable Critical Care Time: No Referrals: TA MARTINEZ MD [Primary Care Provider] - Instructions: Abdominal Pain-Adult, Quit Smoking, Peripheral Vascular (Arterial ) Disease Additional Instructions: No driving today. You need to work on continued smoking cessation. 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 Follow up with Dr Martinez. Return for problems or concerns. Continue your medications as already prescribed.
[2016-12-03 08:01] LABS: BASOPHIL % 0.3 % (0.0-0.4); Eosinophil % 4.9 % (0.00-5.0); Granulocytes % 49.7 % (36.0-66.0); Lymphocytes % 37.3 % (24.0-44.0); Mean Cell Volume 90.3 fl (78-100); Mean Corpuscular Hemoglobin 30.2 pg (26-32); Mean Platelet Volume 9.4 fl (6-9.5); Monocytes % 7.8 % (0.0-12.0); Platelet Count 226 K/mm3 (150-450); Red Blood Count 4.97 M/mm3 (4.1-5.6); White Blood Count 6.3 K/mm3 (4.0-10.5)
[2016-12-03 08:22] LABS: ALBUMIN 3.8 g/dL (3.4-5.0); ALKALINE PHOSPHATASE 63 U/L (46-116); BILIRUBIN,TOTAL 0.3 mg/dL (0.2-1.0); BLOOD UREA NITROGEN 15 mg/dL (9-20); CHLORIDE 106 mEq/L (98-107); Carbon Dioxide 29.2 mEq/L (21-32); Glucose 107 MG/DL (70-110); LIPASE 111 U/L (73-393); Potassium 3.6 mEq/L (3.5-5.1); SGOT/AST 22 U/L (15-37); SGPT/ALT 28 U/L (12-78); SODIUM 143 mEq/L (136-145); Total Protein 7.4 gm/dL (6.4-8.2)
[2016-12-03 08:33] LABS: Collection Type CCMS
[2016-12-03 08:37] LABS: COMPLETE URINE MICROSCOPIC? NO
--- NOTE | 2016-12-03 08:45 | XRAY ---
Indication: Abdominal pain. Comparison: Portable chest September 26, 2016. 2 views of the abdomen demonstrates mild scattered colonic fecal debris throughout. No focal bowel dilatation, obstruction, or free air. Solid organs unremarkable. Left iliac stent graft. Osseous structures intact with mild lumbar degenerative changes. Single frontal chest again demonstrates normal heart, lungs, and bony thorax. Impression: 1. Fecal stasis without obstruction. 2. Stable normal one view chest.
[2016-12-03 09:32] VITALS: BP 155/64; PULSE 69; O2SAT 98
== END 2016-12-03 09:31 | disposition home or self-care (01) ==
LOC: ED 07:22
DX: R10.9 Unspecified abdominal pain (principal); I99.9 Unspecified disorder of circulatory system; R11.0 Nausea; I73.9 Peripheral vascular disease, unspecified
CPT/HCPCS: 36000; 36415; 74022; 80053; 80307; 81002; 82272; 83605; 83690; 85025; 93005; 96360; 96372; 96374; 99284; 99285; J3410

== ENCOUNTER 2016-12-28 17:00 | Emergency (ER) | payer MEDICARE ==
[2016-12-28 17:10] VITALS: O2SAT 100
--- NOTE | 2016-12-28 17:17 | ERPHSYRPT ---
- History of Present Illness Time Seen by Provider: 12/28/16 17:05 Historian: patient Exam Limitations: no limitations Patient Subjective Stated Complaint: ulcer pain for 3 months Triage Nursing Assessment: ulcer pain for 3 months[address] supposed to see dr gotti tomorrow but pain meds for ulcer pain arent working for 3 moths and now abd pain is going up into chest. skin warm and dry. denies n/v/d. normal bm. pulses present. groin pain with urination Physician History: Pain completely reproducible to palpation over epigastrium and chest . No SOB, No dizziness. Timing/Duration: week(s) (12) Activities at Onset: none Quality: dullness Abdominal Pain Onset Location: epigastric Severity of Pain-Max: mild Severity of Pain-Current: mild Modifying Factors: Improves With: antacids Associated Symptoms: denies symptoms Previous symptoms: same symptoms as today (with chronic alcoholic pancreatic insufficiency. Taking his creon.) Allergies/Adverse Reactions: No Known Drug Allergies Allergy (Verified 12/28/16 17:10) Home Medications: Aspirin 81 gm Chew [Baby Aspirin 81 mg Chew] 80 tab PO DAILY 12/16/15 [ History] Clopidogrel Bisulfate 75 mg [PLAVIX 75 MG Tablet] 75 tab PO DAILY [History] PANTOPRAZOLE 40 mg Tablet [Protonix 40MG Tablet] 40 mg PO QPM 09/26/16 [ History] Lipase/Protease/Amylase [Jb Dr 24,000 Units Capsule] 1 each PO BID 12/03/16 [ History] Montelukast Sodium [Singulair] 10 mg PO DAILY 12/03/16 [History] Hx Tetanus, Diphtheria Vaccination/Date Given: Yes Hx Influenza Vaccination/Date Given: No Hx Pneumococcal Vaccination/Date Given: No Immunizations Up to Date: Yes - Review of Systems Constitutional: No Symptoms Eyes: No Symptoms Ears, Nose, & Throat: No Symptoms Respiratory: No Symptoms Cardiac: No Symptoms Abdominal/Gastrointestinal: Abdominal Pain, No Nausea, No Vomiting Musculoskeletal: No Symptoms Skin: No Symptoms Neurological: No Symptoms Psychological: No Symptoms Endocrine: No Symptoms Hematologic/Lymphatic: No Symptoms Immunological/Allergic: No Symptoms - Past Medical History Pertinent Past Medical History: Yes Neurological History: No Pertinent History ENT History: No Pertinent History Cardiac History: Other Respiratory History: No Pertinent History Endocrine Medical History: No Pertinent History Musculoskeletal History: No Pertinent History GI Medical History: Ulcer History: No Pertinent History Psycho-Social History: No Pertinent History Male Reproductive Disorders: No Pertinent History Other Medical History: Arterial occlusion leg - Past Surgical History Past Surgical History: Yes Neuro Surgical History: No Pertinent History Cardiac: No Pertinent History Respiratory: No Pertinent History Gastrointestinal: Other Genitourinary: No Pertinent History Musculoskeletal: No Pertinent History Male Surgical History: No Pertinent History Other Surgical History: stent in left leg - Social History Smoking Status: Former smoker How long have you smoked: 20 years Exposure to second hand smoke: Yes Drug Use: none Patient Lives Alone: No - Nursing Vital Signs Nursing Vital Signs: Initial Vital Signs Temperature 97.7 F Temperature Source Oral Pulse Rate 73 Respiratory Rate 18 Blood Pressure [Right Arm] 153/85 Pain Intensity 8 - Physical Exam General Appearance: mild distress Eye Exam: eyes nml inspection Ears, Nose, Throat Exam: normal ENT inspection, TMs normal, pharynx normal, moist mucous membranes Neck Exam: normal inspection, non-tender, supple, full range of motion Respiratory Exam: normal breath sounds, lungs clear, airway intact Cardiovascular Exam: regular rate/rhythm, normal heart sounds, normal peripheral pulses Gastrointestinal/Abdomen Exam: soft, normal bowel sounds Extremity Exam: normal inspection, normal range of motion, pelvis stable Neurologic Exam: alert, oriented x 3, cooperative Skin Exam: normal color, warm, dry SpO2 Interpretation: normal SpO2: 100 Oxygen Delivery: Room Air - Course Nursing assessment & vital signs reviewed: Yes - Progress Progress: improved Discussed with : Other (Maximo tomorrow as scheduled.) Counseled pt/family regarding: diagnosis, need for follow-up - Departure Time of Disposition: 17:15 Departure Disposition: Home Clinical Impression: Chronic GERD Condition: Stable Critical Care Time: No Prescriptions: GI COCKTAIL 60 ml [GI COCKTAIL 60ML (Belladonn/Phenobarb/Lidoc*] 60 ml PO STAT #0 bottle
[2016-12-28] MEDS ORDERED: GI COCKTAIL 60ML (Belladonn/Phenobarb/Lidoc PO ONE (17:20)
[2016-12-28] MEDS ORDERED: MAALOX ES 30 ML UNIT DOSE ONE (17:25)
[2016-12-28] MEDS ORDERED: XYLOCAINE HCl Viscous ONE (17:25)
[2016-12-28] MEDS ORDERED: Donnatol Liquid ONE (17:26)
[2016-12-28 17:45] VITALS: BP 127/82; PULSE 61
== END 2016-12-28 17:44 | disposition home or self-care (01) ==
LOC: ED 17:00
DX: K21.9 Gastro-esophageal reflux disease without esophagitis (principal); R10.13 Epigastric pain; Z79.899 Other long term (current) drug therapy
CPT/HCPCS: 93005; 99283; 99284; A9270-GY

== ENCOUNTER 2016-12-30 00:55 | Emergency (ER) | payer MEDICARE ==
[2016-12-30 01:19] VITALS: O2SAT 99
--- NOTE | 2016-12-30 01:20 | ERPHSYRPT ---
- History of Present Illness Time Seen by Provider: 12/30/16 01:08 Historian: patient Exam Limitations: no limitations Patient Subjective Stated Complaint: STATES HES HAD ONGOING ABDOMINAL AND SIDE PAIN FOR 4 MTHS, STATES PAIN IN HIS GROIN AND AROUND SCROTUM, PAIN ON URINATION Triage Nursing Assessment: PATIENT PUPILS PERRLA3, L;TERRANCE SOUNDS CLEAR, PAIN IN PELVIC AREA AROUND SCROTUM, BOWEL SOUNDS X4, FLANK PAIN UP LEFT SIDE AND INTO RIBS STOMACH TENDER TO TOUCH Physician History: FOR THE PAST 4 MONTHS PT HAS HAD A SORE THROAT AND INTERMITTENT LEFT CHEST AND ABDOMINAL PAIN LASTING UP TO 5 HOURS PER EPISODE; FOR THE PAST 2 DAYS RIGHT GROIN PAIN AND DYSURIA. PT STATES HE HAS BEEN DIAGNOSED WITH PANCREATITIS. PT DENIES VOMITING, FEVER, DIARRHEA. LAST BM WAS YESTERDAY & NOT DIARRHEAL. Allergies/Adverse Reactions: No Known Drug Allergies Allergy (Verified 12/28/16 17:10) Home Medications: Aspirin 81 gm Chew [Baby Aspirin 81 mg Chew] 80 tab PO DAILY 12/16/15 [ History] Clopidogrel Bisulfate 75 mg [PLAVIX 75 MG Tablet] 75 tab PO DAILY [History] PANTOPRAZOLE 40 mg Tablet [Protonix 40MG Tablet] 40 mg PO QPM 09/26/16 [ History] Lipase/Protease/Amylase [Creon Dr 24,000 Units Capsule] 1 each PO BID 12/03/16 [ History] Montelukast Sodium [Singulair] 10 mg PO DAILY 12/03/16 [History] Hx Tetanus, Diphtheria Vaccination/Date Given: Yes Hx Influenza Vaccination/Date Given: No Hx Pneumococcal Vaccination/Date Given: No - Review of Systems Constitutional: No Fever Ears, Nose, & Throat: Throat Pain Respiratory: No Dyspnea Cardiac: Chest Pain Abdominal/Gastrointestinal: Abdominal Pain, No Vomiting, No Diarrhea Genitourinary Symptoms: Dysuria Endocrine: No Excessive Sweating All Other Systems: Reviewed and Negative - Past Medical History Pertinent Past Medical History: Yes Neurological History: No Pertinent History ENT History: No Pertinent History Cardiac History: Other Respiratory History: No Pertinent History Endocrine Medical History: No Pertinent History Musculoskeletal History: No Pertinent History GI Medical History: Ulcer History: No Pertinent History Psycho-Social History: No Pertinent History Male Reproductive Disorders: No Pertinent History Other Medical History: Arterial occlusion leg - Past Surgical History Past Surgical History: Yes Neuro Surgical History: No Pertinent History Cardiac: No Pertinent History Respiratory: No Pertinent History Gastrointestinal: Other Genitourinary: No Pertinent History Musculoskeletal: No Pertinent History Male Surgical History: No Pertinent History Other Surgical History: stent in left leg - Social History Smoking Status: Former smoker How long have you smoked: 20 years Exposure to second hand smoke: Yes Drug Use: none Patient Lives Alone: No - Nursing Vital Signs Nursing Vital Signs: Initial Vital Signs Temperature 97.6 F Temperature Source Oral Pulse Rate 68 Respiratory Rate 20 Blood Pressure [] 148/79 Pain Intensity 10 - Physical Exam General Appearance: alert Eye Exam: PERRL/EOMI Ears, Nose, Throat Exam: pharynx normal, moist mucous membranes Neck Exam: normal inspection Respiratory Exam: lungs clear Cardiovascular Exam: normal heart sounds Gastrointestinal/Abdomen Exam: soft, normal bowel sounds Male Genitalia Exam: No penile discharge Back Exam: normal range of motion Extremity Exam: normal inspection, No pedal edema Neurologic Exam: alert, cooperative Skin Exam: warm, dry SpO2 Interpretation: normal SpO2: 99 Oxygen Delivery: Room Air - Course Nursing assessment & vital signs reviewed: Yes EKG Interpreted by Me: RATE (63), Sinus Rhythm, NORMAL AXIS, NORMAL INTERVALS - Radiology Exams Chest X-ray Interpretation: Interpreted by me, No Pneumonia - CT Exams Abdomen/Pelvis CT Interpretation: Tele-radiologist Report (NO ACUTE FINDINGS) - Radiology Ultrasound Exam Scrotal Ultrasound: Other (TECH REPORT: NO TORSION) Ordered Tests: Active Orders 24 hr Category Date Time Status Clean Catch Urine Specimen STAT Care 12/30/16 01:18 Active EKG-ER Only STAT Care 12/30/16 01:18 Active IV Insertion STAT Care 12/30/16 01:18 Active ABDOMEN AND PELVIS W/0 CONTRAS [CT] Stat Exams 12/30/16 01:18 Taken CHEST 1 VIEW (PORTABLE) Stat Exams 12/30/16 01:19 Taken TESTICLE [US] Stat Exams 12/30/16 02:30 Taken AMYLASE Stat Lab 12/30/16 01:15 Completed CBC W DIFF Stat Lab 12/30/16 01:15 Completed CMP Stat Lab 12/30/16 01:15 Completed CULTURE, THROAT Stat Lab 12/30/16 02:17 Received LIPASE Stat Lab 12/30/16 01:15 Completed Titus Screen Stat Lab 12/30/16 01:30 Completed STREP SCREEN-BETA A Stat Lab 12/30/16 02:17 Completed TROPONIN Stat Lab 12/30/16 01:15 Completed UA W/RFX UR CULTURE Stat Lab 12/30/16 01:20 Completed Urine Triage Profile Stat Lab 12/30/16 01:20 Completed Medication Summary Generic Name Dose Route Start Last Admin Trade Name Hermelindo PRN Reason Stop Dose Admin Sodium Chloride 1,000 mls @ 100 mls/hr 12/30/16 01:30 12/30/16 01:29 Sodium Chloride 0.9% 1000 Ml IV 01/29/17 01:29 100 mls/hr .Q10H LESLI Administration Lab/Rad Data: Laboratory Result Diagrams 12/30/16 01:15 12/30/16 01:15 Laboratory Results 12/30/16 12/30/16 12/30/16 Range/Units 02:17 01:30 01:20 WBC (4.0-10.5) K/mm3 RBC (4.1-5.6) M/mm3 Hgb (12.5-18.0) gm/dl Hct (42-50) % MCV (78-100) fl MCH (26-32) pg MCHC (32-36) g/dl RDW (11.5-14.0) % Plt Count (150-450) K/mm3 MPV (6-9.5) fl Gran % (36.0-66.0) % Lymphocytes % (24.0-44.0) % Monocytes % (0.0-12.0) % Eosinophils % (0.00-5.0) % Basophils % (0.0-0.4) % Basophils # (0-0.4) Sodium (136-145) mEq/L Potassium (3.5-5.1) mEq/L Chloride (98-107) mEq/L Carbon Dioxide (21-32) mEq/L Anion Gap (5-15) MEQ/L BUN (9-20) mg/dL Creatinine (0.55-1.30) mg/dl Estimated GFR ML/MIN Glucose (70-110) MG/DL Calcium (8.5-10.1) mg/dL Total Bilirubin (0.2-1.0) mg/dL AST (15-37) U/L ALT (12-78) U/L Alkaline Phosphatase (46-116) U/L Troponin I (0.000-0.056) ng/ml Serum Total Protein (6.4-8.2) gm/dL Albumin (3.4-5.0) g/dL Amylase (25-115) U/L Lipase (73-393) U/L Ur Collection Type Urine Color (YELLOW) Urine Appearance (CLEAR) Urine pH (5-6) Ur Specific [place] (1.005-1.025) Urine Protein (Negative) Urine Glucose (UA) (NEGATIVE) mg/dL Urine Ketones (NEGATIVE) Urine Nitrite (NEGATIVE) Urine Bilirubin (NEGATIVE) Urine Urobilinogen (0-1) mg/dL Urine WBC (Auto) (NEGATIVE) Urine RBC (Auto) (0-5) Freddie/ul Urine Opiates Level NEG. (NEGATIVE) Ur Methadone NEG. (NEGATIVE) Urine Barbiturates POS. (NEGATIVE) Ur Phencyclidine (PCP) NEG. (NEGATIVE) Urine Amphetamine NEG. (NEGATIVE) U Benzodiazepine Level NEG. (NEGATIVE) Urine Cocaine NEG. (NEGATIVE) Urine Marijuana (THC) NEG. (NEGATIVE) Monoscreen POSITIVE (Negative) Streptococcus Screen NEGATIVE (Negative) Specimen Received 12/30/16 12/30/16 12/30/16 Range/Units 01:20 01:15 01:15 WBC 6.4 (4.0-10.5) K/mm3 RBC 4.69 (4.1-5.6) M/mm3 Hgb 14.1 (12.5-18.0) gm/dl Hct 42.5 (42-50) % MCV 90.6 (78-100) fl MCH 30.1 (26-32) pg MCHC 33.2 (32-36) g/dl RDW 13.3 (11.5-14.0) % Plt Count 223 (150-450) K/mm3 MPV 9.6 H (6-9.5) fl Gran % 37.9 (36.0-66.0) % Lymphocytes % 49.2 H (24.0-44.0) % Monocytes % 8.1 (0.0-12.0) % Eosinophils % 4.5 (0.00-5.0) % Basophils % 0.3 (0.0-0.4) % Basophils # 0.02 (0-0.4) Sodium 142 (136-145) mEq/L Potassium 3.8 (3.5-5.1) mEq/L Chloride 106 (98-107) mEq/L Carbon Dioxide 26.3 (21-32) mEq/L Anion Gap 13.0 (5-15) MEQ/L BUN 18 (9-20) mg/dL Creatinine 0.89 (0.55-1.30) mg/dl Estimated GFR > 60 ML/MIN Glucose 89 (70-110) MG/DL Calcium 8.8 (8.5-10.1) mg/dL Total Bilirubin 0.20 (0.2-1.0) mg/dL AST 21 (15-37) U/L ALT 33 (12-78) U/L Alkaline Phosphatase 65 (46-116) U/L Troponin I < 0.017 (0.000-0.056) ng/ml Serum Total Protein 7.5 (6.4-8.2) gm/dL Albumin 3.7 (3.4-5.0) g/dL Amylase 91 (25-115) U/L Lipase 126 (73-393) U/L Ur Collection Type CLEAN CATCH Urine Color YELLOW (YELLOW) Urine Appearance CLEAR (CLEAR) Urine pH 7.0 (5-6) Ur Specific [place] 1.015 (1.005-1.025) Urine Protein NEGATIVE (Negative) Urine Glucose (UA) NEGATIVE (NEGATIVE) mg/dL Urine Ketones NEGATIVE (NEGATIVE) Urine Nitrite NEGATIVE (NEGATIVE) Urine Bilirubin NEGATIVE (NEGATIVE) Urine Urobilinogen 0.2 (0-1) mg/dL Urine WBC (Auto) NEGATIVE (NEGATIVE) Urine RBC (Auto) NEGATIVE (0-5) Freddie/ul Urine Opiates Level (NEGATIVE) Ur Methadone (NEGATIVE) Urine Barbiturates (NEGATIVE) Ur Phencyclidine (PCP) (NEGATIVE) Urine Amphetamine (NEGATIVE) U Benzodiazepine Level (NEGATIVE) Urine Cocaine (NEGATIVE) Urine Marijuana (THC) (NEGATIVE) Monoscreen (Negative) Streptococcus Screen (Negative) Specimen Received 17:0130 - Departure Time of Disposition: 03:28 Departure Disposition: Home Clinical Impression: INFECTIOUS MONONUCLEOSIS, CHEST PAIN, ABDOMINAL PAIN Condition: Fair Critical Care Time: No Referrals: TA MARTINEZ MD [Primary Care Provider] - Instructions: Abdominal Pain-Adult, Mononucleosis, Chest Pain Additional Instructions: FOLLOW UP WITH PRIVATE DOCTOR TOMORROW.
[2016-12-30] MEDS ORDERED: Sodium Chloride 0.9% 1000 ML 1,000 ML ONE (01:22)
[2016-12-30 01:30] LABS: BASOPHIL % 0.3 % (0.0-0.4); Eosinophil % 4.5 % (0.00-5.0); Granulocytes % 37.9 % (36.0-66.0); Lymphocytes % 49.2 % (24.0-44.0); Mean Cell Volume 90.6 fl (78-100); Mean Corpuscular Hemoglobin 30.1 pg (26-32); Mean Platelet Volume 9.6 fl (6-9.5); Monocytes % 8.1 % (0.0-12.0); Platelet Count 223 K/mm3 (150-450); Red Blood Count 4.69 M/mm3 (4.1-5.6); Red Cell Distribution Width 13.3 % (11.5-14.0); White Blood Count 6.4 K/mm3 (4.0-10.5)
[2016-12-30] MEDS ORDERED: Sodium Chloride 0.9% 1000 ML 1,000 ML IV SCH (01:30)
[2016-12-30 01:52] LABS: Collection Type CLEAN CATCH
[2016-12-30 01:53] LABS: ADD URINE CULTURE? NO (NO); COMPLETE URINE MICROSCOPIC? NO
[2016-12-30 02:05] LABS: ALBUMIN 3.7 g/dL (3.4-5.0); ALKALINE PHOSPHATASE 65 U/L (46-116); BLOOD UREA NITROGEN 18 mg/dL (9-20); CHLORIDE 106 mEq/L (98-107); Carbon Dioxide 26.3 mEq/L (21-32); Glucose 89 MG/DL (70-110); LIPASE 126 U/L (73-393); Potassium 3.8 mEq/L (3.5-5.1); SGOT/AST 21 U/L (15-37); SGPT/ALT 33 U/L (12-78); SODIUM 142 mEq/L (136-145); Total Protein 7.5 gm/dL (6.4-8.2)
[2016-12-30 02:06] LABS: TROPONIN < 0.017 ng/ml (0.000-0.056)
[2016-12-30] MEDS ORDERED: NORCO 5/325 MG PO ONE (03:29)
[2016-12-30] MEDS ORDERED: NORCO 5/325 MG ONE (03:34)
[2016-12-30 03:44] VITALS: BP 132/80; PULSE 68
--- NOTE | 2016-12-30 09:28 | XRAY ---
Indication: Left-sided pain. Comparison: December 03, 2016. Portable chest again demonstrates normal heart, lungs, and bony thorax.
--- NOTE | 2016-12-30 09:32 | XRAY ---
Indication: Left abdominal/flank pain. Nausea. Multiple contiguous axial images obtained through the abdomen and pelvis without contrast as ordered. Comparison: None Lung bases are clear. Heart is not enlarged. Small hiatal hernia. Noncontrasted stomach and bowel loops appear nonobstructed. Appendix borderline prominent measuring 7 mm in diameter without periappendiceal stranding or free fluid. No free air. Remaining liver, gallbladder, pancreas, spleen, adrenal glands, kidneys, ureters, and bladder appear unremarkable for noncontrast exam. Mild aortoiliac calcifications without AAA. Left common iliac, external iliac, common femoral artery stent graft. Lack of IV contrast precludes evaluation for stent patency. Osseous structures intact with mild lumbar degenerative changes. Small fatty left inguinal hernia. Impression: 1. Borderline prominent appendix without features for appendicitis. 2. Small hiatal hernia and small fatty left inguinal hernia. 3. No acute intra-abdominal/pelvic abnormalities on this noncontrast exam. Comment: Preliminary interpretation was made by [facility]. No critical discrepancy. CT DI 13.81
--- NOTE | 2016-12-30 09:40 | XRAY ---
Indication: Pain. Two-dimensional testicle sonogram performed. Comparison: None Both testicles homogeneous in echogenicity with normal color perfusion. The right testicle measures 5.0 x 1.7 x 2.9 cm and the left measures 4.0 x 1.9 x 2.8 cm. Small nonspecific bilateral scrotal hydroceles. Left and right epididymis sonographically unremarkable. There is presence of mild left-sided varicocele versus spermatocele. No suspicious solid extratesticular mass. Impression: 1. Mild left-sided varicocele versus spermatocele. 2. Small nonspecific bilateral scrotal hydroceles. 3. No suspicious intratesticular mass or torsion. Comment: Preliminary report was given. Varicocele/spermatocele not reported. I gave telephone report to Dr. Rodriguez in the ER at 0935 hrs. on December 30, 2016.
== END 2016-12-30 03:44 | disposition home or self-care (01) ==
LOC: ED 00:55
DX: B27.90 Infectious mononucleosis, unspecified without complication (principal); R07.89 Other chest pain; R10.9 Unspecified abdominal pain; R30.0 Dysuria; K85.90 Acute pancreatitis without necrosis or infection, unspecified; I86.1 Scrotal varices; N43.40 Spermatocele of epididymis, unspecified
CPT/HCPCS: 36000; 36415; 71010; 74176; 76870; 80053; 80307; 81002; 82150; 83690; 84484; 85025; 86308; 87070; 87430; 93005; 96360; 96361; 99284; A9270-GY

== ENCOUNTER 2017-01-07 12:44 | Emergency (ER) | payer MEDICARE ==
--- NOTE | 2017-01-07 13:41 | ERPHSYRPT ---
- History of Present Illness Time Seen by Provider: 01/07/17 13:29 Historian: patient Exam Limitations: no limitations Patient Subjective Stated Complaint: PT STATES HE HAS HAD ABDOMINAL PAIN X 4 MONTHS. TODAY COMPLAINS OF LEFT SIDED ABDOMINAL AND FLANK PAIN THAT IS CONSTANT. ALSO THIS MORNING PT PASSED A BLACK STOOL THIS MORNING WELL. PT REPORTS HE WAS DX WITH MONO ONE WEEK AGO. Triage Nursing Assessment: PT IS AOX3, AMBULATORY TO COT WITH NO DIFFICULTIES, RESPS ARE EASY AND NON LABORED, SKIN IS PWD, ABD IS SOFT AND TENDER. BOWEL SOUNDS ARE PRESENT AND NORMOACTIVE X4. Physician History: Patient is a 51-year-old male with multiple complaints including abdominal pain for 4 months, pancreatitis, and black stools today, today complains that he is worried because he still has abdominal pain on the left side and he had a black stool this morning. He has been taking Pepto-Bismol for 2 days. He has been worked up by a GI specialist including an upper GI scope twice. He was told he had an ulcer. He took the medicine that was prescribed and does not feel better. He's had a CT scan was told that he does not have kidney stones. He was recently told that he has mononucleosis and an enlarged spleen.His past medical history is significant for COPD, anxiety, and pancreatitis. Timing/Duration: other (4 months) Activities at Onset: none Quality: aching Abdominal Pain Onset Location: LUQ Pain Radiation: back Severity of Pain-Max: mild Severity of Pain-Current: mild Modifying Factors: Improves With: nothing Associated Symptoms: denies symptoms Previous symptoms: same symptoms as today Allergies/Adverse Reactions: No Known Drug Allergies Allergy (Verified 01/07/17 13:05) Home Medications: Clopidogrel Bisulfate 75 mg [PLAVIX 75 MG Tablet] 75 tab PO DAILY [History] PANTOPRAZOLE 40 mg Tablet [Protonix 40MG Tablet] 40 mg PO QPM 09/26/16 [ History] Lipase/Protease/Amylase [Jb Mccall 24,000 Units Capsule] 1 each PO BID 12/03/16 [ History] Montelukast Sodium [Singulair] 10 mg PO DAILY 12/03/16 [History] Hx Tetanus, Diphtheria Vaccination/Date Given: No Hx Influenza Vaccination/Date Given: No Hx Pneumococcal Vaccination/Date Given: No Immunizations Up to Date: Yes - Review of Systems Constitutional: No Fever, No Chills Eyes: No Symptoms Ears, Nose, & Throat: No Symptoms Respiratory: No Cough, No Dyspnea Cardiac: No Chest Pain, No Edema, No Syncope Abdominal/Gastrointestinal: Abdominal Pain Genitourinary Symptoms: No Dysuria Musculoskeletal: No Back Pain, No Neck Pain Skin: No Rash Neurological: No Dizziness, No Focal Weakness, No Sensory Changes Psychological: No Symptoms Endocrine: No Symptoms Hematologic/Lymphatic: No Symptoms Immunological/Allergic: No Symptoms All Other Systems: Reviewed and Negative - Past Medical History Pertinent Past Medical History: Yes Neurological History: No Pertinent History ENT History: No Pertinent History Cardiac History: Hypertension, Other Respiratory History: No Pertinent History Endocrine Medical History: No Pertinent History Musculoskeletal History: No Pertinent History GI Medical History: Ulcer History: No Pertinent History Psycho-Social History: No Pertinent History Male Reproductive Disorders: No Pertinent History Other Medical History: Arterial occlusion leg - Past Surgical History Past Surgical History: Yes Neuro Surgical History: No Pertinent History Cardiac: No Pertinent History Respiratory: No Pertinent History Gastrointestinal: Other Genitourinary: No Pertinent History Musculoskeletal: No Pertinent History Male Surgical History: No Pertinent History Other Surgical History: stent in left leg - Social History Smoking Status: Current every day smoker How long have you smoked: 15 Exposure to second hand smoke: Yes Drug Use: none Patient Lives Alone: Yes - Nursing Vital Signs Nursing Vital Signs: Initial Vital Signs Temperature 98.1 F Temperature Source Oral Pulse Rate 74 Respiratory Rate 18 Blood Pressure [Right Arm] 115/78 Blood Pressure [Left Arm] 163/82 Pain Intensity 6 - Physical Exam General Appearance: no apparent distress, alert Eye Exam: PERRL/EOMI, eyes nml inspection Ears, Nose, Throat Exam: normal ENT inspection, pharynx normal, moist mucous membranes Neck Exam: normal inspection, non-tender, supple, full range of motion Respiratory Exam: normal breath sounds, lungs clear, No respiratory distress Cardiovascular Exam: regular rate/rhythm, normal heart sounds Gastrointestinal/Abdomen Exam: tenderness (LUQ) Rectal Exam: not done Back Exam: normal inspection, normal range of motion, No CVA tenderness, No vertebral tenderness Extremity Exam: normal inspection, normal range of motion, pelvis stable Neurologic Exam: alert, oriented x 3, cooperative, normal mood/affect, nml cerebellar function, sensation nml, No motor deficits Skin Exam: normal color, warm, dry SpO2 Interpretation: normal SpO2: 98 Oxygen Delivery: Room Air - CT Exams Abdomen/Pelvis CT Interpretation: Tele-radiologist Report, Normal Appendix, No appendicitis, Other (mild sigmoid wall thickening with minimal stranding, probably colitis.) Ordered Tests: Active Orders 24 hr Category Date Time Status IV Insertion STAT Care 01/07/17 13:46 Active ABDOMEN AND PELVIS W/0 CONTRAS [CT] Stat Exams 01/07/17 13:47 Taken CBC W DIFF Stat Lab 01/07/17 13:20 Completed CMP Stat Lab 01/07/17 13:20 Completed LIPASE Stat Lab 01/07/17 13:20 Completed Occult Blood,Stool Other Stat Lab 01/07/17 13:48 Ordered TROPONIN Stat Lab 01/07/17 13:20 Completed UA W/RFX UR CULTURE Stat Lab 01/07/17 13:20 Completed Urine Triage Profile Stat Lab 01/07/17 13:20 Completed Medication Summary Discontinued Medications Generic Name Dose Route Start Last Admin Trade Name Freq PRN Reason Stop Dose Admin Acetaminophen 1,000 mg 01/07/17 13:47 01/07/17 14:13 Tylenol Extra Strength 500 Mg PO 01/07/17 13:48 1,000 mg Q4H PRN STA Administration Acetaminophen Confirm 01/07/17 13:53 Tylenol Extra Strength 500 Mg Administered 01/07/17 13:54 Dose 500 mg .ROUTE .STK-MED ONE Acetaminophen Confirm 01/07/17 14:15 Tylenol Extra Strength 500 Mg Administered 01/07/17 14:16 Dose 500 mg .ROUTE .STK-MED ONE Sodium Chloride 1,000 mls @ 999 mls/hr 01/07/17 13:46 01/07/17 14:13 Sodium Chloride 0.9% 1000 Ml IV 01/07/17 14:46 999 mls/hr .Q1H1M STA Administration Sodium Chloride Confirm 01/07/17 13:53 Sodium Chloride 0.9% 1000 Ml Administered 01/07/17 13:54 Dose 1,000 mls @ ud .ROUTE .STK-MED ONE Lab/Rad Data: Laboratory Result Diagrams 01/07/17 13:20 01/07/17 13:20 Laboratory Results 01/07/17 01/07/17 01/07/17 Range/Units 13:20 13:20 13:20 WBC 7.0 (4.0-10.5) K/mm3 RBC 5.08 (4.1-5.6) M/mm3 Hgb 15.6 (12.5-18.0) gm/dl Hct 46.2 (42-50) % MCV 90.9 (78-100) fl MCH 30.7 (26-32) pg MCHC 33.8 (32-36) g/dl RDW 14.0 (11.5-14.0) % Plt Count 249 (150-450) K/mm3 MPV 9.5 (6-9.5) fl Gran % 56.4 (36.0-66.0) % Lymphocytes % 32.2 (24.0-44.0) % Monocytes % 8.2 (0.0-12.0) % Eosinophils % 3.1 (0.00-5.0) % Basophils % 0.1 (0.0-0.4) % Basophils # 0.01 (0-0.4) Sodium 141 (136-145) mEq/L Potassium 3.7 (3.5-5.1) mEq/L Chloride 105 (98-107) mEq/L Carbon Dioxide 22.7 (21-32) mEq/L Anion Gap 17.1 H (5-15) MEQ/L BUN 9 (9-20) mg/dL Creatinine 0.77 (0.55-1.30) mg/dl Estimated GFR > 60 ML/MIN Glucose 97 (70-110) MG/DL Calcium 9.3 (8.5-10.1) mg/dL Total Bilirubin 0.40 (0.2-1.0) mg/dL AST 28 (15-37) U/L ALT 47 (12-78) U/L Alkaline Phosphatase 57 (46-116) U/L Troponin I < 0.017 (0.000-0.056) ng/ml Serum Total Protein 7.7 (6.4-8.2) gm/dL Albumin 4.2 (3.4-5.0) g/dL Lipase 94 (73-393) U/L Ur Collection Type Urine Color (YELLOW) Urine Appearance (CLEAR) Urine pH (5-6) Ur Specific [place] (1.005-1.025) Urine Protein (Negative) Urine Ketones (NEGATIVE) Urine Blood (0-5) Freddie/ul Urine Nitrite (NEGATIVE) Urine Bilirubin (NEGATIVE) Urine Urobilinogen (0-1) mg/dL Ur Leukocyte Esterase (NEGATIVE) Urine Glucose (NEGATIVE) mg/dL Urine Opiates Level NEG. (NEGATIVE) Ur Methadone NEG. (NEGATIVE) Urine Barbiturates NEG. (NEGATIVE) Ur Phencyclidine (PCP) NEG. (NEGATIVE) Urine Amphetamine NEG. (NEGATIVE) U Benzodiazepine Level NEG. (NEGATIVE) Urine Cocaine NEG. (NEGATIVE) Urine Marijuana (THC) NEG. (NEGATIVE) Specimen Received 01/07/17 Range/Units 13:20 WBC (4.0-10.5) K/mm3 RBC (4.1-5.6) M/mm3 Hgb (12.5-18.0) gm/dl Hct (42-50) % MCV (78-100) fl MCH (26-32) pg MCHC (32-36) g/dl RDW (11.5-14.0) % Plt Count (150-450) K/mm3 MPV (6-9.5) fl Gran % (36.0-66.0) % Lymphocytes % (24.0-44.0) % Monocytes % (0.0-12.0) % Eosinophils % (0.00-5.0) % Basophils % (0.0-0.4) % Basophils # (0-0.4) Sodium (136-145) mEq/L Potassium (3.5-5.1) mEq/L Chloride (98-107) mEq/L Carbon Dioxide (21-32) mEq/L Anion Gap (5-15) MEQ/L BUN (9-20) mg/dL Creatinine (0.55-1.30) mg/dl Estimated GFR ML/MIN Glucose (70-110) MG/DL Calcium (8.5-10.1) mg/dL Total Bilirubin (0.2-1.0) mg/dL AST (15-37) U/L ALT (12-78) U/L Alkaline Phosphatase (46-116) U/L Troponin I (0.000-0.056) ng/ml Serum Total Protein (6.4-8.2) gm/dL Albumin (3.4-5.0) g/dL Lipase (73-393) U/L Ur Collection Type VOID Urine Color YELLOW (YELLOW) Urine Appearance CLEAR (CLEAR) Urine pH 5.0 (5-6) Ur Specific [place] 1.010 (1.005-1.025) Urine Protein NEGATIVE (Negative) Urine Ketones NEGATIVE (NEGATIVE) Urine Blood NEGATIVE (0-5) Freddie/ul Urine Nitrite NEGATIVE (NEGATIVE) Urine Bilirubin NEGATIVE (NEGATIVE) Urine Urobilinogen NORMAL (0-1) mg/dL Ur Leukocyte Esterase NEGATIVE (NEGATIVE) Urine Glucose NEGATIVE (NEGATIVE) mg/dL Urine Opiates Level (NEGATIVE) Ur Methadone (NEGATIVE) Urine Barbiturates (NEGATIVE) Ur Phencyclidine (PCP) (NEGATIVE) Urine Amphetamine (NEGATIVE) U Benzodiazepine Level (NEGATIVE) Urine Cocaine (NEGATIVE) Urine Marijuana (THC) (NEGATIVE) Specimen Received 01/07/17 1320 - Progress Progress: improved Counseled pt/family regarding: lab results, diagnosis, need for follow-up, rad results - Departure Time of Disposition: 14:53 Departure Disposition: Home Clinical Impression: Colitis Condition: Stable Critical Care Time: No Additional Instructions: The CT scan of her abdomen and pelvis shows that you have colitis of your colon on the left side of your abdomen. You were given IV fluids and Tylenol in the ER. Take ciprofloxacin 500 mg twice a day for 3 days. Take Tylenol 1000 mg every 6-8 hours as needed for pain. Follow-up with your family doctor on Monday. Prescriptions: Ciprofloxacin [Cipro 500 MG] 1 tab PO BID #6 tablet
[2017-01-07] MEDS ORDERED: Sodium Chloride 0.9% 1000 ML 1,000 ML IV STA (13:46)
[2017-01-07] MEDS ORDERED: TYLENOL EXTRA STRENGTH 500 MG PO STA (13:47)
[2017-01-07 13:52] LABS: BASOPHIL % 0.1 % (0.0-0.4); Eosinophil % 3.1 % (0.00-5.0); Granulocytes % 56.4 % (36.0-66.0); Lymphocytes % 32.2 % (24.0-44.0); Mean Cell Volume 90.9 fl (78-100); Mean Corpuscular Hemoglobin 30.7 pg (26-32); Mean Platelet Volume 9.5 fl (6-9.5); Monocytes % 8.2 % (0.0-12.0); Platelet Count 249 K/mm3 (150-450); Red Blood Count 5.08 M/mm3 (4.1-5.6)
[2017-01-07] MEDS ORDERED: Sodium Chloride 0.9% 1000 ML 1,000 ML ONE (13:53)
[2017-01-07] MEDS ORDERED: TYLENOL EXTRA STRENGTH 500 MG ONE ×2 (13:53→14:15)
[2017-01-07 14:00] LABS: ADD URINE CULTURE? NO (NO); Bilirubin NEGATIVE (NEGATIVE); Blood NEGATIVE Ery/ul (0-5); COMPLETE URINE MICROSCOPIC? NO; Collection Type VOID; Glucose NEGATIVE (NEGATIVE); Leukocyte Esterase NEGATIVE (NEGATIVE)
[2017-01-07 14:05] LABS: ALBUMIN 4.2 g/dL (3.4-5.0); ALKALINE PHOSPHATASE 57 U/L (46-116); ANION GAP 17.1 MEQ/L (5-15); BLOOD UREA NITROGEN 9 mg/dL (9-20); CHLORIDE 105 mEq/L (98-107); Carbon Dioxide 22.7 mEq/L (21-32); Glucose 97 MG/DL (70-110); LIPASE 94 U/L (73-393); Potassium 3.7 mEq/L (3.5-5.1); SGOT/AST 28 U/L (15-37); SGPT/ALT 47 U/L (12-78); SODIUM 141 mEq/L (136-145); Total Protein 7.7 gm/dL (6.4-8.2)
[2017-01-07 14:10] LABS: TROPONIN < 0.017 ng/ml (0.000-0.056)
[2017-01-07 15:09] VITALS: BP 136/76; PULSE 98; O2SAT 97
--- NOTE | 2017-01-07 21:56 | XRAY ---
Indication: Abdominal pain. Black stools. Multiple contiguous axial images obtained through the abdomen and pelvis without contrast as ordered. Comparison: December 30, 2016. Lung bases are essentially clear. Heart is not enlarged. Again small hiatal hernia. Noncontrasted stomach and bowel loops appear nonobstructed. Dense material seen in the distal small bowel and proximal colon presumed ingested medication. Sigmoid colon now demonstrates mild wall thickening with minimal stranding favoring colitis. Appendix remains prominent without periappendiceal stranding. No free fluid/air. Remaining liver, gallbladder, pancreas, spleen, adrenal glands, kidneys, ureters, and bladder appear unremarkable for noncontrast exam. Stable mild aortoiliac calcifications without AAA. Stable left common iliac, external iliac, common femoral artery stent graft. Lack of IV contrast precludes evaluation for stent patency. Osseous structures intact with mild lumbar degenerative changes. Small fatty left inguinal hernia. Impression: 1. Sigmoid bowel wall thickening with minimal stranding favoring colitis. 2. Stable small hiatal hernia and small fatty left inguinal hernia. CTDI 11.92
== END 2017-01-07 15:09 | disposition home or self-care (01) ==
LOC: ED 12:44
DX: K52.9 Noninfective gastroenteritis and colitis, unspecified (principal); R10.9 Unspecified abdominal pain
CPT/HCPCS: 36000; 36415; 74176; 80053; 80307; 81002; 82272; 83690; 84484; 85025; 99283; A9270-GY

== ENCOUNTER 2017-01-08 20:20 | Observation (INO) | payer MEDICARE ==
[2017-01-08] MEDS ORDERED: Hydromorphone 1 mg/ml Ampule IV ONE (20:42)
[2017-01-08] MEDS ORDERED: Phenergan 25 MG INJ IV ONE (20:42)
[2017-01-08] MEDS ORDERED: Levofloxacin 500MG/100ML D5W 500 MG/100 ML BAG IV STA (20:43)
[2017-01-08] MEDS ORDERED: FLAGYL 500 MG IVPB 500 MG/100 ML BAG IV STA (20:43)
[2017-01-08] MEDS ORDERED: Sodium Chloride 0.9% 1000 ML 1,000 ML IV SCH ×2 (20:45→23:04)
--- NOTE | 2017-01-08 20:50 | ERPHSYRPT ---
- History of Present Illness Time Seen by Provider: 01/08/17 20:36 Historian: patient Exam Limitations: no limitations Patient Subjective Stated Complaint: pt states he has been having pain in his abd again today. states he was here yesterday and felt good after starting antibiotics, but is having increased pain today. and increased more after eating approx 30 minutes ago Triage Nursing Assessment: pt awake and alert, answers questions approp. pt ambulatory with steady gait noted. respirations nonlabored with lungs cta. abd soft with some tenderness noted. bowel sounds hyper in all 4 quadrants. Physician History: PT CAME TO [facility] ER YESTERDAY, HAD AN ABDOMINAL/PELVIC CT WHICH SHOWED COLITIS AND WAS DISCHARGED ON CIPRO. PT RETURNS TODAY WITH ABDOMINAL PAIN NOT IMPROVING. PT ALSO C/O A SORE THROAT AND CHILLS TONIGHT. PT DENIES RASH, FEVER, HEADACHE. Allergies/Adverse Reactions: No Known Drug Allergies Allergy (Verified 01/08/17 20:36) Home Medications: Clopidogrel Bisulfate 75 mg [PLAVIX 75 MG Tablet] 75 tab PO DAILY [History] PANTOPRAZOLE 40 mg Tablet [Protonix 40MG Tablet] 40 mg PO QPM 09/26/16 [ History] Lipase/Protease/Amylase [Creon Dr 24,000 Units Capsule] 1 each PO BID 12/03/16 [ History] Montelukast Sodium [Singulair] 10 mg PO DAILY 12/03/16 [History] Hx Tetanus, Diphtheria Vaccination/Date Given: No Hx Influenza Vaccination/Date Given: No Hx Pneumococcal Vaccination/Date Given: No Immunizations Up to Date: No - Review of Systems Constitutional: Chills, No Fever Ears, Nose, & Throat: Throat Pain Abdominal/Gastrointestinal: Abdominal Pain, No Vomiting Skin: No Rash Neurological: No Headache Endocrine: No Excessive Sweating All Other Systems: Reviewed and Negative - Past Medical History Pertinent Past Medical History: Yes Neurological History: No Pertinent History ENT History: No Pertinent History Cardiac History: Hypertension, Other Respiratory History: No Pertinent History Endocrine Medical History: No Pertinent History Musculoskeletal History: No Pertinent History GI Medical History: Ulcer History: No Pertinent History Psycho-Social History: No Pertinent History Male Reproductive Disorders: No Pertinent History Other Medical History: Arterial occlusion leg - Past Surgical History Past Surgical History: Yes Neuro Surgical History: No Pertinent History Cardiac: No Pertinent History Respiratory: No Pertinent History Gastrointestinal: Other Genitourinary: No Pertinent History Musculoskeletal: No Pertinent History Male Surgical History: No Pertinent History Other Surgical History: stent in left leg - Social History Smoking Status: Current every day smoker How long have you smoked: 15 Exposure to second hand smoke: Yes Drug Use: none Patient Lives Alone: Yes - Nursing Vital Signs Nursing Vital Signs: Initial Vital Signs Temperature 97.8 F Temperature Source Oral Pulse Rate 81 Respiratory Rate 18 Blood Pressure [Right Arm] 154/94 Pain Intensity 8 - Physical Exam General Appearance: alert Eye Exam: PERRL/EOMI Ears, Nose, Throat Exam: TMs normal, pharynx normal, moist mucous membranes Neck Exam: normal inspection Respiratory Exam: lungs clear Cardiovascular Exam: normal heart sounds Gastrointestinal/Abdomen Exam: soft, normal bowel sounds, No tenderness, No guarding Back Exam: normal range of motion Extremity Exam: normal inspection, No pedal edema Neurologic Exam: alert, cooperative Skin Exam: warm, dry SpO2 Interpretation: normal SpO2: 100 Oxygen Delivery: Room Air - Course Nursing assessment & vital signs reviewed: Yes Ordered Tests: Active Orders 24 hr Category Date Time Status IV Insertion STAT Care 01/08/17 20:42 Active AMYLASE Stat Lab 01/08/17 21:16 Completed BLOOD CULTURE Stat Lab 01/08/17 21:17 Received CBC W DIFF Stat Lab 01/08/17 21:16 Completed CMP Stat Lab 01/08/17 21:16 Completed LIPASE Stat Lab 01/08/17 21:16 Completed MAG [MAGNESIUM] Stat Lab 01/08/17 21:16 Completed UA W/ MICROSCOPIC Stat Lab 01/08/17 21:16 Completed Medication Summary Generic Name Dose Route Start Last Admin Trade Name Freq PRN Reason Stop Dose Admin Sodium Chloride 1,000 mls @ 100 mls/hr 01/08/17 20:45 01/08/17 21:06 Sodium Chloride 0.9% 1000 Ml IV 02/07/17 20:44 100 mls/hr .Q10H LESLI Administration Discontinued Medications Generic Name Dose Route Start Last Admin Trade Name Freq PRN Reason Stop Dose Admin Hydromorphone HCl 1 mg 01/08/17 20:42 01/08/17 21:05 Hydromorphone 1 Mg/Ml Ampule IV 01/08/17 20:43 1 mg STAT ONE Administration Hydromorphone HCl Confirm 01/08/17 20:57 Hydromorphone 1 Mg/Ml Ampule Administered 01/08/17 20:58 Dose 1 mg .ROUTE .STK-MED ONE Metronidazole 500 mg in 100 mls @ 200 mls/hr 01/08/17 20:43 01/08/17 21:05 Flagyl 500 Mg Ivpb IV 01/08/17 21:12 200 mls/hr STAT STA Administration Levofloxacin/Dextrose 500 mg in 100 mls @ 100 mls/hr 01/08/17 20:43 01/08/17 21:05 Levofloxacin 500mg/100ml D5w IV 01/08/17 21:42 100 mls/hr STAT STA Administration Metronidazole Confirm 01/08/17 20:58 Flagyl 500 Mg Ivpb Administered 01/08/17 20:59 Dose 500 mg in 100 mls @ ud IV .STK-MED ONE Levofloxacin/Dextrose Confirm 01/08/17 20:58 Levofloxacin 500mg/100ml D5w Administered 01/08/17 20:59 Dose 500 mg in 100 mls @ ud IV .STK-MED ONE Promethazine HCl 12.5 mg 01/08/17 20:42 01/08/17 21:05 Phenergan 25 Mg Inj IV 01/08/17 20:43 12.5 mg STAT ONE Administration Promethazine HCl Confirm 01/08/17 20:57 Phenergan 25 Mg Inj Administered 01/08/17 20:58 Dose 25 mg .ROUTE .STK-MED ONE Lab/Rad Data: Laboratory Result Diagrams 01/08/17 21:16 01/08/17 21:16 Laboratory Results 01/08/17 01/08/17 01/08/17 Range/Units 21:16 21:16 21:16 WBC 9.0 (4.0-10.5) K/mm3 RBC 4.68 (4.1-5.6) M/mm3 Hgb 14.5 (12.5-18.0) gm/dl Hct 42.1 (42-50) % MCV 90.0 (78-100) fl MCH 31.0 (26-32) pg MCHC 34.4 (32-36) g/dl RDW 13.6 (11.5-14.0) % Plt Count 282 (150-450) K/mm3 MPV 9.2 (6-9.5) fl Gran % 62.5 (36.0-66.0) % Lymphocytes % 27.5 (24.0-44.0) % Monocytes % 7.0 (0.0-12.0) % Eosinophils % 2.8 (0.00-5.0) % Basophils % 0.2 (0.0-0.4) % Basophils # 0.02 (0-0.4) Sodium 141 (136-145) mEq/L Potassium 3.5 (3.5-5.1) mEq/L Chloride 105 (98-107) mEq/L Carbon Dioxide 25.1 (21-32) mEq/L Anion Gap 14.6 (5-15) MEQ/L BUN 8 L (9-20) mg/dL Creatinine 0.83 (0.55-1.30) mg/dl Estimated GFR > 60 ML/MIN Glucose 87 (70-110) MG/DL Calcium 9.4 (8.5-10.1) mg/dL Magnesium 1.9 (1.8-2.4) mg/dL Total Bilirubin 0.40 (0.2-1.0) mg/dL AST 27 (15-37) U/L ALT 45 (12-78) U/L Alkaline Phosphatase 57 (46-116) U/L Serum Total Protein 7.6 (6.4-8.2) gm/dL Albumin 4.2 (3.4-5.0) g/dL Amylase 78 (25-115) U/L Lipase 109 (73-393) U/L Ur Collection Type Urine Color (YELLOW) Urine Appearance (CLEAR) Urine pH (5-6) Ur Specific [place] (1.005-1.025) Urine Protein (Negative) Urine Ketones (NEGATIVE) Urine Blood (0-5) Freddie/ul Urine Nitrite (NEGATIVE) Urine Bilirubin (NEGATIVE) Urine Urobilinogen (0-1) mg/dL Ur Leukocyte Esterase (NEGATIVE) Urine Microscopic RBC (0-2) /HPF Urine Microscopic WBC (0-5) /HPF Ur Epithelial Cells (FEW) /HPF Urine Bacteria (NEGATIVE) /HPF Urine Mucus (NEGATIVE) /HPF Urine Glucose (NEGATIVE) mg/dL Specimen Received 01/08/17 Range/Units 21:16 WBC (4.0-10.5) K/mm3 RBC (4.1-5.6) M/mm3 Hgb (12.5-18.0) gm/dl Hct (42-50) % MCV (78-100) fl MCH (26-32) pg MCHC (32-36) g/dl RDW (11.5-14.0) % Plt Count (150-450) K/mm3 MPV (6-9.5) fl Gran % (36.0-66.0) % Lymphocytes % (24.0-44.0) % Monocytes % (0.0-12.0) % Eosinophils % (0.00-5.0) % Basophils % (0.0-0.4) % Basophils # (0-0.4) Sodium (136-145) mEq/L Potassium (3.5-5.1) mEq/L Chloride (98-107) mEq/L Carbon Dioxide (21-32) mEq/L Anion Gap (5-15) MEQ/L BUN (9-20) mg/dL Creatinine (0.55-1.30) mg/dl Estimated GFR ML/MIN Glucose (70-110) MG/DL Calcium (8.5-10.1) mg/dL Magnesium (1.8-2.4) mg/dL Total Bilirubin (0.2-1.0) mg/dL AST (15-37) U/L ALT (12-78) U/L Alkaline Phosphatase (46-116) U/L Serum Total Protein (6.4-8.2) gm/dL Albumin (3.4-5.0) g/dL Amylase (25-115) U/L Lipase (73-393) U/L Ur Collection Type CLEAN CATCH Urine Color YELLOW (YELLOW) Urine Appearance CLEAR (CLEAR) Urine pH 5.0 (5-6) Ur Specific [place] 1.020 (1.005-1.025) Urine Protein TRACE (Negative) Urine Ketones MODERATE (NEGATIVE) Urine Blood NEGATIVE (0-5) Freddie/ul Urine Nitrite NEGATIVE (NEGATIVE) Urine Bilirubin NEGATIVE (NEGATIVE) Urine Urobilinogen NORMAL (0-1) mg/dL Ur Leukocyte Esterase NEGATIVE (NEGATIVE) Urine Microscopic RBC 2-5 (0-2) /HPF Urine Microscopic WBC 0-2 (0-5) /HPF Ur Epithelial Cells FEW (FEW) /HPF Urine Bacteria RARE (NEGATIVE) /HPF Urine Mucus MODERATE (NEGATIVE) /HPF Urine Glucose NEGATIVE (NEGATIVE) mg/dL Specimen Received 01/08/172119 - Progress Discussed with : Akbar (OBS - [id number]) - Departure Time of Disposition: 22:05 Departure Disposition: Observation Clinical Impression: COLITIS, HTN Condition: Stable Critical Care Time: No Referrals: TA MARTINEZ MD [Primary Care Provider] -
[2017-01-08] MEDS ORDERED: Phenergan 25 MG INJ ONE (20:57)
[2017-01-08] MEDS ORDERED: Hydromorphone 1 mg/ml Ampule ONE (20:57)
[2017-01-08] MEDS ORDERED: Sodium Chloride 0.9% 1000 ML 1,000 ML ONE (20:58)
[2017-01-08] MEDS ORDERED: Levofloxacin 500MG/100ML D5W 500 MG/100 ML BAG IV ONE (20:58)
[2017-01-08] MEDS ORDERED: FLAGYL 500 MG IVPB 500 MG/100 ML BAG IV ONE (20:58)
[2017-01-08 21:26] LABS: BASOPHIL % 0.2 % (0.0-0.4); Eosinophil % 2.8 % (0.00-5.0); Granulocytes % 62.5 % (36.0-66.0); Lymphocytes % 27.5 % (24.0-44.0); Mean Platelet Volume 9.2 fl (6-9.5); Platelet Count 282 K/mm3 (150-450); Red Blood Count 4.68 M/mm3 (4.1-5.6); Red Cell Distribution Width 13.6 % (11.5-14.0)
[2017-01-08 21:40] LABS: Bacteria RARE /HPF (NEGATIVE); Bilirubin NEGATIVE (NEGATIVE); Blood NEGATIVE Ery/ul (0-5); COMPLETE URINE MICROSCOPIC? YES; Collection Type CLEAN CATCH; Epithelial Cells FEW /HPF (FEW); Glucose NEGATIVE (NEGATIVE); Leukocyte Esterase NEGATIVE (NEGATIVE); Mucus MODERATE /HPF (NEGATIVE); WBC 0-2 /HPF (0-5)
[2017-01-08 21:41] LABS: ADD URINE CULTURE? NO (NO)
[2017-01-08 21:44] LABS: ALBUMIN 4.2 g/dL (3.4-5.0); ALKALINE PHOSPHATASE 57 U/L (46-116); ANION GAP 14.6 MEQ/L (5-15); BLOOD UREA NITROGEN 8 mg/dL (9-20); CHLORIDE 105 mEq/L (98-107); Carbon Dioxide 25.1 mEq/L (21-32); Glucose 87 MG/DL (70-110); LIPASE 109 U/L (73-393); Potassium 3.5 mEq/L (3.5-5.1); SGOT/AST 27 U/L (15-37); SGPT/ALT 45 U/L (12-78); SODIUM 141 mEq/L (136-145); Total Protein 7.6 gm/dL (6.4-8.2)
[2017-01-08] MEDS ORDERED: Phenergan 25 MG INJ IV PRN (23:04)
[2017-01-08] MEDS ORDERED: DILAUDID 2 MG INJECTION IV PRN (23:04)
[2017-01-09] MEDS ORDERED: FLAGYL 500 MG IVPB 500 MG/100 ML BAG IV SCH (06:00)
[2017-01-09 06:27] LABS: BASOPHIL % 0.3 % (0.0-0.4); Eosinophil % 4.1 % (0.00-5.0); Granulocytes % 43.8 % (36.0-66.0); Lymphocytes % 44.3 % (24.0-44.0); Mean Cell Volume 91.2 fl (78-100); Mean Corpuscular Hemoglobin 30.8 pg (26-32); Mean Platelet Volume 9.3 fl (6-9.5); Monocytes % 7.5 % (0.0-12.0); Platelet Count 257 K/mm3 (150-450); Red Blood Count 4.32 M/mm3 (4.1-5.6); Red Cell Distribution Width 13.8 % (11.5-14.0); White Blood Count 6.4 K/mm3 (4.0-10.5)
[2017-01-09 06:41] LABS: ALBUMIN 3.3 g/dL (3.4-5.0); ALKALINE PHOSPHATASE 45 U/L (46-116); ANION GAP 12.6 MEQ/L (5-15); BLOOD UREA NITROGEN 7 mg/dL (9-20); CHLORIDE 109 mEq/L (98-107); Carbon Dioxide 24.9 mEq/L (21-32); Glucose 81 MG/DL (70-110); Potassium 3.7 mEq/L (3.5-5.1); SGOT/AST 23 U/L (15-37); SGPT/ALT 33 U/L (12-78); SODIUM 143 mEq/L (136-145); Total Protein 6.5 gm/dL (6.4-8.2)
--- NOTE | 2017-01-09 08:57 | PCM.HP ---
History of Present Illness - Chief Complaint Chief Complaint: ABD PAIN History of Present Illness: is a 51 year old male.pt states he has been having pain in his abd again today. states he was here yesterday and felt good after starting antibiotics, but is having increased pain today. and increased more after eating approx 30 minutes ago - Review of Systems Constitutional: No Fever, No Chills Eyes: No Symptoms Ears, Nose, & Throat: No Symptoms Respiratory: No Cough, No Short Of Breath Cardiac: No Chest Pain, No Edema, No Syncope Abdominal/Gastrointestinal: Abdominal Pain, Diarrhea, No Nausea, No Vomiting Genitourinary Symptoms: No Dysuria Musculoskeletal: No Back Pain, No Neck Pain Skin: No Rash Neurological: No Dizziness, No Focal Weakness, No Sensory Changes Psychological: No Symptoms Endocrine: No Symptoms Hematologic/Lymphatic: No Symptoms Immunological/Allergic: No Symptoms Medications & Allergies Home Medications: Home Medication List Clopidogrel Bisulfate 75 mg [PLAVIX 75 MG Tablet] 75 tab PO DAILY [History Confirmed 01/08/17] PANTOPRAZOLE 40 mg Tablet [Protonix 40MG Tablet] 40 mg PO QPM 09/26/16 [ History Confirmed 01/08/17] Montelukast Sodium [Singulair] 10 mg PO DAILY 12/03/16 [History Confirmed ] Ciprofloxacin [Cipro 500 MG] 1 tab PO BID #6 tablet 01/07/17 [Rx Confirmed ] Acetaminophen [Tylenol Extra Strength] 500 mg PO DAILY 01/08/17 [History Confirmed 01/08/17] Amlodipine Besylate 5 mg PO DAILY 01/08/17 [History Confirmed 01/08/17] Allergies/Adverse Reactions: Allergies Allergy/AdvReac Type Severity Reaction Status Date / Time No Known Drug Allergies Allergy Verified 01/08/17 20:36 - Past Medical History Past Medical History: Yes Neurological History: No Pertinent History ENT History: No Pertinent History Cardiac History: Hypertension, Other Respiratory History: No Pertinent History Endocrine Medical History: No Pertinent History Musculoskelatal History: No Pertinent History GI Medical History: Ulcer History: No Pertinent History Pyscho-Social History: No Pertinent History Male Reproductive Disorders: No Pertinent History Comment: Arterial occlusion leg - Past Surgical History Past Surgical History: Yes Neuro Surgical History: No Pertinent History Cardiac History: No Pertinent History Respiratory Surgery: No Pertinent History GI Surgical History: Other Genitourinary Surgical Hx: No Pertinent History Musculskeletal Surgical Hx: No Pertinent History Male Surgical History: No Pertinent History Other Surgical History: stent in left leg - Social History Smoking Status: Current every day smoker How long have you smoked: 20 Exposure to second hand smoke: Yes Alcohol: None Drug Use: none - Physical Exam Vital Signs: Vital Signs - 24 hr Temp Pulse Resp BP Pulse Ox 01/09/17 08:00 97.8 F 56 L 18 114/67 92 L 01/09/17 04:00 97.9 F 60 14 115/71 94 L 01/09/17 00:00 57 L 18 131/71 98 01/08/17 23:13 97.8 F 57 L 18 131/71 97 01/08/17 22:48 58 L 16 110/57 95 01/08/17 22:05 100 01/08/17 21:30 69 18 116/79 95 01/08/17 20:27 97.8 F 81 18 154/94 100 General Appearance: no apparent distress, alert Neurologic Exam: alert, oriented x 3, cooperative, normal mood/affect, nml cerebellar function, nml station & gait, sensation nml, No motor deficits Eye Exam: PERRL/EOMI, eyes nml inspection Ears, Nose, Throat Exam: normal ENT inspection, TMs normal, pharynx normal, moist mucous membranes Neck Exam: normal inspection, non-tender, supple, full range of motion Respiratory Exam: normal breath sounds, lungs clear, No respiratory distress Cardiovascular Exam: regular rate/rhythm, normal heart sounds, normal peripheral pulses Gastrointestinal/Abdomen Exam: soft, normal bowel sounds, No tenderness, No mass Back Exam: normal inspection, normal range of motion, No CVA tenderness, No vertebral tenderness Extremity Exam: normal inspection, normal range of motion, pelvis stable Skin Exam: normal color, warm, dry, No rash Lymphatic Exam: No adenopathy Results - Labs Lab/Micro Results: Lab Results-Last 24 Hours 01/09/17 01/09/17 Range/Units 05:40 05:40 WBC 6.4 (4.0-10.5) K/mm3 RBC 4.32 (4.1-5.6) M/mm3 Hgb 13.3 (12.5-18.0) gm/dl Hct 39.4 L (42-50) % MCV 91.2 (78-100) fl MCH 30.8 (26-32) pg MCHC 33.8 (32-36) g/dl RDW 13.8 (11.5-14.0) % Plt Count 257 (150-450) K/mm3 MPV 9.3 (6-9.5) fl Gran % 43.8 (36.0-66.0) % Lymphocytes % 44.3 H (24.0-44.0) % Monocytes % 7.5 (0.0-12.0) % Eosinophils % 4.1 (0.00-5.0) % Basophils % 0.3 (0.0-0.4) % Basophils # 0.02 (0-0.4) Sodium 143 (136-145) mEq/L Potassium 3.7 (3.5-5.1) mEq/L Chloride 109 H (98-107) mEq/L Carbon Dioxide 24.9 (21-32) mEq/L Anion Gap 12.6 (5-15) MEQ/L BUN 7 L (9-20) mg/dL Creatinine 0.70 (0.55-1.30) mg/dl Estimated GFR > 60 ML/MIN Glucose 81 (70-110) MG/DL Calcium 8.5 (8.5-10.1) mg/dL Total Bilirubin 0.30 (0.2-1.0) mg/dL AST 23 (15-37) U/L ALT 33 (12-78) U/L Alkaline Phosphatase 45 L (46-116) U/L Serum Total Protein 6.5 (6.4-8.2) gm/dL Albumin 3.3 L (3.4-5.0) g/dL Assessment/Plan (1) Colitis Current Visit: Yes Status: Acute Code(s): K52.9 - NONINFECTIVE GASTROENTERITIS AND COLITIS, UNSPECIFIED
[2017-01-09] MEDS ORDERED: NORVASC 5 MG PO SCH (10:00)
[2017-01-09] MEDS ORDERED: Singulair 10 MG PO SCH (10:00)
[2017-01-09] MEDS ORDERED: TYLENOL EXTRA STRENGTH 500 MG PO SCH (10:00)
[2017-01-09] MEDS ORDERED: PLAVIX 75 MG Tablet PO SCH (10:00)
[2017-01-09] MEDS ORDERED: PROTONIX 40 MG IV IV SCH (10:00)
[2017-01-09] MEDS ORDERED: PNEUMOVAX 23 IM ONE (10:00)
[2017-01-09 11:49] VITALS: BP 113/60; PULSE 68; O2SAT 96
[2017-01-09] MEDS ORDERED: Levofloxacin 500MG/100ML D5W 500 MG/100 ML BAG IV SCH (22:00)
[2017-01-09] MEDS ORDERED: Protonix 40MG Tablet PO SCH (22:00)
== END 2017-01-09 12:10 | disposition home or self-care (01) ==
LOC: ED 20:20 → MED SURG 22:57
PROVIDERS: ADMIT General Practice; ATTEND General Practice
DX: K52.9 Noninfective gastroenteritis and colitis, unspecified (principal); I10 Essential (primary) hypertension; Z79.899 Other long term (current) drug therapy; Z23 Encounter for immunization
CPT/HCPCS: 36000; 36415; 80053; 81000; 82150; 83690; 83735; 85025; 87040; 90732; 96360; 96361; 96365; 96366; 96368; 96374; 96375; 99285; G0378; J1170; J1956; J2550; A9270-GY

== ENCOUNTER 2017-01-10 05:49 | Day surgery (SDC) | payer MEDICARE ==
[2017-01-10] MEDS ORDERED: Lactated Ringers 1,000 ML IV SCH (07:00)
[2017-01-10] MEDS ORDERED: DIPRIVAN 200 MG/20 ML IV ONE (08:00)
[2017-01-10] MEDS ORDERED: Ketamine HCl 50 MG/ML IJ ONE (08:00)
--- NOTE | 2017-01-10 08:22 | OP ---
SURGERY DATE/TIME: 01/10/2017 0742 PREOPERATIVE DIAGNOSIS: Left lower quadrant abdominal pain. POSTOPERATIVE DIAGNOSIS: Small rectosigmoid polyps otherwise normal colon. PROCEDURE: Colonoscopy with biopsy. SURGEON: Dr. Da Silva. ANESTHESIA: MAC. Medications given by anesthesia department. HISTORY: The patient is a 51 year-old white male presenting now for colonoscopic evaluation. He reports he has been having abdominal pain over the past few months. He had multiple work ups done including upper GI twice and CT scans which were concerning for a partial blockage. The patient was felt the need to have endoscopic evaluation. He was appraised of the risks of the procedure including the risk of perforation, phlebitis, untoward reaction to medication, bleeding and missed lesions. The patient verbalized his understanding and desired to have the procedure performed. DESCRIPTION OF PROCEDURE: The patient was given the medications by the anesthesia department. He had continuous pulse oximetry, ECG monitoring, intermittent blood pressure monitoring, and tidal CO2 monitoring during the examination. He was placed in the left lateral decubitus position. A digital rectal examination was performed and revealed normal anal sphincter tone, no masses and normal prostate. The flexible Olympus pediatric colonoscope was used to intubate the rectum. A view of the colon was developed sequentially to the cecum. Upon insertion and withdrawal, including a retroflex view in the rectum was noted multiple small what appeared to be hyperplastic polyps in the rectosigmoid area and these were biopsied and apparel trimmings sales representative samples to rule out any adenomatous change. The scope was removed from the patient who tolerated the procedure well and was sent back to OP recovery in good condition. The prep was noted to be fair to good.
[2017-01-10 09:41] VITALS: BP 112/67; PULSE 52; O2SAT 96
== END 2017-01-10 09:33 | disposition home or self-care (01) ==
LOC: SDC 05:49
PROVIDERS: ATTEND Family Medicine
PROC: 0DBP8ZX Excision of Rectum, Via Natural or Artificial Opening Endoscopic, Diagnostic (ICD-10-PCS; principal; 2017-01-10)
DX: D12.7 Benign neoplasm of rectosigmoid junction (principal); I10 Essential (primary) hypertension
CPT/HCPCS: 00810; 36415; J2704

== ENCOUNTER 2017-01-14 22:42 | Emergency (ER) | payer MEDICARE ==
--- NOTE | 2017-01-14 22:59 | ERPHSYRPT ---
- History of Present Illness Time Seen by Provider: 01/14/17 22:46 Source: patient Exam Limitations: no limitations Physician History: FOR THE PAST 4 MONTHS PT HAS HAD LEFT SIDED ABDOMINAL, SORE THROAT AND LEFT SIDED CHEST PAIN. 5 DAYS AGO PT HAD A COLONOSCOPY AT [facility] WITH BENIGN POLYP BX X2. FOR THE PAST 4 DAYS PT HAS HAD DIARRHEA. Allergies/Adverse Reactions: No Known Drug Allergies Allergy (Verified 01/15/17 00:15) Home Medications: Clopidogrel Bisulfate 75 mg [PLAVIX 75 MG Tablet] 75 tab PO DAILY [History] PANTOPRAZOLE 40 mg Tablet [Protonix 40MG Tablet] 40 mg PO QPM 09/26/16 [ History] Montelukast Sodium [Singulair] 10 mg PO DAILY 12/03/16 [History] Acetaminophen [Tylenol Extra Strength] 500 mg PO DAILY 01/08/17 [History] Amlodipine Besylate 5 mg PO DAILY 01/08/17 [History] Aspirin 81 mg PO DAILY 01/10/17 [History] Lipase/Protease/Amylase [Creon Dr 6,000 Units Capsule] 1 each PO AC 01/10/17 [ History] Hx Tetanus, Diphtheria Vaccination/Date Given: No Hx Influenza Vaccination/Date Given: No Hx Pneumococcal Vaccination/Date Given: No - Review of Systems Ears, Nose, & Throat: Throat Pain Cardiac: Chest Pain Abdominal/Gastrointestinal: Abdominal Pain, Diarrhea All Other Systems: Reviewed and Negative - Past Medical History Pertinent Past Medical History: Yes Neurological History: No Pertinent History ENT History: No Pertinent History Cardiac History: Hypertension, Other Respiratory History: No Pertinent History Endocrine Medical History: No Pertinent History Musculoskeletal History: No Pertinent History GI Medical History: Pancreatitis, Ulcer, Other History: No Pertinent History Psycho-Social History: No Pertinent History Male Reproductive Disorders: No Pertinent History Other Medical History: Arterial occlusion leg. pt states he has had partial bowel blockage in past. pt states recent dx of pancreatitis - Past Surgical History Past Surgical History: Yes Neuro Surgical History: No Pertinent History Cardiac: No Pertinent History Respiratory: No Pertinent History Gastrointestinal: Other Genitourinary: No Pertinent History Musculoskeletal: No Pertinent History Male Surgical History: No Pertinent History Other Surgical History: stent in left leg - Social History Smoking Status: Current every day smoker How long have you smoked: 20 Exposure to second hand smoke: Yes Drug Use: none Patient Lives Alone: Yes - Nursing Vital Signs Nursing Vital Signs: Initial Vital Signs Temperature 97.8 F Temperature Source Oral Pulse Rate 63 Respiratory Rate 20 Blood Pressure [] 123/68 Pain Intensity 5 - Physical Exam General Appearance: alert, anxiety Eye Exam: PERRL/EOMI Ears, Nose, Throat Exam: pharynx normal, moist mucous membranes, other (CERUMEN OCCLUSION OF BOTH EARS) Neck Exam: normal inspection Respiratory Exam: lungs clear Cardiovascular Exam: normal heart sounds Gastrointestinal/Abdomen Exam: soft, normal bowel sounds, tenderness (MILD LLQ ABDOMINAL TENDERNESS) Back Exam: normal range of motion Extremity Exam: normal inspection, No pedal edema Neurologic Exam: alert, cooperative Skin Exam: warm, dry - Course Nursing assessment & vital signs reviewed: Yes EKG Interpreted by Me: RATE (76), Sinus Rhythm, NORMAL AXIS, NORMAL INTERVALS - Radiology Exams Chest X-ray Interpretation: Interpreted by me, No Pneumonia - CT Exams Abdomen/Pelvis CT Interpretation: Tele-radiologist Report (NO ACUTE FINDINGS) Ordered Tests: Active Orders 24 hr Category Date Time Status EKG-ER Only STAT Care 01/14/17 22:50 Active IV Insertion STAT Care 01/14/17 22:50 Active ABDOMEN AND PELVIS W/0 CONTRAS [CT] Stat Exams 01/14/17 22:51 Taken CHEST 1 VIEW (PORTABLE) Stat Exams 01/14/17 22:51 Taken AMYLASE Stat Lab 01/14/17 23:25 Completed CBC W DIFF Stat Lab 01/14/17 23:25 Completed CMP Stat Lab 01/14/17 23:25 Completed LIPASE Stat Lab 01/14/17 23:25 Completed MAG [MAGNESIUM] Stat Lab 01/14/17 23:25 Completed TROPONIN Stat Lab 01/14/17 23:25 Completed UA W/RFX UR CULTURE Stat Lab 01/14/17 23:15 Completed Medication Summary Generic Name Dose Route Start Last Admin Trade Name Freq PRN Reason Stop Dose Admin Sodium Chloride 1,000 mls @ 100 mls/hr 01/14/17 23:00 01/15/17 00:24 Sodium Chloride 0.9% 1000 Ml IV 02/13/17 22:59 100 mls/hr .Q10H LESLI Administration Discontinued Medications Generic Name Dose Route Start Last Admin Trade Name Freq PRN Reason Stop Dose Admin Sodium Chloride Confirm 01/15/17 00:07 Sodium Chloride 0.9% 500 Ml Administered 01/15/17 00:08 Dose 500 mls @ ud IV .STK-MED ONE Lab/Rad Data: Laboratory Result Diagrams 01/14/17 23:25 01/14/17 23:25 Laboratory Results 01/14/17 01/14/17 01/14/17 Range/Units 23:25 23:25 23:25 WBC 5.4 (4.0-10.5) K/mm3 RBC 4.61 (4.1-5.6) M/mm3 Hgb 14.1 (12.5-18.0) gm/dl Hct 42.2 (42-50) % MCV 91.5 (78-100) fl MCH 30.6 (26-32) pg MCHC 33.4 (32-36) g/dl RDW 13.9 (11.5-14.0) % Plt Count 286 (150-450) K/mm3 MPV 9.4 (6-9.5) fl Gran % 46.4 (36.0-66.0) % Lymphocytes % 37.4 (24.0-44.0) % Monocytes % 11.5 (0.0-12.0) % Eosinophils % 4.5 (0.00-5.0) % Basophils % 0.2 (0.0-0.4) % Basophils # 0.01 (0-0.4) Sodium 142 (136-145) mEq/L Potassium 4.3 (3.5-5.1) mEq/L Chloride 105 (98-107) mEq/L Carbon Dioxide 27.2 (21-32) mEq/L Anion Gap 14.1 (5-15) MEQ/L BUN 9 (9-20) mg/dL Creatinine 0.83 (0.55-1.30) mg/dl Estimated GFR > 60 ML/MIN Glucose 108 (70-110) MG/DL Calcium 9.2 (8.5-10.1) mg/dL Magnesium 2.1 (1.8-2.4) mg/dL Total Bilirubin 0.20 (0.2-1.0) mg/dL AST 14 L (15-37) U/L ALT 12 (12-78) U/L Alkaline Phosphatase 53 (46-116) U/L Troponin I < 0.017 (0.000-0.056) ng/ml Serum Total Protein 7.6 (6.4-8.2) gm/dL Albumin 3.9 (3.4-5.0) g/dL Amylase 67 (25-115) U/L Lipase 115 (73-393) U/L Ur Collection Type Urine Color (YELLOW) Urine Appearance (CLEAR) Urine pH (5-6) Ur Specific [place] (1.005-1.025) Urine Protein (Negative) Urine Ketones (NEGATIVE) Urine Blood (0-5) Freddie/ul Urine Nitrite (NEGATIVE) Urine Bilirubin (NEGATIVE) Urine Urobilinogen (0-1) mg/dL Ur Leukocyte Esterase (NEGATIVE) Urine Glucose (NEGATIVE) mg/dL Specimen Received 01/14/17 Range/Units 23:15 WBC (4.0-10.5) K/mm3 RBC (4.1-5.6) M/mm3 Hgb (12.5-18.0) gm/dl Hct (42-50) % MCV (78-100) fl MCH (26-32) pg MCHC (32-36) g/dl RDW (11.5-14.0) % Plt Count (150-450) K/mm3 MPV (6-9.5) fl Gran % (36.0-66.0) % Lymphocytes % (24.0-44.0) % Monocytes % (0.0-12.0) % Eosinophils % (0.00-5.0) % Basophils % (0.0-0.4) % Basophils # (0-0.4) Sodium (136-145) mEq/L Potassium (3.5-5.1) mEq/L Chloride (98-107) mEq/L Carbon Dioxide (21-32) mEq/L Anion Gap (5-15) MEQ/L BUN (9-20) mg/dL Creatinine (0.55-1.30) mg/dl Estimated GFR ML/MIN Glucose (70-110) MG/DL Calcium (8.5-10.1) mg/dL Magnesium (1.8-2.4) mg/dL Total Bilirubin (0.2-1.0) mg/dL AST (15-37) U/L ALT (12-78) U/L Alkaline Phosphatase (46-116) U/L Troponin I (0.000-0.056) ng/ml Serum Total Protein (6.4-8.2) gm/dL Albumin (3.4-5.0) g/dL Amylase (25-115) U/L Lipase (73-393) U/L Ur Collection Type CLEAN CATCH Urine Color YELLOW (YELLOW) Urine Appearance CLEAR (CLEAR) Urine pH 7.0 (5-6) Ur Specific [place] 1.010 (1.005-1.025) Urine Protein NEGATIVE (Negative) Urine Ketones NEGATIVE (NEGATIVE) Urine Blood NEGATIVE (0-5) Freddie/ul Urine Nitrite NEGATIVE (NEGATIVE) Urine Bilirubin NEGATIVE (NEGATIVE) Urine Urobilinogen NORMAL (0-1) mg/dL Ur Leukocyte Esterase NEGATIVE (NEGATIVE) Urine Glucose NEGATIVE (NEGATIVE) mg/dL Specimen Received 17:2320 - Departure Time of Disposition: 01:26 Departure Disposition: Home Clinical Impression: ABDOMINAL PAIN, CHEST PAIN, ANXIETY, DIARRHEA, HTN Condition: Stable Critical Care Time: No Referrals: TA MARTINEZ MD [Primary Care Provider] - Instructions: Abdominal Pain-Adult, Diarrhea and Traveler's Diarrhea -- Adult, Chest Pain Additional Instructions: FOLLOW UP WITH PRIVATE DOCTOR TOMORROW.
[2017-01-14] MEDS ORDERED: Sodium Chloride 0.9% 1000 ML 1,000 ML IV SCH (23:00)
[2017-01-14 23:34] LABS: BASOPHIL % 0.2 % (0.0-0.4); Eosinophil % 4.5 % (0.00-5.0); Granulocytes % 46.4 % (36.0-66.0); Lymphocytes % 37.4 % (24.0-44.0); Mean Cell Volume 91.5 fl (78-100); Mean Corpuscular Hemoglobin 30.6 pg (26-32); Mean Platelet Volume 9.4 fl (6-9.5); Monocytes % 11.5 % (0.0-12.0); Platelet Count 286 K/mm3 (150-450); Red Blood Count 4.61 M/mm3 (4.1-5.6); Red Cell Distribution Width 13.9 % (11.5-14.0); White Blood Count 5.4 K/mm3 (4.0-10.5)
[2017-01-14 23:36] LABS: ADD URINE CULTURE? NO (NO); Bilirubin NEGATIVE (NEGATIVE); Blood NEGATIVE Ery/ul (0-5); COMPLETE URINE MICROSCOPIC? NO; Collection Type CLEAN CATCH; Glucose NEGATIVE (NEGATIVE); Leukocyte Esterase NEGATIVE (NEGATIVE)
[2017-01-14 23:51] LABS: ALBUMIN 3.9 g/dL (3.4-5.0); ALKALINE PHOSPHATASE 53 U/L (46-116); ANION GAP 14.1 MEQ/L (5-15); BLOOD UREA NITROGEN 9 mg/dL (9-20); CHLORIDE 105 mEq/L (98-107); Carbon Dioxide 27.2 mEq/L (21-32); Glucose 108 MG/DL (70-110); LIPASE 115 U/L (73-393); Potassium 4.3 mEq/L (3.5-5.1); SGOT/AST 14 U/L (15-37); SGPT/ALT 12 U/L (12-78); SODIUM 142 mEq/L (136-145); Total Protein 7.6 gm/dL (6.4-8.2)
[2017-01-14 23:56] LABS: TROPONIN < 0.017 ng/ml (0.000-0.056)
[2017-01-15] MEDS ORDERED: Sodium Chloride 0.9% 500 ML 0 ML IV ONE (00:07)
[2017-01-15] MEDS ORDERED: Sodium Chloride 0.9% 1000 ML 1,000 ML ONE (00:18)
[2017-01-15 00:52] VITALS: O2SAT 98
[2017-01-15] MEDS ORDERED: Zofran 4 MG/2 ML VIAL IV ONE (01:37)
[2017-01-15] MEDS ORDERED: Zofran 4 MG/2 ML VIAL ONE (01:37)
[2017-01-15] MEDS ORDERED: PHENERGAN 25 MG PO ONE (02:05)
[2017-01-15 02:07] VITALS: BP 118/65; PULSE 68
[2017-01-15] MEDS ORDERED: PHENERGAN 25 MG ONE (02:09)
--- NOTE | 2017-01-15 07:31 | XRAY ---
Indication: Left lower quadrant pain. Status post colonoscopy. Multiple contiguous axial images obtained through the abdomen and pelvis without contrast as ordered. Comparison: January 07, 2017. Lung bases are essentially clear. Heart is not enlarged. Again small hiatal hernia. Stomach is distended with food. Noncontrasted stomach and bowel loops appear nonobstructed. Appendix remains prominent without features for acute appendicitis. No free fluid/air. Remaining liver, gallbladder, pancreas, spleen, adrenal glands, kidneys, ureters, and bladder appear unremarkable for noncontrast exam. Stable mild aortoiliac calcifications without AAA. Stable left common iliac, external iliac, common femoral artery stent graft. Lack of IV contrast precludes evaluation for stent patency. Osseous structures intact with mild lumbar degenerative changes. Small fatty left inguinal hernia. Impression: 1. Stable small hiatal hernia and small fatty left inguinal hernia. 2. No new or acute intra-abdominal/pelvic abnormalities on this noncontrast exam. Comment: Preliminary interpretation was made by [facility]. No discrepancy. CTDI 11.27
--- NOTE | 2017-01-15 07:31 | XRAY ---
Indication: Pain. Comparison: December 30, 2016. Portable chest again demonstrates normal heart, lungs, and bony thorax.
== END 2017-01-15 02:29 | disposition home or self-care (01) ==
LOC: ED 22:42
DX: R10.9 Unspecified abdominal pain (principal); R07.89 Other chest pain; F41.9 Anxiety disorder, unspecified; R19.7 Diarrhea, unspecified; I10 Essential (primary) hypertension; Z79.899 Other long term (current) drug therapy
CPT/HCPCS: 36000; 36415; 71010; 74176; 80053; 81002; 82150; 83690; 83735; 84484; 85025; 93005; 96360; 96361; 96374; 99284; 99285; J2405; A9270-GY

== ENCOUNTER 2017-03-28 17:51 | Emergency (ER) | payer MEDICARE ==
--- NOTE | 2017-03-28 18:16 | ERPHSYRPT ---
- History of Present Illness Time Seen by Provider: 03/28/17 18:11 Source: patient Exam Limitations: no limitations Patient Subjective Stated Complaint: PT REPROTS CONCERN THAT HIS WOUND IS INFECTED-HAD BACK SURGERY CAROLYNN REMOVED A WEEK AGO-DENIES FEVER-DENIES DRAINAGE-STATES THAT WOUND ITCHES-PT ALSO CONCERNED ABOUT AREA TO LEFT CHEEK- REPORTS HE THINKS IT IS A BOIL Triage Nursing Assessment: PT PINK WARM ET [id number] EASY ET NONLABORED- WOUND IS WELL APPROXIMATED WITH NO DRAINAGE NOTED Physician History: patient here for wound check, had low back surgery recently with hardware placement, had carolynn removed 1 week ago. has some itching and area feels puffy , no fever, no drainage. has a raised painful area on left cheek that he has been putting drawing salve on. has had some mild drainage. no other concerns other than on ROS he reports frequent burning in his chest, was diagnosed with ulcers recently, he is taking carafate and pepcid but still has some occaisonal gerd. he reports that it improves greatly with a GI cocktail when he comes to ER usually. he denies chest pain, dyspnea, nausea, vomiting or other concerns. Timing/Duration: day(s) Severity: mild Associated Symptoms: heartburn, No nausea, No vomiting, No abdominal pain, No shortness of breath, No diaphoresis, No cough, No chest pain, No fever Allergies/Adverse Reactions: No Known Drug Allergies Allergy (Verified 03/28/17 17:58) Home Medications: Buspirone HCl 5 mg PO BID 01/23/17 [History] Hydrocodone Bit/Acetaminophen [Hydrocodon-Acetaminoph 7.5-325] 1 tab PO UD 01/23 [History] Sucralfate 1 gm [Carafate 1 GM] 1 gm PO BID 01/23/17 [History] Hx Tetanus, Diphtheria Vaccination/Date Given: No Hx Influenza Vaccination/Date Given: No Hx Pneumococcal Vaccination/Date Given: No Immunizations Up to Date: Yes - Review of Systems Constitutional: No Fever, No Chills Respiratory: No Cough, No Dyspnea Cardiac: No Chest Pain, No Edema, No Syncope Abdominal/Gastrointestinal: No Abdominal Pain, No Nausea, No Vomiting, No Diarrhea Skin: Skin Lesions All Other Systems: Reviewed and Negative - Past Medical History Pertinent Past Medical History: Yes Neurological History: No Pertinent History ENT History: No Pertinent History Cardiac History: Hypertension, Other Respiratory History: No Pertinent History Endocrine Medical History: No Pertinent History Musculoskeletal History: No Pertinent History GI Medical History: Pancreatitis, Ulcer, Other History: No Pertinent History Psycho-Social History: No Pertinent History Male Reproductive Disorders: No Pertinent History Other Medical History: Arterial occlusion leg. pt states he has had partial bowel blockage in past. pt states recent dx of pancreatitis - Past Surgical History Past Surgical History: Yes Neuro Surgical History: No Pertinent History Cardiac: No Pertinent History Respiratory: No Pertinent History Gastrointestinal: Other Genitourinary: No Pertinent History Musculoskeletal: No Pertinent History Male Surgical History: No Pertinent History Other Surgical History: stent in left leg - Social History Smoking Status: Current every day smoker How long have you smoked: 20 Exposure to second hand smoke: No Drug Use: none Patient Lives Alone: No - Nursing Vital Signs Nursing Vital Signs: Initial Vital Signs Temperature 98.7 F 03/28/17 17:56 Pulse Rate 98 H 03/28/17 17:56 Respiratory Rate 18 03/28/17 17:56 Blood Pressure 133/89 03/28/17 17:56 O2 Sat by Pulse Oximetry 98 03/28/17 17:56 Pain Scale Pain Intensity 0 - Physical Exam General Appearance: no apparent distress, alert Respiratory Exam: normal breath sounds, lungs clear, No respiratory distress Cardiovascular Exam: regular rate/rhythm, normal heart sounds, normal peripheral pulses Gastrointestinal/Abdomen Exam: soft, normal bowel sounds, No tenderness, No mass Back Exam: other (well healed midline surgical incision over low back, no erythema, no warmth, no drainage) Skin Exam: other (left cheek with raised area, mild erythema.) SpO2: 98 Oxygen Delivery: Room Air Ordered Tests: Active Orders 24 hr Category Date Time Status CULTURE,WOUND Stat Lab 03/28/17 Uncollected - Departure Time of Disposition: 18:15 Departure Disposition: Home Clinical Impression: Abscess, cheek, Presence of surgical incision, GERD (gastroesophageal reflux disease) Condition: Stable Critical Care Time: No Referrals: TA MARTINEZ MD [Primary Care Provider] - Additional Instructions: take bactrim as directed twice daily. place a warm compress on your cheek for 15 minutes three to four times daily. take protonix as directed for acid reflux. see Dr Martinez in 2 days to f/u on wound culture from cheek drainage. return for severe pain, increasing pain, drainage or fever or other new concerns. Prescriptions: Sulfamethoxazole/Trimethoprim [Bactrim Ds Tablet] 1 tab PO BID #14 tablet Pantoprazole Sodium [Protonix] 40 mg PO DAILY #30 tablet.
[2017-03-28 18:23] VITALS: BP 124/88; PULSE 90; O2SAT 97
== END 2017-03-28 18:22 | disposition home or self-care (01) ==
LOC: ED 17:51
DX: L02.01 Cutaneous abscess of face (principal); Z98.890 Other specified postprocedural states; K21.9 Gastro-esophageal reflux disease without esophagitis
CPT/HCPCS: 99283

== ENCOUNTER 2017-06-20 17:41 | Emergency (ER) | payer MEDICARE ==
[2017-06-20] MEDS ORDERED: TORAdol 30 mg Injection IV ONE (18:01)
[2017-06-20] MEDS ORDERED: Sodium Chloride 0.9% 1000 ML 1,000 ML IV STA (18:01)
[2017-06-20] MEDS ORDERED: PROTONIX 40 MG IV IV ONE ×2 (18:01→18:05)
[2017-06-20 18:03] VITALS: BP 142/65; PULSE 97; O2SAT 97
[2017-06-20] MEDS ORDERED: Sodium Chloride 0.9% 1000 ML 1,000 ML ONE (18:05)
[2017-06-20] MEDS ORDERED: TORAdol 30 mg Injection ONE (18:05)
--- NOTE | 2017-06-20 18:06 | ERPHSYRPT ---
<RAUL WATSON J - Last Filed: 06/20/17 19:43> - History of Present Illness Historian: patient Exam Limitations: no limitations Patient Subjective Stated Complaint: pt reports left side abd pain that radiates to the flank and low back. reports he was seen recently by Dr Marsh at [facility] for pancreatitis. states they did a procedure to "numb" the pancreas. reports he was also seen at [facility] for a second opinion and was also diagnosed with pancreatitis. Triage Nursing Assessment: pt is aox3, pupils perrl, resps easy and non labored , radial pulses strong and equal, abd is soft and distended - bowel sounds present and normoactivex4. skin is pink warm dry. pain to the LLQ that radiates to the flank and lower back. Hx Tetanus, Diphtheria Vaccination/Date Given: Yes Hx Influenza Vaccination/Date Given: No Hx Pneumococcal Vaccination/Date Given: No <SHAYY LOPEZ - Last Filed: 06/21/17 10:28> - History of Present Illness Time Seen by Provider: 06/20/17 18:03 Physician History: mild to mod left flank pain ache today, rad to back, hx pancreatitis, lumbar surgery 3 months ago, no fever, no NVD, no blood in stool (SHAYY LOPEZ) Allergies/Adverse Reactions: No Known Drug Allergies Allergy (Verified 06/20/17 18:03) Home Medications: Unobtainable [Unobtainable] 06/20/17 [History] - Review of Systems Constitutional: No Fever Eyes: No Symptoms Ears, Nose, & Throat: No Symptoms Respiratory: No Symptoms Cardiac: No Symptoms Abdominal/Gastrointestinal: Abdominal Pain, No Vomiting, No Diarrhea, No Hematochezia Musculoskeletal: No Back Pain, No Neck Pain Skin: No Rash Neurological: No Dizziness Psychological: No Symptoms <SHAYY LOPEZ - Last Filed: 06/21/17 10:28> - Past Medical History Pertinent Past Medical History: Yes Neurological History: No Pertinent History ENT History: No Pertinent History Cardiac History: Hypertension, Other Respiratory History: No Pertinent History Endocrine Medical History: No Pertinent History Musculoskeletal History: No Pertinent History GI Medical History: Pancreatitis, Ulcer, Other History: No Pertinent History Psycho-Social History: No Pertinent History Male Reproductive Disorders: No Pertinent History Other Medical History: Arterial occlusion leg. pt states he has had partial bowel blockage in past. pt states recent dx of pancreatitis, degenerative discs - Past Surgical History Past Surgical History: Yes Neuro Surgical History: No Pertinent History Cardiac: No Pertinent History Respiratory: No Pertinent History Gastrointestinal: Other Genitourinary: No Pertinent History Musculoskeletal: No Pertinent History Male Surgical History: No Pertinent History Other Surgical History: stent in left leg. back surgery 2017 - Social History Smoking Status: Current every day smoker How long have you smoked: 20 Exposure to second hand smoke: No Drug Use: none Patient Lives Alone: No <SHAYY LOPEZ - Last Filed: 06/21/17 10:28> - Physical Exam General Appearance: no apparent distress Eye Exam: PERRL/EOMI Ears, Nose, Throat Exam: moist mucous membranes Neck Exam: normal inspection Respiratory Exam: normal breath sounds Cardiovascular Exam: regular rate/rhythm Gastrointestinal/Abdomen Exam: tenderness, No distention, No rebound Back Exam: CVA tenderness, No vertebral tenderness Extremity Exam: normal range of motion Neurologic Exam: alert, oriented x 3, cooperative Skin Exam: warm, dry SpO2 Interpretation: normal SpO2: 97 Oxygen Delivery: Room Air <SHAYY LOPEZ - Last Filed: 06/21/17 10:28> - Nursing Vital Signs Nursing Vital Signs: Initial Vital Signs Temperature 98.3 F 06/20/17 17:49 Pulse Rate 97 H 06/20/17 17:49 Respiratory Rate 18 06/20/17 17:49 Blood Pressure 142/65 06/20/17 17:49 O2 Sat by Pulse Oximetry 97 06/20/17 17:49 Pain Scale Pain Intensity 6 - Course Nursing assessment & vital signs reviewed: Yes EKG Interpreted by Me: RATE (78), Sinus Rhythm, NORMAL AXIS, NORMAL INTERVALS, NORMAL QRS, NORMAL ST-T - CT Exams abd/pelvis CT Interpretation: Tele-radiologist Report (questionable small bladder mass, no ureteral stone, no acute) <RAUL WATSON - Last Filed: 06/20/17 19:43> Ordered Tests: Active Orders 24 hr Category Date Time Status EKG-ER Only STAT Care 06/20/17 18:01 Active IV Insertion STAT Care 06/20/17 18:01 Active ABDOMEN AND PELVIS W/0 CONTRAS [CT] Stat Exams 06/20/17 18:01 Completed BLOOD CULTURE Stat Lab 06/20/17 18:55 Received CBC W DIFF Stat Lab 06/20/17 18:00 Completed CMP Stat Lab 06/20/17 18:00 Completed LIPASE Stat Lab 06/20/17 18:00 Completed Lactic Acid Stat Lab 06/20/17 18:15 Completed PROTIME WITH INR Stat Lab 06/20/17 18:00 Completed TROPONIN Q3H Lab 06/20/17 18:00 Completed UA W/RFX UR CULTURE Stat Lab 06/20/17 18:00 Completed Urine Triage Profile Stat Lab 06/20/17 18:00 Completed Medication Summary Discontinued Medications Generic Name Dose Route Start Last Admin Trade Name Freq PRN Reason Stop Dose Admin Sodium Chloride 1,000 mls @ 999 mls/hr 06/20/17 18:01 06/20/17 18:12 Sodium Chloride 0.9% 1000 Ml IV 06/20/17 19:01 999 mls/hr .Q1H1M STA Administration Sodium Chloride Confirm 06/20/17 18:05 Sodium Chloride 0.9% 1000 Ml Administered 06/20/17 18:06 Dose 1,000 mls @ ud .ROUTE .STK-MED ONE Ketorolac Tromethamine 30 mg 06/20/17 18:01 06/20/17 18:12 Toradol 30 Mg Injection IV 06/20/17 18:02 30 mg STAT ONE Administration Ketorolac Tromethamine Confirm 06/20/17 18:05 Toradol 30 Mg Injection Administered 06/20/17 18:06 Dose 30 mg .ROUTE .STK-MED ONE Pantoprazole Sodium 40 mg 06/20/17 18:01 06/20/17 18:12 Protonix 40 Mg Iv IV 06/20/17 18:02 40 mg STAT ONE Administration Pantoprazole Sodium Confirm 06/20/17 18:05 Protonix 40 Mg Iv Administered 06/20/17 18:06 Dose 40 mg IV .STK-MED ONE Lab/Rad Data: Laboratory Result Diagrams 06/20/17 18:00 06/20/17 18:00 Laboratory Results 06/20/17 06/20/17 06/20/17 Range/Units 18:15 18:00 18:00 WBC (4.0-10.5) K/mm3 RBC (4.1-5.6) M/mm3 Hgb (12.5-18.0) gm/dl Hct (42-50) % MCV (78-100) fl MCH (26-32) pg MCHC (32-36) g/dl RDW (11.5-14.0) % Plt Count (150-450) K/mm3 MPV (6-9.5) fl Gran % (36.0-66.0) % Lymphocytes % (24.0-44.0) % Monocytes % (0.0-12.0) % Eosinophils % (0.00-5.0) % Basophils % (0.0-0.4) % Basophils # (0-0.4) INR 0.98 (0.8-3.0) Sodium (136-145) mEq/L Potassium (3.5-5.1) mEq/L Chloride (98-107) mEq/L Carbon Dioxide (21-32) mEq/L Anion Gap (5-15) MEQ/L BUN (9-20) mg/dL Creatinine (0.55-1.30) mg/dl Estimated GFR ML/MIN Glucose (70-110) MG/DL Lactic Acid 1.0 (0.4-2.0) Calcium (8.5-10.1) mg/dL Total Bilirubin (0.2-1.0) mg/dL AST (15-37) U/L ALT (12-78) U/L Alkaline Phosphatase (46-116) U/L Troponin I < 0.017 (0.000-0.056) ng/ml Serum Total Protein (6.4-8.2) gm/dL Albumin (3.4-5.0) g/dL Lipase (73-393) U/L Ur Collection Type Urine Color (YELLOW) Urine Appearance (CLEAR) Urine pH (5-6) Ur Specific Webb (1.005-1.025) Urine Protein (Negative) Urine Ketones (NEGATIVE) Urine Blood (0-5) Freddie/ul Urine Nitrite (NEGATIVE) Urine Bilirubin (NEGATIVE) Urine Urobilinogen (0-1) mg/dL Ur Leukocyte Esterase (NEGATIVE) Urine Culture Reflexed (NO) Urine Glucose (NEGATIVE) mg/dL Urine Opiates Level (NEGATIVE) Ur Methadone (NEGATIVE) Urine Barbiturates (NEGATIVE) Ur Phencyclidine (PCP) (NEGATIVE) Urine Amphetamine (NEGATIVE) U Benzodiazepine Level (NEGATIVE) Urine Cocaine (NEGATIVE) Urine Marijuana (THC) (NEGATIVE) Specimen Received 06/20/17 06/20/17 06/20/17 Range/Units 18:00 18:00 18:00 WBC 10.0 (4.0-10.5) K/mm3 RBC 5.14 (4.1-5.6) M/mm3 Hgb 15.0 (12.5-18.0) gm/dl Hct 45.6 (42-50) % MCV 88.7 (78-100) fl MCH 29.2 (26-32) pg MCHC 32.9 (32-36) g/dl RDW 14.8 H (11.5-14.0) % Plt Count 297 (150-450) K/mm3 MPV 9.2 (6-9.5) fl Gran % 60.1 (36.0-66.0) % Lymphocytes % 29.8 (24.0-44.0) % Monocytes % 7.4 (0.0-12.0) % Eosinophils % 2.6 (0.00-5.0) % Basophils % 0.1 (0.0-0.4) % Basophils # 0.01 (0-0.4) INR (0.8-3.0) Sodium 143 (136-145) mEq/L Potassium 3.5 (3.5-5.1) mEq/L Chloride 103 (98-107) mEq/L Carbon Dioxide 26.7 (21-32) mEq/L Anion Gap 16.5 H (5-15) MEQ/L BUN 14 (9-20) mg/dL Creatinine 0.87 (0.55-1.30) mg/dl Estimated GFR > 60 ML/MIN Glucose 93 (70-110) MG/DL Lactic Acid (0.4-2.0) Calcium 9.1 (8.5-10.1) mg/dL Total Bilirubin 0.20 (0.2-1.0) mg/dL AST 20 (15-37) U/L ALT 29 (12-78) U/L Alkaline Phosphatase 80 (46-116) U/L Troponin I (0.000-0.056) ng/ml Serum Total Protein 8.0 (6.4-8.2) gm/dL Albumin 3.9 (3.4-5.0) g/dL Lipase 97 (73-393) U/L Ur Collection Type Urine Color (YELLOW) Urine Appearance (CLEAR) Urine pH (5-6) Ur Specific Webb (1.005-1.025) Urine Protein (Negative) Urine Ketones (NEGATIVE) Urine Blood (0-5) Freddie/ul Urine Nitrite (NEGATIVE) Urine Bilirubin (NEGATIVE) Urine Urobilinogen (0-1) mg/dL Ur Leukocyte Esterase (NEGATIVE) Urine Culture Reflexed (NO) Urine Glucose (NEGATIVE) mg/dL Urine Opiates Level NEG. (NEGATIVE) Ur Methadone NEG. (NEGATIVE) Urine Barbiturates NEG. (NEGATIVE) Ur Phencyclidine (PCP) NEG. (NEGATIVE) Urine Amphetamine NEG. (NEGATIVE) U Benzodiazepine Level NEG. (NEGATIVE) Urine Cocaine NEG. (NEGATIVE) Urine Marijuana (THC) NEG. (NEGATIVE) Specimen Received 06/20/17 Range/Units 18:00 WBC (4.0-10.5) K/mm3 RBC (4.1-5.6) M/mm3 Hgb (12.5-18.0) gm/dl Hct (42-50) % MCV (78-100) fl MCH (26-32) pg MCHC (32-36) g/dl RDW (11.5-14.0) % Plt Count (150-450) K/mm3 MPV (6-9.5) fl Gran % (36.0-66.0) % Lymphocytes % (24.0-44.0) % Monocytes % (0.0-12.0) % Eosinophils % (0.00-5.0) % Basophils % (0.0-0.4) % Basophils # (0-0.4) INR (0.8-3.0) Sodium (136-145) mEq/L Potassium (3.5-5.1) mEq/L Chloride (98-107) mEq/L Carbon Dioxide (21-32) mEq/L Anion Gap (5-15) MEQ/L BUN (9-20) mg/dL Creatinine (0.55-1.30) mg/dl Estimated GFR ML/MIN Glucose (70-110) MG/DL Lactic Acid (0.4-2.0) Calcium (8.5-10.1) mg/dL Total Bilirubin (0.2-1.0) mg/dL AST (15-37) U/L ALT (12-78) U/L Alkaline Phosphatase (46-116) U/L Troponin I (0.000-0.056) ng/ml Serum Total Protein (6.4-8.2) gm/dL Albumin (3.4-5.0) g/dL Lipase (73-393) U/L Ur Collection Type CCMS Urine Color YELLOW (YELLOW) Urine Appearance CLEAR (CLEAR) Urine pH 7.0 (5-6) Ur Specific Webb 1.010 (1.005-1.025) Urine Protein NEGATIVE (Negative) Urine Ketones NEGATIVE (NEGATIVE) Urine Blood NEGATIVE (0-5) Freddie/ul Urine Nitrite NEGATIVE (NEGATIVE) Urine Bilirubin NEGATIVE (NEGATIVE) Urine Urobilinogen NORMAL (0-1) mg/dL Ur Leukocyte Esterase NEGATIVE (NEGATIVE) Urine Culture Reflexed NO (NO) Urine Glucose NEGATIVE (NEGATIVE) mg/dL Urine Opiates Level (NEGATIVE) Ur Methadone (NEGATIVE) Urine Barbiturates (NEGATIVE) Ur Phencyclidine (PCP) (NEGATIVE) Urine Amphetamine (NEGATIVE) U Benzodiazepine Level (NEGATIVE) Urine Cocaine (NEGATIVE) Urine Marijuana (THC) (NEGATIVE) Specimen Received 06-20-17 1830 - Progress Counseled pt/family regarding: lab results, diagnosis, need for follow-up, rad results <RAUL WATSON - Last Filed: 06/20/17 19:43> <SHAYY LOPEZ - Last Filed: 06/21/17 10:28> - Progress Progress Note: 06/20/17 19:44 The patient was initially seen per Dr Lopez. He has hx of pain in left side for quite some time. He has seen IU X 2. He saw Dr Maximo ENGLAND and had scopes and a nerve block without relief. He has continued pain for the past month in the left side of the abd. Normal bowels and bladder. No fever or chills. No cough or shortness of breath. PE: Awake, alert, stable. Chest clear. Cor reg. Abd soft with mild discomfort left abdomen. No mass or guarding. CT and labs reviewed with pt. He feels better after meds. Advised he see Dr Martinez to arrange urology follow up to assess for bladder mass or cancer. Advised he call Dr Marsh tomorrow with report. Will release. (RAUL WATSON) 06/20/17 18:[address] Watson at 19:00 (SHAYY LOPEZ) - Departure Time of Disposition: 19:48 Departure Disposition: Home Critical Care Time: No <WATSONRAUL - Last Filed: 06/20/17 19:43> - Departure Critical Care Time: No <SHAYY LOPEZ - Last Filed: 06/21/17 10:28> - Departure Clinical Impression: Abdominal pain, chronic, left lower quadrant, Bladder mass Condition: Stable Referrals: TA MARTINEZ MD [Primary Care Provider] - Instructions: Abdominal Pain-Adult Additional Instructions: ABDOMINAL PAIN 1. There are several different causes for abdominal pain, some of which may not be able to be identified on initial examination. 2. The important thing to remember is that bodily functions can change in a short period of time. If you notice any of the following symptoms, return to the emergency department or consult your doctor immediately: A. Worsening pain or no improvement in the next 12 hours. B. Increasing, severe abdominal pain C. Blood in stool D. Black stools E. Persistent vomiting F. Fever or chills or other symptoms Call Dr Marsh tomorrow with report. Follow up with Dr Martinez and a urologist to check bladder.
[2017-06-20 18:26] LABS: BASOPHIL % 0.1 % (0.0-0.4); Eosinophil % 2.6 % (0.00-5.0); Granulocytes % 60.1 % (36.0-66.0); Lymphocytes % 29.8 % (24.0-44.0); Mean Cell Volume 88.7 fl (78-100); Mean Corpuscular Hemoglobin 29.2 pg (26-32); Mean Platelet Volume 9.2 fl (6-9.5); Monocytes % 7.4 % (0.0-12.0); Platelet Count 297 K/mm3 (150-450); Red Blood Count 5.14 M/mm3 (4.1-5.6); Red Cell Distribution Width 14.8 % (11.5-14.0)
[2017-06-20 18:37] LABS: ADD URINE CULTURE? NO (NO); Bilirubin NEGATIVE (NEGATIVE); Blood NEGATIVE Ery/ul (0-5); COMPLETE URINE MICROSCOPIC? NO; Collection Type CCMS; Glucose NEGATIVE (NEGATIVE); Leukocyte Esterase NEGATIVE (NEGATIVE)
[2017-06-20 18:42] LABS: INR 0.98 (0.8-3.0); PROTIME 10.9 SECONDS (8.83-12.87)
[2017-06-20 18:57] LABS: ALBUMIN 3.9 g/dL (3.4-5.0); ALKALINE PHOSPHATASE 80 U/L (46-116); ANION GAP 16.5 MEQ/L (5-15); BLOOD UREA NITROGEN 14 mg/dL (9-20); CHLORIDE 103 mEq/L (98-107); Carbon Dioxide 26.7 mEq/L (21-32); Glucose 93 MG/DL (70-110); LIPASE 97 U/L (73-393); Potassium 3.5 mEq/L (3.5-5.1); SGOT/AST 20 U/L (15-37); SGPT/ALT 29 U/L (12-78); SODIUM 143 mEq/L (136-145)
--- NOTE | 2017-06-21 09:04 | XRAY ---
Indication: Left flank pain. Multiple contiguous axial images obtained through the abdomen and pelvis without contrast as ordered. Comparison: January 14, 2017. Lung bases remaining clear. Heart is not enlarged. Stable small hiatal hernia. Noncontrasted stomach and bowel loops again appears nonobstructed. Appendix remains prominent without features for acute appendicitis. No free fluid/air. Stable nonobstructing punctate right renal calculus. Remaining liver, gallbladder, pancreas, spleen, adrenal glands, kidneys, ureters, and bladder appear unremarkable for noncontrast exam. Stable mild aortoiliac calcifications without AAA. Stable left common iliac, external iliac, common femoral artery stent graft. Lack of IV contrast precludes evaluation for stent patency. Osseous structures intact with mild lumbar degenerative changes. Small fatty left inguinal hernia. Impression: 1. Stable small hiatal hernia, nonobstructing right renal micro-calculus, and small fatty left inguinal hernia. 2. No new or acute intra-abdominal/pelvic abnormalities on this noncontrast exam. Comment: Preliminary interpretation was made by [facility]. No discrepancy. CTDI 14.29
== END 2017-06-20 19:58 | disposition home or self-care (01) ==
LOC: ED 17:41
DX: R10.32 Left lower quadrant pain (principal); N32.9 Bladder disorder, unspecified; K86.1 Other chronic pancreatitis; M54.5 Low back pain
CPT/HCPCS: 36000; 36415; 74176; 80053; 80307; 81002; 83605; 83690; 84484; 85025; 85610; 87040; 93005; 96360; 96374; 96375; 99284; J1885

== ENCOUNTER 2018-11-27 20:51 | Emergency (ER) | payer MEDICARE ==
[2018-11-27] MEDS ORDERED: Sodium Chloride 0.9% 1000 ML 1,000 ML IV STA (21:15)
--- NOTE | 2018-11-27 21:22 | ERPHSYRPT ---
- History of Present Illness Time Seen by Provider: 11/27/18 21:19 Source: patient Exam Limitations: no limitations Patient Subjective Stated Complaint: pt reports approx 1930 tonight he was mowing and had to lift on his mower, reports soon after that his left leg began to experience numbness and tingling. 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 states he also has stents to the left groin. Triage Nursing Assessment: pt is aox3, pupils perrl, afebrile, resps easy and non labored, radial pulses strong and equal, cap refill < 3, pt sensation intact to BLE, pedal pulses strong and equal, ROM normal, skin pink warm dry. Physician History: 53-year-old white male arrives with complaint of pain and paresthesias to his left lower extremity symptoms since 1729 today. According to patient he was mowing his lawn to pull up on the molar and then he started she experiencing pain on the left lower leg described as a sharp shooting pain he has some paresthesia. The patient is not having problems moving his leg he is able to move all his toes past medical history includes pancreatitis, high blood pressure, ulcers, arterial occlusion left leg, partial bowel obstruction, history of pancreatitis , degenerative disc disease past surgical history includes a stent in the left leg and back surgery Timing/Duration: today Severity: moderate Modifying Factors: Improves With: nothing Associated Symptoms: other (pain in paresthesia or left lower extremity), No nausea, No vomiting, No abdominal pain, No shortness of breath, No heartburn, No diaphoresis, No cough, No chills, No chest pain, No fever, No headaches, No loss of appetite, No malaise, No rash, No syncope, No seizure, No weakness Allergies/Adverse Reactions: No Known Drug Allergies Allergy (Verified 11/27/18 21:10) Home Medications: Aspirin EC 81 mg [Ecotrin 81 mg] 81 mg PO DAILY 11/27/18 [History] Buspirone HCl 5 mg [Buspar 5 mg] 5 mg PO BID 11/27/18 [History] Clopidogrel Bisulfate 75 mg [PLAVIX 75 MG Tablet] 75 mg PO DAILY 11/27/18 [History] Cyclobenzaprine HCl 10 mg [Cyclobenzaprine 10 MG] 10 mg PO TID 11/27/18 [ History] Duloxetine HCl 60 mg PO BID 11/27/18 [History] Fluticasone Propionate [Flonase NASAL] 16 gm NS DAILY 11/27/18 [History] Gabapentin 100 mg PO TID 11/27/18 [History] Lipase/Protease/Amylase [Jb Dr 6,000 Units Capsule] 1 each PO TID 11/27/18 [ History] Montelukast Sodium 10 mg [Singulair 10 MG] 10 mg PO QPM 11/27/18 [History] Hx Tetanus, Diphtheria Vaccination/Date Given: Yes Hx Influenza Vaccination/Date Given: Yes Hx Pneumococcal Vaccination/Date Given: No Immunizations Up to Date: Yes - Review of Systems Constitutional: No Fever, No Chills Eyes: No Symptoms Ears, Nose, & Throat: No Symptoms Respiratory: No Cough, No Dyspnea Cardiac: No Chest Pain, No Edema, No Syncope Abdominal/Gastrointestinal: No Abdominal Pain, No Nausea, No Vomiting, No Diarrhea Genitourinary Symptoms: No Dysuria Musculoskeletal: Injury (lifted on a lawnmower and felt pain and paresthesia left lower extremity), Other (pain and paresthesia left lower extremity) Skin: No Rash Neurological: No Dizziness, No Focal Weakness, No Sensory Changes Psychological: No Symptoms Endocrine: No Symptoms All Other Systems: Reviewed and Negative - Past Medical History Pertinent Past Medical History: Yes Neurological History: No Pertinent History ENT History: No Pertinent History Cardiac History: Hypertension, Other Respiratory History: No Pertinent History Endocrine Medical History: No Pertinent History Musculoskeletal History: No Pertinent History GI Medical History: Pancreatitis, Ulcer, Other History: No Pertinent History Psycho-Social History: No Pertinent History Male Reproductive Disorders: No Pertinent History Other Medical History: Arterial occlusion leg. pt states he has had partial bowel blockage in past. pt states recent dx of pancreatitis, degenerative discs - Past Surgical History Past Surgical History: Yes Neuro Surgical History: No Pertinent History Cardiac: No Pertinent History Respiratory: No Pertinent History Gastrointestinal: Other Genitourinary: No Pertinent History Musculoskeletal: No Pertinent History Male Surgical History: No Pertinent History Other Surgical History: stent in left leg. back surgery 2017 - Social History Smoking Status: Former smoker How long have you smoked: 20 Exposure to second hand smoke: No Drug Use: none Patient Lives Alone: No - Nursing Vital Signs Nursing Vital Signs: Initial Vital Signs Temperature 99 F 11/27/18 20:52 Pulse Rate 109 H 11/27/18 20:52 Respiratory Rate 18 11/27/18 20:52 Blood Pressure 126/94 11/27/18 20:52 O2 Sat by Pulse Oximetry 96 11/27/18 20:52 Pain Scale Pain Intensity 8 - Physical Exam General Appearance: no apparent distress, alert Eye Exam: PERRL/EOMI, eyes nml inspection Ears, Nose, Throat Exam: normal ENT inspection, TMs normal, pharynx normal, moist mucous membranes Neck Exam: normal inspection, non-tender, supple, full range of motion Respiratory Exam: normal breath sounds, lungs clear, No respiratory distress Cardiovascular Exam: regular rate/rhythm, normal heart sounds, normal peripheral pulses, other (left foot mildly cool , pulses dp pt positive with palpation and doppler) Gastrointestinal/Abdomen Exam: soft, normal bowel sounds, No tenderness, No mass Back Exam: normal inspection, normal range of motion, No CVA tenderness, No vertebral tenderness Extremity Exam: normal inspection, normal range of motion, pelvis stable Neurologic Exam: alert ([place] later,), oriented x 3, cooperative, normal mood/ affect, nml cerebellar function, nml station & gait, sensation nml, No motor deficits Skin Exam: normal color SpO2 Interpretation: normal (96%) SpO2: 96 - Course Nursing assessment & vital signs reviewed: Yes - Radiology Exams L-Spine X-ray Interpretation: Interpreted by me (x-ray lumbar spine: Impression: Hardware in place, stent in place, no acute fractures or subluxation) - Radiology Ultrasound Exam Arterial Lower Extremity Ultrasound: Other (discussed with chief radiology: Decreased arterial flow left lower extremity) Venous Lower Extremity Ultrasound: Other (discussed with chief radiology no DVT left lower extremity) Ordered Tests: Active Orders 24 hr Category Date Time Status IV Insertion STAT Care 11/27/18 21:14 Active LUMBAR LIMITED (2 OR 3 VIEWS) Stat Exams 11/27/18 21:18 Taken AMYLASE Stat Lab 11/27/18 22:00 Completed CBC W DIFF Stat Lab 11/27/18 22:00 Completed CMP Stat Lab 11/27/18 22:00 Completed D-DIMER QUANTITATION Stat Lab 11/27/18 22:00 Completed LIPASE Stat Lab 11/27/18 22:00 Completed PROTIME WITH INR Stat Lab 11/27/18 22:00 Completed PTT Stat Lab 11/27/18 22:00 Completed UA W/RFX UR CULTURE Stat Lab 11/27/18 23:00 Completed Urine Triage Profile Stat Lab 11/27/18 23:00 Completed Medication Summary Discontinued Medications Generic Name Dose Route Start Last Admin Trade Name Hermelindo PRN Reason Stop Dose Admin Fentanyl Citrate 50 mcg 11/27/18 22:14 11/27/18 22:19 Sublimaze 100 Mcg/2 Ml IV 11/27/18 22:15 50 mcg STAT ONE Administration Fentanyl Citrate Confirm 11/27/18 22:18 Sublimaze 100 Mcg/2 Ml Administered 11/27/18 22:19 Dose 100 mcg .ROUTE .STK-MED ONE Fentanyl Citrate 75 mcg 11/28/18 00:01 11/28/18 00:08 Sublimaze 100 Mcg/2 Ml IV 11/28/18 00:02 75 mcg STAT ONE Administration Fentanyl Citrate Confirm 11/28/18 00:04 Sublimaze 100 Mcg/2 Ml Administered 11/28/18 00:05 Dose 100 mcg .ROUTE .STK-MED ONE Sodium Chloride 1,000 mls @ 999 mls/hr 11/27/18 21:15 11/27/18 22:47 Sodium Chloride 0.9% 1000 Ml IV 11/27/18 22:15 Infused .Q1H1M STA Infusion Sodium Chloride Confirm 11/27/18 21:37 Sodium Chloride 0.9% 1000 Ml Administered 11/27/18 21:38 Dose 1,000 mls @ ud .ROUTE .STK-MED ONE Lab/Rad Data: Laboratory Result Diagrams 11/27/18 22:00 11/27/18 22:00 Laboratory Results 11/27/18 11/27/18 11/27/18 Range/Units 23:00 23:00 22:00 WBC (4.0-10.5) K/mm3 RBC (4.1-5.6) M/mm3 Hgb (12.5-18.0) gm/dl Hct (42-50) % MCV (78-100) fl MCH (26-32) pg MCHC (32-36) g/dl RDW (11.5-14.0) % Plt Count (150-450) K/mm3 MPV (6-9.5) fl Gran % (36.0-66.0) % Eos # (Auto) (0-0.5) Absolute Lymphs (auto) (1.0-4.6) Absolute Monos (auto) (0.0-1.3) Lymphocytes % (24.0-44.0) % Monocytes % (0.0-12.0) % Eosinophils % (0.00-5.0) % Basophils % (0.0-0.4) % Absolute Granulocytes (1.4-6.9) Basophils # (0-0.4) PT (8.83-12.87) SECONDS INR (0.8-3.0) APTT (24.1-36.1) SECONDS D-Dimer (215-500) ng/mL Sodium (137-145) mmol/L Potassium (3.5-5.1) mmol/L Chloride (98-107) mmol/L Carbon Dioxide (22-30) mmol/L Anion Gap (5-15) MEQ/L BUN (9-20) mg/dL Creatinine (0.66-1.25) mg/dL Estimated GFR ML/MIN Glucose (74-106) mg/dL Calcium (8.4-10.2) mg/dL Total Bilirubin (0.2-1.3) mg/dL AST (17-59) U/L ALT (0-50) U/L Alkaline Phosphatase (38-126) U/L Serum Total Protein (6.3-8.2) g/dL Albumin (3.5-5.0) g/dL Amylase 88 (30-110) U/L Lipase 36 (23-300) U/L Urine Color YELLOW (YELLOW) Urine Appearance CLEAR (CLEAR) Urine pH 5.0 (5-6) Ur Specific [place] 1.020 (1.005-1.025) Urine Protein NEGATIVE (Negative) Urine Ketones NEGATIVE (NEGATIVE) Urine Blood NEGATIVE (0-5) Freddie/ul Urine Nitrite NEGATIVE (NEGATIVE) Urine Bilirubin NEGATIVE (NEGATIVE) Urine Urobilinogen NEGATIVE (0-1) mg/dL Ur Leukocyte Esterase NEGATIVE (NEGATIVE) Urine WBC (Auto) NONE (0-5) /HPF Urine RBC (Auto) NONE (0-2) /HPF U Epithel Cells (Auto) NONE (FEW) /HPF Urine Bacteria (Auto) NONE (NEGATIVE) /HPF Urine Mucus (Auto) SLIGHT (NEGATIVE) /HPF Urine Culture Reflexed NO (NO) Urine Glucose NEGATIVE (NEGATIVE) mg/dL Urine Opiates Level NEGATIVE (NEGATIVE) Ur Methadone NEGATIVE (NEGATIVE) Urine Barbiturates NEGATIVE (NEGATIVE) Ur Phencyclidine (PCP) NEGATIVE (NEGATIVE) Urine Amphetamine NEGATIVE (NEGATIVE) U Benzodiazepine Level NEGATIVE (NEGATIVE) Urine Cocaine NEGATIVE (NEGATIVE) Urine Marijuana (THC) NEGATIVE (NEGATIVE) 11/27/18 11/27/18 11/27/18 Range/Units 22:00 22:00 22:00 WBC 8.8 (4.0-10.5) K/mm3 RBC 4.37 (4.1-5.6) M/mm3 Hgb 13.7 (12.5-18.0) gm/dl Hct 39.5 L (42-50) % MCV 90.4 (78-100) fl MCH 31.4 (26-32) pg MCHC 34.7 (32-36) g/dl RDW 13.0 (11.5-14.0) % Plt Count 215 (150-450) K/mm3 MPV 9.0 (6-9.5) fl Gran % 67.1 H (36.0-66.0) % Eos # (Auto) 0.16 (0-0.5) Absolute Lymphs (auto) 2.03 (1.0-4.6) Absolute Monos (auto) 0.68 (0.0-1.3) Lymphocytes % 23.1 L (24.0-44.0) % Monocytes % 7.7 (0.0-12.0) % Eosinophils % 1.8 (0.00-5.0) % Basophils % 0.3 (0.0-0.4) % Absolute Granulocytes 5.88 (1.4-6.9) Basophils # 0.03 (0-0.4) PT 11.7 (8.83-12.87) SECONDS INR 1.01 (0.8-3.0) APTT 24.7 (24.1-36.1) SECONDS D-Dimer 1359 H* (215-500) ng/mL Sodium 139 (137-145) mmol/L Potassium 4.0 (3.5-5.1) mmol/L Chloride 107 (98-107) mmol/L Carbon Dioxide 24 (22-30) mmol/L Anion Gap 12.8 (5-15) MEQ/L BUN 16 (9-20) mg/dL Creatinine 0.68 (0.66-1.25) mg/dL Estimated GFR > 60.0 ML/MIN Glucose 89 (74-106) mg/dL Calcium 8.7 (8.4-10.2) mg/dL Total Bilirubin 0.30 (0.2-1.3) mg/dL AST 32 (17-59) U/L ALT 34 (0-50) U/L Alkaline Phosphatase 79 (38-126) U/L Serum Total Protein 7.3 (6.3-8.2) g/dL Albumin 4.0 (3.5-5.0) g/dL Amylase (30-110) U/L Lipase (23-300) U/L Urine Color (YELLOW) Urine Appearance (CLEAR) Urine pH (5-6) Ur Specific [place] (1.005-1.025) Urine Protein (Negative) Urine Ketones (NEGATIVE) Urine Blood (0-5) Freddie/ul Urine Nitrite (NEGATIVE) Urine Bilirubin (NEGATIVE) Urine Urobilinogen (0-1) mg/dL Ur Leukocyte Esterase (NEGATIVE) Urine WBC (Auto) (0-5) /HPF Urine RBC (Auto) (0-2) /HPF U Epithel Cells (Auto) (FEW) /HPF Urine Bacteria (Auto) (NEGATIVE) /HPF Urine Mucus (Auto) (NEGATIVE) /HPF Urine Culture Reflexed (NO) Urine Glucose (NEGATIVE) mg/dL Urine Opiates Level (NEGATIVE) Ur Methadone (NEGATIVE) Urine Barbiturates (NEGATIVE) Ur Phencyclidine (PCP) (NEGATIVE) Urine Amphetamine (NEGATIVE) U Benzodiazepine Level (NEGATIVE) Urine Cocaine (NEGATIVE) Urine Marijuana (THC) (NEGATIVE) - Progress Progress: improved Progress Note: 11/28/18 00:12 11/28/18 00:25 Is a 53-year-old white male who has a history 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 On arrival patient is noted to have somewhat cool left foot actually both feet appear to be somewhat cool. Initially it was felt that the patient had a positive hand-held Doppler with dorsal pedal posterior tibial pulses however patient continued to complain of pain in his left lower leg. The patient was noted to have a normal d-dimer. Patient had an x-ray of his lumbar spine which shows old hardware no acute fractures. Patient was given fentanyl for pain also IV normal saline he continued to have pain. Arterial and venous Doppler were obtained on the patient's left lower leg the technologist recorded of markedly decreased flow to the left lower extremity. There were no DVTs noted. I contacted both [facility] and [facility] unfortunately vascular services were not available at this time. I contacted [facility] implementation project manager. And had discussed the patient's with Dr. Macias and the vascular surgeon implementation project manager. the vascular surgeon feels it is unlikely that the patient would have acute arterial occlusion in the stent however the patient does continue to have pain in his left lower extremity he did have documented decreased arterial flow an arterial Dopplers. And it was felt that the patient should be further evaluated. Dr. Whiting has accepted the patient for transfer and for further evaluation. Impression 1 left lower extremity pain and paresthesia. 2. Abnormal arterial Doppler left lower extremity 11/28/18 00:35 is felt to... the 11/28/18 03:48 - Departure Departure Disposition: Transfer ([facility]) Clinical Impression: Left leg pain, Left leg paresthesias, abnormal arterial Doppler l lower extrem Condition: Fair Critical Care Time: No Referrals: TA MARTINEZ MD [Primary Care Provider] -
[2018-11-27] MEDS ORDERED: Sodium Chloride 0.9% 1000 ML 1,000 ML ONE (21:37)
[2018-11-27 22:11] LABS: BASOPHIL % 0.3 % (0.0-0.4); Basophil (Absolute #) 0.03 (0-0.4); Eosinophil % 1.8 % (0.00-5.0); Eosinophil (Absolute #) 0.16 (0-0.5); Granulocyte Absolute (ANC) 5.88 (1.4-6.9); Granulocytes % 67.1 % (36.0-66.0); Hematocrit 39.5 % (42-50); Hemoglobin 13.7 gm/dl (12.5-18.0); Lymphocyte (Absolute #) 2.03 (1.0-4.6); Lymphocytes % 23.1 % (24.0-44.0); Mean Cell Volume 90.4 fl (78-100); Mean Corpuscular Hemoglobin 31.4 pg (26-32); Mean Corpuscular Hgb Concent. 34.7 g/dl (32-36); Monocyte (Absolute #) 0.68 (0.0-1.3); Monocytes % 7.7 % (0.0-12.0); Platelet Count 215 K/mm3 (150-450); Red Blood Count 4.37 M/mm3 (4.1-5.6); White Blood Count 8.8 K/mm3 (4.0-10.5)
[2018-11-27] MEDS ORDERED: SUBLIMAZE 100 MCG/2 ML IV ONE (22:14)
[2018-11-27] MEDS ORDERED: SUBLIMAZE 100 MCG/2 ML ONE (22:18)
[2018-11-27 22:24] LABS: INR 1.01 (0.8-3.0); PROTIME 11.7 SECONDS (8.83-12.87)
[2018-11-27 22:27] LABS: AMYLASE 88 U/L (30-110); LIPASE 36 U/L (23-300); PTT 24.7 SECONDS (24.1-36.1)
[2018-11-27 22:29] LABS: ALKALINE PHOSPHATASE 79 U/L (38-126); ANION GAP 12.8 MEQ/L (5-15); BLOOD UREA NITROGEN 16 mg/dL (9-20); CHLORIDE 107 mmol/L (98-107); Calcium 8.7 mg/dL (8.4-10.2); Carbon Dioxide 24 mmol/L (22-30); Creatinine 1 0.68 mg/dL (0.66-1.25); Glucose 89 mg/dL (74-106); SGOT/AST 32 U/L (17-59); SGPT/ALT 34 U/L (0-50); SODIUM 139 mmol/L (137-145); Total Protein 7.3 g/dL (6.3-8.2)
[2018-11-27 23:17] LABS: Appearance CLEAR (CLEAR); Bilirubin NEGATIVE (NEGATIVE); Blood NEGATIVE Ery/ul (0-5); Glucose NEGATIVE (NEGATIVE); Ketones NEGATIVE (NEGATIVE); Leukocyte Esterase NEGATIVE (NEGATIVE); Mucus SLIGHT /HPF (NEGATIVE); Nitrite NEGATIVE (NEGATIVE); Protein,Urine Dip NEGATIVE (Negative); Urobilinogen NEGATIVE mg/dL (0-1)
[2018-11-27 23:29] LABS: Amphetamine,Urine NEGATIVE (NEGATIVE); Barbiturate,Urine NEGATIVE (NEGATIVE); Benzodiazepine,Urine NEGATIVE (NEGATIVE); Cocaine,Urine NEGATIVE (NEGATIVE); Methadone,Urine NEGATIVE (NEGATIVE); Opiate,Urine NEGATIVE (NEGATIVE); PCP,Urine NEGATIVE (NEGATIVE); THC,Urine NEGATIVE (NEGATIVE)
[2018-11-28] MEDS ORDERED: SUBLIMAZE 100 MCG/2 ML IV ONE (00:01)
[2018-11-28] MEDS ORDERED: SUBLIMAZE 100 MCG/2 ML ONE (00:04)
[2018-11-28 01:43] VITALS: BP 133/83; PULSE 70
[2018-11-28 03:49] VITALS: O2SAT 96
--- NOTE | 2018-11-28 08:38 | XRAY ---
Indication: Left leg pain. Two-dimensional sonogram and color Doppler imaging of the major venous vessels of the left leg was performed. Comparison: None No thrombus seen in the examined deep venous vessels of the left leg including greater saphenous vein. Veins demonstrate normal compressibility. Venous waveforms are normal with and without augmentation. Impression: Left leg negative for DVT. Comment: Preliminary report was given.
--- NOTE | 2018-11-28 08:41 | XRAY ---
Indication: Low back pain. No known injury. Comparison: January 17, 2017. 3 views of the lumbar spine again demonstrates normal lumbar alignment with minimal multilevel anterior endplate spurring, L4-L5 degenerative disc disease, scattered vascular calcifications, and left iliac/common femoral artery stent graft. New L3-L4 spinous process hardware. No other bony, articular, or soft tissue abnormalities.
--- NOTE | 2018-11-28 09:22 | XRAY ---
Indication: Left leg pain. Two-dimensional sonogram and color Doppler imaging of the major arteries of the left leg was performed. Comparison: February 13, 2013. New partially visualized common femoral artery stent graft that appears occluded. Further occluded proximal superficial femoral artery. Remaining mid to distal superficial femoral artery demonstrates moderate arteriosclerotic disease. Remaining popliteal, posterior tibial, and dorsal pedal arteries are negative for critical stenosis/obstruction. However distal superficial femoral, popliteal, posterior tibial, and dorsal pedal arterial waveforms are markedly attenuated and monophasic presumed from common femoral artery occlusion. Impression: New occluded common femoral stent graft and proximal superficial femoral artery. Subsequent distal arterial flow is attenuated with monophasic arterial waveforms. Comment: Preliminary report was given.
== END 2018-11-28 01:25 | disposition short-term general hospital (02) ==
LOC: ED 20:51
DX: R20.2 Paresthesia of skin (principal); Q89.9 Congenital malformation, unspecified; R94.39 Abnormal result of other cardiovascular function study; Z79.899 Other long term (current) drug therapy
CPT/HCPCS: 36000; 36415; 72100; 80053; 80307; 81001; 82150; 83690; 85025; 85379; 85610; 85730; 93926; 93971; 96360; 96374; 96375; 96376; 99285; J3010

== ENCOUNTER 2020-10-23 02:28 | Emergency (ER) | payer MEDICARE ==
[2020-10-23] MEDS ORDERED: Zofran 4 MG/2 ML VIAL IV ONE (03:06)
[2020-10-23] MEDS ORDERED: Sodium Chloride 0.9% 1000 ML 1,000 ML IV STA (03:06)
[2020-10-23] MEDS ORDERED: BABY ASPIRIN 81 MG CHEW PO ONE (03:06)
[2020-10-23] MEDS ORDERED: Ativan 2 MG/1 ML VIAL IV ONE (03:08)
[2020-10-23] MEDS ORDERED: BABY ASPIRIN 81 MG CHEW ONE (03:12)
[2020-10-23] MEDS ORDERED: Zofran 4 MG/2 ML VIAL ONE (03:12)
[2020-10-23] MEDS ORDERED: Ativan 2 MG/1 ML VIAL ONE (03:13)
[2020-10-23] MEDS ORDERED: Sodium Chloride 0.9% 1000 ML 1,000 ML ONE (03:13)
--- NOTE | 2020-10-23 03:14 | ERPHSYRPT ---
- History of Present Illness Time Seen by Provider: 10/23/20 02:59 Source: patient Exam Limitations: no limitations Patient Subjective Stated Complaint: pt states he has been having tinglin in his legs and feet tonight. states he was concerned that he didnt have good circu lation in his legs d/t having stents in his legs. states he has been dizzy since this started as well. Triage Nursing Assessment: pt alert and oriented, answers questions approp. pt arrive per ambulance and ambulates into the room with steady gait noted. respirations nonlabored. skin pink warm and dry. heart rate 90 on monitor, sinus rhythm. cap refill and pedal pulses bilat wnl. Physician History: Patient is here with tingling in bilateral legs. Patient states that he has had this happen before. He has had back surgery before. No falls no trauma. No fever no chills. Patient has history of some artery stents. However he states that he does have feeling in his legs. 2+ distal pulses. Able ambulate without difficulty. Most importantly, patient states he is out of his anxiety medication today. He states that he feels that this is somewhat contributing. Symptoms started at 11 PM last night. And have continued. He has not prog ressed, has not gotten worse. He has not tried anything at home to make it better or worse. He does report some dizziness. Patient has no red flag symptoms for back pain today: No Loss of control of the bowel or bladder. No weakness or numbness in a leg or arm. No foot drop, disturbed gait. No high fever, no IV drug use. No saddle anaesthesia (numbness of the anus, perineum or genitals). No trauma or h/o cancer Timing/Duration: today Severity: moderate Allergies/Adverse Reactions: No Known Drug Allergies Allergy (Verified 10/23/20 02:47) Home Medications: Aspirin EC 81 mg [Ecotrin 81 mg] 81 mg PO DAILY 11/27/18 [History] Clopidogrel Bisulfate 75 mg [PLAVIX 75 MG Tablet] 75 mg PO DAILY 11/27/18 [History] Cyclobenzaprine HCl 10 mg [Cyclobenzaprine 10 MG] 10 mg PO TID 11/27/18 [History] Duloxetine HCl 60 mg PO BID 11/27/18 [History] Fluticasone Propionate [Flonase NASAL] 16 gm NS DAILY 11/27/18 [History] Gabapentin 100 mg PO TID 11/27/18 [History] Lipase/Protease/Amylase [Jb Mccall 6,000 Units Capsule] 1 each PO TID 11/27/18 [History] Montelukast Sodium 10 mg [Singulair 10 MG] 10 mg PO QPM 11/27/18 [History] Clonazepam 0.5 mg [Klonopin 0.5 MG] 0.5 mg PO BID 10/23/20 [History] PANTOPRAZOLE 40 mg Tablet [Protonix 40MG Tablet] 40 mg PO QAM 10/23/20 [History] Hx Tetanus, Diphtheria Vaccination/Date Given: Yes Hx Influenza Vaccination/Date Given: Yes Hx Pneumococcal Vaccination/Date Given: Yes Immunizations Up to Date: Yes Travel Risk - International Travel Have you traveled outside of the country in past 3 weeks: No - Coronavirus Screening Close contact with a COVID-19 positive Pt in past 14-21 Days: No - Vaccine Status Have you recieved a Covid-19 vaccination: No - Review of Systems Constitutional: No Fever, No Chills Eyes: No Symptoms Ears, Nose, & Throat: No Symptoms Respiratory: No Cough, No Dyspnea Cardiac: No Chest Pain, No Edema, No Syncope Abdominal/Gastrointestinal: No Abdominal Pain, No Nausea, No Vomiting, No Diarrhea Genitourinary Symptoms: No Dysuria Musculoskeletal: No Back Pain, No Neck Pain Skin: No Rash Neurological: Other (Bilateral leg tingling.), No Dizziness, No Focal Weakness, No Sensory Changes Psychological: No Symptoms Endocrine: No Symptoms All Other Systems: Reviewed and Negative - Past Medical History Pertinent Past Medical History: Yes Neurological History: No Pertinent History ENT History: No Pertinent History Cardiac History: Hypertension, Other Respiratory History: No Pertinent History Endocrine Medical History: No Pertinent History Musculoskeletal History: No Pertinent History GI Medical History: Pancreatitis, Ulcer, Other History: No Pertinent History Psycho-Social History: No Pertinent History Male Reproductive Disorders: No Pertinent History Other Medical History: Arterial occlusion leg. pt states he has had partial bowel blockage in past., degenerative discs - Past Surgical History Past Surgical History: Yes Neuro Surgical History: No Pertinent History Cardiac: Vascular Surgery Respiratory: No Pertinent History Gastrointestinal: Other Genitourinary: No Pertinent History Musculoskeletal: No Pertinent History Male Surgical History: No Pertinent History Other Surgical History: stent in leg and arterial graft. back surgery 2017 - Social History Smoking Status: Current every day smoker How long have you smoked: years Exposure to second hand smoke: No Drug Use: none Patient Lives Alone: No - Nursing Vital Signs Nursing Vital Signs: Initial Vital Signs Temperature 97.2 F 10/23/20 02:31 Pulse Rate 93 H 10/23/20 02:31 Respiratory Rate 18 10/23/20 02:31 Blood Pressure 145/124 10/23/20 02:31 O2 Sat by Pulse Oximetry 99 10/23/20 02:31 Pain Scale Pain Intensity 4 - Physical Exam General Appearance: no apparent distress, alert Eye Exam: PERRL/EOMI, eyes nml inspection Ears, Nose, Throat Exam: normal ENT inspection, TMs normal, pharynx normal, moist mucous membranes Neck Exam: normal inspection, non-tender, supple, full range of motion Respiratory Exam: normal breath sounds, lungs clear, No respiratory distress Cardiovascular Exam: regular rate/rhythm, normal heart sounds, normal peripheral pulses Gastrointestinal/Abdomen Exam: soft, normal bowel sounds, No tenderness, No mass Back Exam: normal inspection, normal range of motion, No CVA tenderness, No vertebral tenderness Extremity Exam: normal inspection, normal range of motion, pelvis stable Neurologic Exam: alert, oriented x 3, cooperative, normal mood/affect, nml cerebellar function, nml station & gait, sensation nml, No motor deficits Skin Exam: normal color, warm, dry, No rash Lymphatic Exam: No adenopathy SpO2 Interpretation: normal SpO2: 99 Comments: 10/23/20 03:15 Patient has a normal lower extremity exam: No obvious deformity, sensation intact, 2+ capillary refill, 2 point tactile discrimination intact. 5 out of 5 strength. Full range of motion without pain. Compartments are soft, nontender. Overlying skin shows no tenting, bruising, ecchymosis. Patient also has a normal neurological exam: Motor: There is no pronator drift of out-stretched arms. Muscle bulk and tone are normal. Strength is full bilaterally. Reflexes: Reflexes are 2+ and symmetric at the biceps, triceps, knees, and ankles. Plantar responses are flexor. Sensory: Light touch sense are intact in bilateral upper and lower extremities. There is no sign of neglect. Coordination: Rapid alternating movements are intact. There is no dysmetria on [id number] and [id number]. There are no abnormal or extraneous movements. Romberg is absent. Gait/Stance: Posture is normal. Gait is steady with normal steps, base, arm swing, and turning. Heel and toe walking are normal. Tandem gait is normal. No saddle anesthesia. No tingling on my exam. No paresthesias on my exam. - Course Nursing assessment & vital signs reviewed: Yes EKG Interpreted by Me: Sinus Rhythm Ordered Tests: Active Orders 24 hr Category Date Time Status EKG-ER Only STAT Care 10/23/20 03:06 Active IV Insertion STAT Care 10/23/20 03:06 Active CBC W DIFF Stat Lab 10/23/20 03:30 Completed CMP Stat Lab 10/23/20 03:30 Completed TROPONIN Q3H Lab 10/23/20 03:30 Completed TROPONIN Q3H Lab 10/23/20 06:15 Ordered TROPONIN Q3H Lab 10/23/20 09:15 Ordered TROPONIN Q3H Lab 10/23/20 12:15 Ordered TROPONIN Q3H Lab 10/23/20 15:15 Ordered Medication Summary Discontinued Medications Generic Name Dose Route Start Last Admin Trade Name Freq PRN Reason Stop Dose Admin Aspirin 324 mg 10/23/20 03:06 10/23/20 03:20 Baby Aspirin 81 Mg Chew PO 10/23/20 03:07 324 mg STAT ONE Administration Aspirin Confirm 10/23/20 03:12 Baby Aspirin 81 Mg Chew Administered 10/23/20 03:13 Dose 324 mg .ROUTE .STK-MED ONE Sodium Chloride 1,000 mls @ 999 mls/hr 10/23/20 03:06 10/23/20 03:20 Sodium Chloride 0.9% 1000 Ml IV 10/23/20 04:06 999 mls/hr .Q1H1M STA Administration Sodium Chloride Confirm 10/23/20 03:13 Sodium Chloride 0.9% 1000 Ml Administered 10/23/20 03:14 Dose 1,000 mls @ ud .ROUTE .STK-MED ONE Lorazepam 1 mg 10/23/20 03:08 10/23/20 03:20 Ativan 2 Mg/1 Ml Vial IV 10/23/20 03:09 1 mg STAT ONE Administration Lorazepam Confirm 10/23/20 03:13 Ativan 2 Mg/1 Ml Vial Administered 10/23/20 03:14 Dose 2 mg .ROUTE .STK-MED ONE Ondansetron HCl 4 mg 10/23/20 03:06 10/23/20 03:20 Zofran 4 Mg/2 Ml Vial IV 10/23/20 03:07 4 mg STAT ONE Administration Ondansetron HCl Confirm 10/23/20 03:12 Zofran 4 Mg/2 Ml Vial Administered 10/23/20 03:13 Dose 4 mg .ROUTE .STK-MED ONE Lab/Rad Data: Laboratory Result Diagrams 10/23/20 03:30 10/23/20 03:30 Laboratory Results 10/23/20 10/23/20 10/23/20 Range/Units 03:30 03:30 03:30 WBC 6.1 (4.0-10.5) K/mm3 RBC 4.34 (4.1-5.6) M/mm3 Hgb 13.5 (12.5-18.0) gm/dl Hct 40.8 L (42-50) % MCV 94.0 (78-100) fl MCH 31.1 (26-32) pg MCHC 33.1 (32-36) g/dl RDW 13.6 (11.5-14.0) % Plt Count 269 (150-450) K/mm3 MPV 9.6 (7.5-11.0) fl Gran % 55.3 (36.0-66.0) % Eos # (Auto) 0.20 (0-0.5) Absolute Lymphs (auto) 1.94 (1.0-4.6) Absolute Monos (auto) 0.56 (0.0-1.3) Lymphocytes % 31.9 (24.0-44.0) % Monocytes % 9.2 (0.0-12.0) % Eosinophils % 3.3 (0.00-5.0) % Basophils % 0.3 (0.0-0.4) % Absolute Granulocytes 3.36 (1.4-6.9) Basophils # 0.02 (0-0.4) Sodium 140 (137-145) mmol/L Potassium 3.3 L (3.5-5.1) mmol/L Chloride 103 (98-107) mmol/L Carbon Dioxide 25 (22-30) mmol/L Anion Gap 15.0 (5-15) MEQ/L BUN 14 (9-20) mg/dL Creatinine 0.75 (0.66-1.25) mg/dL Estimated GFR > 60.0 ML/MIN Glucose 133 H (74-106) mg/dL Calcium 9.6 (8.4-10.2) mg/dL Total Bilirubin 0.40 (0.2-1.3) mg/dL AST 41 (17-59) U/L ALT 51 H (0-50) U/L Alkaline Phosphatase 75 (38-126) U/L Troponin I < 0.012 (0.000-0.034) ng/mL Serum Total Protein 7.4 (6.3-8.2) g/dL Albumin 4.4 (3.5-5.0) g/dL - Progress Progress: improved Progress Note: 10/23/20 03:16 Differential diagnosis includes anxiety, electrolyte abnormality, chronic pain, postop issue, sciatic nerve pain. -Will obtain basic labs, Ativan, aspirin, troponin, EKG. 10/23/20 04:24 - I feel comfortable with one time negative troponin given symptoms have improved and started greater then 6 hours ago. - EKG shows no ST changes - my read. See full read below. - O2 saturations consistently greater than 95% - no other obvious lab abnormalities Patient is feeling improved on reexam. He did state he felt the Ativan helped. Neurological reexam demonstrated no obvious neuro deficits. Reflexes and strength remain normal. Continue no numbness. Lower suspicion for a vascular emergency at this point time given continued repeat normal exams with 2+ distal pulses. Full range of motion without pain. I do believe patient could benefit from a repeat neurological exam with his PCP tomorrow. He should return here fo r any new or changing symptoms. Plan of care was discussed with patient and all questions answered. The patient is agreeable to be discharged home and both verbal and printed discharge instructions were provided.The patient agreed to seek outpatient follow up as discussed. The patient was given strict instructions to return to the emergency department for worsening symptoms or any other emergent concerns. The patient verbalized understanding. Counseled pt/family regarding: lab results, diagnosis, need for follow-up, rad results, smoking cessation - Departure Departure Disposition: Home Clinical Impression: Distal paresthesia Condition: Stable Critical Care Time: No Referrals: TA MARTINEZ MD [Primary Care Provider] - Instructions: Dizziness, Nonvertigo, (DC) Additional Instructions: See tomorrow for reexam with PCP. Return for new or changing symptoms.
[2020-10-23 03:50] LABS: Absolute Neutrophil Ct (ANC) 3.36 (1.4-6.9); BASOPHIL % 0.3 % (0.0-0.4); Basophil (Absolute #) 0.02 (0-0.4); Eosinophil % 3.3 % (0.00-5.0); Hematocrit 40.8 % (42-50); Hemoglobin 13.5 gm/dl (12.5-18.0); Lymphocyte (Absolute #) 1.94 (1.0-4.6); Lymphocytes % 31.9 % (24.0-44.0); Mean Corpuscular Hemoglobin 31.1 pg (26-32); Mean Corpuscular Hgb Concent. 33.1 g/dl (32-36); Mean Platelet Volume 9.6 fl (7.5-11.0); Monocyte (Absolute #) 0.56 (0.0-1.3); Monocytes % 9.2 % (0.0-12.0); Neutrophil % 55.3 % (36.0-66.0); Platelet Count 269 K/mm3 (150-450); Red Blood Count 4.34 M/mm3 (4.1-5.6); Red Cell Distribution Width 13.6 % (11.5-14.0); White Blood Count 6.1 K/mm3 (4.0-10.5)
[2020-10-23 03:54] LABS: ALBUMIN 4.4 g/dL (3.5-5.0); ALKALINE PHOSPHATASE 75 U/L (38-126); BLOOD UREA NITROGEN 14 mg/dL (9-20); CHLORIDE 103 mmol/L (98-107); Calcium 9.6 mg/dL (8.4-10.2); Carbon Dioxide 25 mmol/L (22-30); Creatinine 1 0.75 mg/dL (0.66-1.25); EST GLOMERULAR FILTRATION RATE > 60.0 ML/MIN; Glucose 133 mg/dL (74-106); Potassium 3.3 mmol/L (3.5-5.1); SGOT/AST 41 U/L (17-59); SGPT/ALT 51 U/L (0-50); SODIUM 140 mmol/L (137-145); Total Protein 7.4 g/dL (6.3-8.2)
[2020-10-23 05:04] VITALS: BP 107/72; PULSE 77; O2SAT 98
== END 2020-10-23 05:09 | disposition home or self-care (01) ==
LOC: ED 02:28
DX: R20.2 Paresthesia of skin (principal)
CPT/HCPCS: 36000; 36415; 80053; 84484; 85025; 93005; 96360; 96374; 96375; 99284; J2060; J2405; A9270-GY

== ENCOUNTER 2024-06-05 13:14 | Day surgery (SDC) | payer MEDICARE ==
[2024-06-05] MEDS ORDERED: Xylocaine-Mpf 2% 5 Ml Vial IJ ONE (13:15)
[2024-06-05] MEDS ORDERED: Decadron 4 MG INJ IV ONE (13:15)
[2024-06-05] MEDS ORDERED: DIPRIVAN 200 MG/20 ML IV ONE (16:02)
--- NOTE | 2024-06-05 17:15 | XRAY ---
Indication: Left C2-C4 MBB. Intraoperative fluoroscopy provided for 14 second. 2 digital spot image submitted for interpretation demonstrates posterior needle tips projecting over expected left C2-C4 nerve roots. Correlate with intraoperative findings/report.
--- NOTE | 2024-06-06 09:10 | XRAY ---
14 seconds of fluoroscopy was used in surgery for a left C2-C4 MBB.
== END 2024-06-05 16:32 ==
LOC: SDC-PAIN 13:14
PROVIDERS: ATTEND Psychiatry & Neurology Pain Medicine
DX: M47.812 Spondylosis without myelopathy or radiculopathy, cervical region (principal)
CPT/HCPCS: 64490; 64491; 72040; 77002; J1100; J2704

== ENCOUNTER 2024-08-15 14:08 | Day surgery (SDC) | payer MEDICARE ==
[2024-08-15] MEDS ORDERED: BUPIVACAINE 0.5% VIAL IJ ONE (14:09)
[2024-08-15] MEDS ORDERED: dexAMETHasone sodium phosphate IJ ONE (14:09)
[2024-08-15] MEDS ORDERED: propofoL IV ONE (15:16)
--- NOTE | 2024-08-15 16:30 | XRAY ---
Indication: Left C2-C4 MBB. Intraoperative fluoroscopy provided for 9 seconds. 3 digital spot image submitted for interpretation demonstrates posterior needle tips projecting over expected left C2-C4 nerve roots. Correlate with intraoperative findings/report.
--- NOTE | 2024-08-16 09:24 | XRAY ---
9 seconds of fluoroscopy was used in surgery for a left C2-C4 MBB.
== END 2024-08-15 15:45 | disposition home or self-care (01) ==
LOC: SDC-PAIN 14:08
PROVIDERS: ATTEND Psychiatry & Neurology Pain Medicine
DX: M47.812 Spondylosis without myelopathy or radiculopathy, cervical region (principal)
CPT/HCPCS: 64490; 64491; 72040; 77002; J1100; J2704

== ENCOUNTER 2024-09-25 11:43 | Day surgery (SDC) | payer MEDICARE ==
[2024-09-25] MEDS ORDERED: dexAMETHasone sodium phosphate IJ ONE (11:44)
[2024-09-25] MEDS ORDERED: LIDOCAINE HCL 1% AMPUL 5 ML IJ ONE (11:44)
[2024-09-25] MEDS ORDERED: BUPIVACAINE 0.5% VIAL IJ ONE (11:44)
[2024-09-25] MEDS ORDERED: Lactated Ringers 500 ML IV ONE (12:35)
[2024-09-25] MEDS ORDERED: propofoL IV ONE (14:49)
--- NOTE | 2024-09-25 15:09 | XRAY ---
Indication: Left C2-C4 RFA. Intraoperative fluoroscopy provided for 23 seconds. 4 digital spot image submitted for interpretation demonstrates posterior needle tips projecting over expected left C2-C4 nerve roots. Correlate with intraoperative findings/report.
--- NOTE | 2024-09-25 15:35 | XRAY ---
23 seconds of fluoroscopy was used in surgery for a left C2-C4 RFA.
== END 2024-09-25 14:55 | disposition home or self-care (01) ==
LOC: SDC-PAIN 11:43
PROVIDERS: ATTEND Psychiatry & Neurology Pain Medicine
DX: M48.12 Ankylosing hyperostosis [Forestier], cervical region (principal)
CPT/HCPCS: 64633; 64634; 72040; 77002; J1100; J2704